=== PATIENT | male | born 1960 | race Caucasian/White ===

== ENCOUNTER → 2018-07-25 10:20 | Outpatient (CLI) | payer OTHER, SELFPAY | PROVIDERS: PCP Family Medicine; Visit Provider Family Medicine | DX: R20.0 Anesthesia of skin (principal) | CPT/HCPCS: 95885; 95886; 95912 ==

== ENCOUNTER → 2019-01-15 13:24 | Outpatient (CLI) | payer OTHER, SELFPAY ==
--- NOTE | 2019-01-15 | DI.MRI.S_ITS ---
PROCEDURE: MR CERVICAL SPINE WO CON INDICATIONS: Anesthesia of skin TECHNIQUE: Noncontrast sagittal T1 spin echo and T2 fast spin echo, sagittal STIR, foraminal oblique sagittal T2 fast spin echo, and axial gradient echo or T2 fast spin echo through the cervical spine. COMPARISON: None. FINDINGS: Image quality: Excellent. Alignment and Curvature: There is trace anterolithesis of C3 on C4, C4 on C5, Grade I anterolithesis of C7 on T1, trace retrolithesis of C5 on C6. Bone Marrow: Marrow demonstrates normal overall signal. Spinal Cord: Visualized spinal cord has normal size and signal. No cerebellar tonsillar herniation. Paraspinous Soft Tissues: No paravertebral masses. Prevertebral soft tissues are normal in thickness. Multilevel moderate to severe disc dessication is present,most severe at C5-6 to C7-T1. C2-C3: Mild disc bulge without spinal stenosis. Moderate left foraminal narrowing with uncovertebral hypertrophy. C3-C4: Mild disc bulge without spinal stenosis. Moderate right and moderate to severe left foraminal narrowing with uncovertebral hypertrophy. C4-C5: Mild disc bulge without spinal stenosis. Severe right and minmal left foraminal narrowing with uncovertebral hypertrophy. C5-C6: Mild disc bulge without spinal stenosis. Severe bilateral foraminal narrowing with uncovertebral hypertrophy. C6-C7: Mild disc bulge with moderate spinal stenosis. Severe bilateral foraminal narrowing with uncovertebral hypertrophy. C7-T1: No disc bulge or spinal stenosis. Mild right foraminal narrowing with uncovertebral hypertrophy. IMPRESSION: 1. Multilevel disc bulge. 2. Multilevel foraminal narrowing, severe at C4-5, C5-6 and C6-7 secondary to uncovertebral arthropathy as well as anterior/retrolisthesis. Dictated by: Shavonne Ames M.D. on 01/16/2019 at 11:52 Approved by: Shavonne Ames M.D. on 01/16/2019 at 13:44
== END ==
PROVIDERS: PCP Family Medicine; Visit Provider Orthopaedic Surgery
DX: M47.812 Spondylosis without myelopathy or radiculopathy, cervical region (principal); M50.21 Other cervical disc displacement, high cervical region; M48.02 Spinal stenosis, cervical region; M43.13 Spondylolisthesis, cervicothoracic region; R20.0 Anesthesia of skin; G11.1 Early-onset cerebellar ataxia
CPT/HCPCS: 72141

== ENCOUNTER 2019-08-11 15:26 | Emergency (ER) | payer MEDICARE, SELFPAY ==
[2019-08-11] VITALS (9 sets, daily range): BP systolic 142–174; BP diastolic 70–83; PULSE 66–82; RESP 16–27; TEMP 37.4; O2SAT 96–98
--- NOTE | 2019-08-11 15:56 | DI.RAD.S_ITS ---
PROCEDURE: XR CHEST 1V INDICATIONS: flu-like symptoms TECHNIQUE: One view of the chest was acquired. COMPARISON: [facility], , CHEST 1 VIEW, 03/14/2011, 9:34. FINDINGS: Surgical changes and devices: None. Lungs and pleura: Left basilar atelectasis. Lungs are otherwise clear. No pleural effusions or pneumothorax. Mediastinum: Mediastinal contours appear normal. Heart size is normal. Bones and chest wall: No suspicious bony lesions. Overlying soft tissues appear unremarkable. IMPRESSION: No acute cardiopulmonary disease. Left basilar atelectasis. Dictated by: Mercedes Palmer M.D. on 08/11/2019 at 16:37 Approved by: Merceeds Palmer M.D. on 08/11/2019 at 16:38
[2019-08-11 16:27] LABS: Add Manual Diff / Slide Review NO; Basophils Absolute Auto 0 /uL (0-100); Basophils Percent Auto 0.4 % (0-2); Eosinophils Absolute Auto 100 /uL (0-450); Eosinophils Percent Auto 1.3 % (2-4); Hematocrit 41.2 % (41-53); Hemoglobin 14.3 g/dL (13.5-17.5); Lymphocytes Absolute Auto 2100 /uL (1100-4500); Lymphocytes Percent Auto 22.7 % (25-40); Mean Corpuscular HGB Conc 34.6 % (30-36); Mean Corpuscular Hemoglobin 32.5 PG (26-34); Monocytes Absolute Auto 900 /uL (0-900); Monocytes Percent Auto 9.8 % (3-14); Neutrophils Absolute Auto 6000 /uL (1500-7000); Neutrophils Percent Auto 65.8 % (50-75); Platelet Count 238 X10^3/uL (150-400); Red Blood Cell Count 4.39 X10^6/uL (4.5-5.9); Red Cell Distribution Width 13.5 % (11.6-14.8); White Blood Cell Count 9.1 X10^3/uL (4.5-11.0)
--- NOTE | 2019-08-11 16:31 | ED.FEVER ---
HPI - Fever General Chief Complaint: Fever Stated Complaint: COVID Symptoms Time Seen by Provider: 08/11/19 15:58 Source: patient and family Mode of arrival: Wheelchair Limitations: no limitations History of Present Illness HPI Narrative: CC: Fever HPI: Her and the patient is a 59-year-old male. He is sitting in a wheelchair. He has a history of Freiderech's Ataxia. The patient is a poor historian with wondering speech. He complains that he has had internal corrosion specialist min today and fever with low-grade temperature. He states that he has had intermittent persistent nausea and vomiting with anorexia since Sunday of last week. He states that he has had decreased coordination intermittent slowed speech. He has been complaining of fever chills and night sweats. He has had a mild headache for the last day prior to admission. He denies any changes in vision or diplopia. He has had no nasal drainage but has trouble swallowing and has a history of aspiration pneumonia in the past. He has had a cough that has been productive of a clear sputum associated with shortness of breath but no chest pain. He denies any indigestion or heartburn. He has had intermittent nausea and vomiting. He states that over the last several weeks he has been anorectic and has lost weight because his pants no longer fit. He denies any urinary symptoms dysuria frequency urgency pain or discomfort. He was concerned that he may have Covid 19 so he came into the emergency department to be evaluated. Related Data Previous Rx's Medication Instructions Recorded cyclobenzaprine 10 mg PO TID PRN #15 tab 08/11/19 doxycycline hyclate 100 mg PO BID #14 tab 08/11/19 naproxen [Naprosyn] 500 mg PO BID PRN #20 tab 08/11/19 ondansetron HCl [Zofran] 4 mg PO Q6H PRN #15 tab 08/11/19 Allergies Allergy/AdvReac Type Severity Reaction Status Date / Time acetaminophen AdvReac Severe Confusion Verified 08/11/19 15:54 Review of Systems Review of Systems Narrative: His review of systems were all negative except for those mentioned in the history of present illness. Patient History Social History Smoking Status: Former smoker Smoking Status: Former smoker alcohol intake frequency: 3 or more drinks per day Substance Use Type: marijuana Exam Narrative Exam Narrative: PHYSICAL EXAM: CONSTITUTIONAL: Awake, Alert, Oriented, Coherent, Cooperative in NAD. Does not appear toxic or ill. Patient is sitting in a wheelchair and refuses to get out of the wheelchair because of having increased pain and discomfort. She HEAD: AT/NC EENT: PERRL, FROM of eyes, no discharge. NOSE:No epistaxis or nasal drainage MOUTH:Oral mucosa is moist and pink, posterior pharynx is without erythema or exudate. NECK: Supple, no obvious JVD, Trachea is midline without stridor, no palpable LN. SPINE: Palpation of the cervical spine sitting in his wheelchair reveals no tenderness or deformity. THORAX: No deformity, retractions, chest wall tenderness. LUNGS: Clear, symmetrical decreased breath sounds without respiratory distress. HEART: Normal heart tones, regular rhythm and rate without murmur. ABDOMEN: Soft, non-tender, no guarding, rebound, rigidity or palpable mass. EXTREMITIES: No edema, deformity, tenderness or cyanosis. SKIN: No rash, bruising, NEURO: Awake, alert, oriented, conversive, cranial nerves II-XII are symmetrical , arms but his legs are splinted in secured to the wheelchair. MENTAL HEALTH: Does not appear anxious or depressed. Initial Vital Signs Initial Vital Signs: Vital Signs Temperature 99.3 F 08/11/19 15:35 Pulse Rate 78 08/11/19 15:35 Respiratory Rate 20 08/11/19 15:35 Blood Pressure 142/83 H 08/11/19 15:35 Pulse Oximetry 98 08/11/19 15:35 Course Course Course Narrative: 1631: The piece shins EKG reveals a normal sinus rhythm with a ventricular rate of 78. DC interval is normal at 132 milliseconds QRS is normal at 78 milliseconds QTC is slightly prolonged at 474 milliseconds and the axis is borderline left axis. The patient has an inverted T-wave in AVF and III with a Q-wave in lead III. There is a QS wave in V1 with flat T-waves. There is an occasional PVC. There are no other acute diagnostic ST or T-wave changes noted. 1826: Chest x-ray reveals no acute cardiopulmonary disease left basilar atelectasis. The patient will be discharged home and treated as though he has acute bronchitis being placed on doxycycline. Orders Ordered: ED Orders 08/11/19 15:55 EKG-12 Lead Stat 07/06/20 15:56 XR chest 1V Stat 08/11/19 16:08 C-Reactive Protein Quant Stat Complete Blood Count AUTO DIFF Stat Comprehensive Metabolic Panel Stat D Dimer Stat Ferritin Stat Lactate (Lactic Acid) Stat Lipase Stat NT-proBNP (BNP-Adult 18+) Stat Procalcitonin Stat Troponin & CK Cardiac Panel Stat 08/11/19 16:12 Blood Culture Stat Discontinued Medications Sodium Chloride (Normal Saline 0.9%) 1,000 mls @ 250 mls/hr IV BOLUS ONE Stop: 08/11/19 19:56 Last Infusion: 08/11/19 19:06 Dose: 0 mls/hr Documented by: Admin: 08/11/19 17:05 Dose: 250 mls/hr Documented by: AMANDA Vital Signs Vital signs: Vital Signs - 8 hr 08/11/19 15:35 08/11/19 16:00 08/11/19 16:30 Temperature 99.3 F Pulse Rate 78 76 76 Respiratory Rate 20 27 H Blood Pressure 142/83 H 148/83 H 144/78 H Pulse Oximetry 98 98 97 08/11/19 17:00 08/11/19 17:30 08/11/19 18:00 Temperature Pulse Rate 73 71 82 Respiratory Rate 20 19 27 H Blood Pressure 142/70 H 142/78 H 147/80 H Pulse Oximetry 97 97 97 08/11/19 18:30 08/11/19 19:00 08/11/19 19:08 Temperature Pulse Rate 66 69 74 Respiratory Rate 16 20 18 Blood Pressure 167/78 H 174/83 H 174/83 H Pulse Oximetry 96 98 98 MDM - Fever Medical Records Attestation: I reviewed the patient's medical records. Lab Data Attestation: I reviewed the patient's lab results. Result diagrams: 08/11/19 16:08 08/11/19 16:08 Labs: Lab Results 08/11/19 08/11/19 08/11/19 Range/Units 16:08 16:08 16:08 WBC 9.1 (4.5-11.0) X10^3/uL RBC 4.39 L (4.5-5.9) X10^6/uL Hgb 14.3 (13.5-17.5) g/dL Hct 41.2 (41-53) % MCV 94.0 (80-100) fL MCH 32.5 (26-34) PG MCHC 34.6 (30-36) % RDW 13.5 (11.6-14.8) % Plt Count 238 (150-400) X10^3/uL Neut % (Auto) 65.8 (50-75) % Lymph % (Auto) 22.7 L (25-40) % [place] % (Auto) 9.8 (3-14) % Eos % (Auto) 1.3 L (2-4) % Baso % (Auto) 0.4 (0-2) % Neut # (Auto) 6000 (2840-7665) /uL Lymph # (Auto) 2100 (7637-2029) /uL [place] # (Auto) 900 (0-900) /uL Eos # (Auto) 100 (0-450) /uL Baso # (Auto) 0 (0-100) /uL D-Dimer < 200 (<230) ng/mL Sodium (137-145) mmol/L Potassium (3.4-5.1) mmol/L Chloride (98-107) mmol/L Carbon Dioxide (22-32) mmol/L BUN (9-20) mg/dL Creatinine (0.66-1.25) mg/dL Estimated GFR (>60) mL/min BUN/Creatinine Ratio (6-22) Glucose (80-110) mg/dL Lactate (0.7-2.1) mmol/L Calcium (8.4-10.2) mg/dL Ferritin (18-464) ng/mL Total Bilirubin (0.2-1.3) mg/dL AST (17-59) IU/L ALT (<50) IU/L Alkaline Phosphatase (38-126) U/L Total Creatine Kinase (55-170) U/L CK-MB (CK-2) CK-MB (CK-2) Rel Index Troponin I (0.01-0.034) ng/mL C-Reactive Protein (<1.0) mg/dL NT-Pro-B Natriuret Pep (<125) pg/mL Total Protein (6.3-8.2) g/dL Albumin (3.5-5.0) g/dL Globulin (1.7-4.1) g/dL Albumin/Globulin Ratio (1.0-2.8) Lipase (23-300) U/L Procalcitonin < 0.05 (<0.5) ng/mL COVID-19 PCR (Negative) 08/11/19 08/11/19 08/11/19 Range/Units 16:08 16:08 16:08 WBC (4.5-11.0) X10^3/uL RBC (4.5-5.9) X10^6/uL Hgb (13.5-17.5) g/dL Hct (41-53) % MCV (80-100) fL MCH (26-34) PG MCHC (30-36) % RDW (11.6-14.8) % Plt Count (150-400) X10^3/uL Neut % (Auto) (50-75) % Lymph % (Auto) (25-40) % [place] % (Auto) (3-14) % Eos % (Auto) (2-4) % Baso % (Auto) (0-2) % Neut # (Auto) (8185-9993) /uL Lymph # (Auto) (0396-5991) /uL [place] # (Auto) (0-900) /uL Eos # (Auto) (0-450) /uL Baso # (Auto) (0-100) /uL D-Dimer (<230) ng/mL Sodium 130 L (137-145) mmol/L Potassium 3.9 (3.4-5.1) mmol/L Chloride 96 L (98-107) mmol/L Carbon Dioxide 24 (22-32) mmol/L BUN 13 (9-20) mg/dL Creatinine 0.53 L (0.66-1.25) mg/dL Estimated GFR > 60.0 (>60) mL/min BUN/Creatinine Ratio 24.5 H (6-22) Glucose 176 H (80-110) mg/dL Lactate 1.8 (0.7-2.1) mmol/L Calcium 9.8 (8.4-10.2) mg/dL Ferritin 18 (18-464) ng/mL Total Bilirubin 0.6 (0.2-1.3) mg/dL AST 35 (17-59) IU/L ALT 38 (<50) IU/L Alkaline Phosphatase 44 (38-126) U/L Total Creatine Kinase 74 (55-170) U/L CK-MB (CK-2) TNP CK-MB (CK-2) Rel Index TNP Troponin I < 0.012 (0.01-0.034) ng/mL C-Reactive Protein < 0.5 (<1.0) mg/dL NT-Pro-B Natriuret Pep 106 (<125) pg/mL Total Protein 7.4 (6.3-8.2) g/dL Albumin 4.2 (3.5-5.0) g/dL Globulin 3.2 (1.7-4.1) g/dL Albumin/Globulin Ratio 1.3 (1.0-2.8) Lipase (23-300) U/L Procalcitonin (<0.5) ng/mL COVID-19 PCR Negative (Negative) 08/11/19 Range/Units 16:08 WBC (4.5-11.0) X10^3/uL RBC (4.5-5.9) X10^6/uL Hgb (13.5-17.5) g/dL Hct (41-53) % MCV (80-100) fL MCH (26-34) PG MCHC (30-36) % RDW (11.6-14.8) % Plt Count (150-400) X10^3/uL Neut % (Auto) (50-75) % Lymph % (Auto) (25-40) % [place] % (Auto) (3-14) % Eos % (Auto) (2-4) % Baso % (Auto) (0-2) % Neut # (Auto) (6834-7090) /uL Lymph # (Auto) (5584-3196) /uL [place] # (Auto) (0-900) /uL Eos # (Auto) (0-450) /uL Baso # (Auto) (0-100) /uL D-Dimer (<230) ng/mL Sodium (137-145) mmol/L Potassium (3.4-5.1) mmol/L Chloride (98-107) mmol/L Carbon Dioxide (22-32) mmol/L BUN (9-20) mg/dL Creatinine (0.66-1.25) mg/dL Estimated GFR (>60) mL/min BUN/Creatinine Ratio (6-22) Glucose (80-110) mg/dL Lactate (0.7-2.1) mmol/L Calcium (8.4-10.2) mg/dL Ferritin (18-464) ng/mL Total Bilirubin (0.2-1.3) mg/dL AST (17-59) IU/L ALT (<50) IU/L Alkaline Phosphatase (38-126) U/L Total Creatine Kinase (55-170) U/L CK-MB (CK-2) CK-MB (CK-2) Rel Index Troponin I (0.01-0.034) ng/mL C-Reactive Protein (<1.0) mg/dL NT-Pro-B Natriuret Pep (<125) pg/mL Total Protein (6.3-8.2) g/dL Albumin (3.5-5.0) g/dL Globulin (1.7-4.1) g/dL Albumin/Globulin Ratio (1.0-2.8) Lipase 288 (23-300) U/L Procalcitonin (<0.5) ng/mL COVID-19 PCR (Negative) ECG Data Attestation: I personally reviewed and interpreted this ECG as follows: Discharge Plan Departure Patient Disposition: Home Clinical Impression: Bronchitis Fever Qualifiers: Fever type: unspecified Qualified Code(s): R50.9 - Fever, unspecified Discharge Date/Time: 08/11/19 19:10 Instructions: DI for Acute Bronchitis, DI for Costochondritis, DI for Fever (Symptom) -- Adult Activity Restrictions/Additional Instructions: 1. You need to follow-up with your primary care physician and be re-evaluated in 48-72 hours. 2. Your chest x-ray is negative for any acute cardiopulmonary pathology or pneumonia. You are being treated as though you have acute bronchitis. Your being prescribed doxycycline 100 mg twice a day for the next 7 days. 3. For any pain and discomfort take Naprosyn 500 mg twice a day as needed for the pain and discomfort for muscle spasms take the cyclobenzaprine 10 mg 3 times a day. 4. Her liver function tests were within normal limits as were the rest of your cardiac enzymes and blood chemistries. 5. Your Covidt test was negative. Prescriptions: New doxycycline hyclate 100 mg tablet 100 mg PO BID Qty: 14 RF: 0 naproxen [Naprosyn] 500 mg tablet 500 mg PO BID PRN (Reason: pain) Qty: 20 RF: 0 cyclobenzaprine 10 mg tablet 10 mg PO TID PRN (Reason: muscle spasm) Qty: 15 RF: 0 ondansetron HCl [Zofran] 4 mg tablet 4 mg PO Q6H PRN (Reason: nausea and vomiting) Qty: 15 RF: 0 Referrals: Rhianna Scanlon MD [Primary Care Provider] -
[2019-08-11 16:45] LABS: Lactate (Lactic Acid) 1.8 mmol/L (0.7-2.1)
[2019-08-11 16:46] LABS: Alanine Aminotransferase 38 IU/L (<50); Albumin 4.2 g/dL (3.5-5.0); Albumin Globulin Ratio 1.3 (1.0-2.8); Alkaline Phosphatase 44 U/L (38-126); Aspartate Aminotransferase 35 IU/L (17-59); BUN Creatinine Ratio 24.5 (6-22); Bilirubin Total 0.6 mg/dL (0.2-1.3); Blood Urea Nitrogen 13 mg/dL (9-20); Calcium 9.8 mg/dL (8.4-10.2); Carbon Dioxide 24 mmol/L (22-32); Chloride 96 mmol/L (98-107); Creatine Kinase 74 U/L (55-170); Estimated Glomerular Filt Rate > 60.0 mL/min (>60); Globulin 3.2 g/dL (1.7-4.1); Glucose 176 mg/dL (80-110); HEMOLYSIS < 15 (0-50); Potassium 3.9 mmol/L (3.4-5.1); Sodium 130 mmol/L (137-145); Total Protein 7.4 g/dL (6.3-8.2)
[2019-08-11 16:55] LABS: Procalcitonin < 0.05 ng/mL (<0.5)
[2019-08-11 16:58] LABS: NT-proBNP (BNP-Adult 18+) 106 pg/mL (<125); Troponin I < 0.012 ng/mL (0.01-0.034)
[2019-08-11] MEDS: SODIUM CHLORIDE 0.9% 1,000 ML 250 ML IV (17:05)
[2019-08-11 17:08] LABS: Lipase 288 U/L (23-300)
[2019-08-11 17:13] LABS: D Dimer < 200 ng/mL (<230)
[2019-08-11 17:20] LABS: Ferritin 18 ng/mL (18-464)
[2019-08-11 17:25] LABS: COVID19 -Nasal RAPID Negative (Negative)
[2019-08-11 17:32] LABS: C-Reactive Protein Quant < 0.5 mg/dL (<1.0)
== END 2019-08-11 19:10 | disposition home or self-care (01) ==
PROVIDERS: Emergency Provider Emergency Medicine; PCP Family Medicine
DX: J40 Bronchitis, not specified as acute or chronic (principal); R50.9 Fever, unspecified; R11.2 Nausea with vomiting, unspecified; R63.0 Anorexia; Z03.818 Encounter for observation for suspected exposure to other biological agents ruled out
CPT/HCPCS: 36415; 71045; 80053; 82550; 82728; 83605; 83690; 83880; 84145; 84484; 85025; 85379; 86140; 87040; 87635; 93005; 93010; 96360; 96361; 99284; 99285

== ENCOUNTER 2020-04-29 11:22 | Inpatient (IN) | payer MEDICARE, SELFPAY ==
[2020-04-29 11:30] VITALS: BP 137/90; PULSE 77; RESP 14; TEMP 37; O2SAT 99
[2020-04-29 12:30] VITALS: BMI 26.0
[2020-04-29 13:02] LABS: Add Manual Diff / Slide Review NO; Basophils Absolute Auto 100 /uL (0-100); Basophils Percent Auto 0.6 % (0-2); Eosinophils Absolute Auto 100 /uL (0-450); Eosinophils Percent Auto 1.3 % (2-4); Hematocrit 38.8 % (41-53); Hemoglobin 13.2 g/dL (13.5-17.5); Lymphocytes Absolute Auto 2500 /uL (1100-4500); Lymphocytes Percent Auto 28.2 % (25-40); Mean Corpuscular Hemoglobin 31.8 PG (26-34); Mean Corpuscular Volume 93.4 fL (80-100); Monocytes Absolute Auto 900 /uL (0-900); Monocytes Percent Auto 9.8 % (3-14); Neutrophils Absolute Auto 5400 /uL (1500-7000); Neutrophils Percent Auto 60.1 % (50-75); Platelet Count 298 X10^3/uL (150-400); Red Blood Cell Count 4.15 X10^6/uL (4.5-5.9); Red Cell Distribution Width 13.7 % (11.6-14.8)
[2020-04-29 13:03] LABS: COVID19 - ADMIT (NP swab/PCR) Negative (Negative)
[2020-04-29 13:08] LABS: Prothrombin Time 11.8 SECONDS (10.1-12.7)
[2020-04-29 13:11] LABS: PTT Partial Thromboplastin Tim 39 SECONDS (26.4-36.2)
[2020-04-29 13:13] LABS: Alanine Aminotransferase 38 IU/L (<50); Albumin Globulin Ratio 1.1 (1.0-2.8); Alkaline Phosphatase 74 U/L (38-126); Aspartate Aminotransferase 39 IU/L (17-59); BUN Creatinine Ratio 26.4 (6-22); Bilirubin Total 0.4 mg/dL (0.2-1.3); Bilirubin Unconjugated 0.3 mg/dL (0.0-1.1); Blood Urea Nitrogen 14 mg/dL (9-20); Calcium 9.3 mg/dL (8.4-10.2); Carbon Dioxide 29 mmol/L (22-32); Chloride 99 mmol/L (98-107); Estimated Glomerular Filt Rate > 60.0 mL/min (>60); Globulin 3.7 g/dL (1.7-4.1); Glucose 139 mg/dL (80-110); HEMOLYSIS < 15 (0-50); Potassium 3.9 mmol/L (3.4-5.1); Sodium 136 mmol/L (137-145); Total Protein 7.7 g/dL (6.3-8.2)
[2020-04-29 13:16] LABS: C-Reactive Protein Quant 1.6 mg/dL (<1.0)
[2020-04-29 13:23] LABS: Erythrocyte Sedimentation Rate 69 MM/HR (0-15)
[2020-04-29 13:30] LABS: Procalcitonin 0.05 ng/mL (<0.5)
--- NOTE | 2020-04-29 14:15 | PM.HP.1 ---
History of Present Illness History of Present Illness Date Patient Seen: 04/29/20 Time Patient Seen: 14:15 Chief complaint: Diabetic foot ulcer Narrative: Marc Reis is a 59 year old male with PMH of Freidrich's ataxia, DM2, chronic pain who initially was referred to the [place] ER over concern for osteomyelitis on 04/28. He was accepted for direct admission yesterday, but did not arrive at until this morning. Patient states he has been dealing with this chronic wound on his left foot for approximately 3-4 weeks. It started off a bit smaller and has been slowly increasing in size. He had a debridement in [place], but his wound has continued to grow. He had been on cephalexin for outpatient treatment without improvement over the prior 4 days. He has no sensation in his feet due to both his diabetes and ataxia. He is in a wheelchair at baseline and has home health whom has been doing dressing changes 3x per week he says. He denies any systemic symptoms including fever, chills, nausea, vomiting, abdominal pain. He denies any lower extremity pain but has no sensation, and has not had sensation for many many years. He also has been seeing a speech therapist recently for choking with swallowing recently, thought to be due to his ataxia. Upon admission, patient's vital signs are unremarkable. Laboratory evaluation reveals no leukocytosis with a WBC of 9.0, and otherwise unremarkable CBC. ESR is mildly elevated at 69, report from his ER visit showed an ESR of 76. CRP is mildly elevated at 1.6. Procalcitonin is negative at 0.05. Chemistries revealed a glucose of 139, the remainder hit his chemistries were unremarkable. Reports of imaging from 04/27 state there is early osteomyelitis of his left 1st MTP joint, no imaging is available for review. No cultures were reported to have been taken. Discussed with Dr. Ramos of orthopedic surgery, agrees to consultation, but requests repeat XR and MRI imaging to see the extent of involvement, which has been ordered. Patient History Medical History (Updated 04/29/20 @ 14:59 by Rich Mejia DO) Chronic pain Depression Friedreich ataxia Osteomyelitis Osteoporosis Type 2 diabetes mellitus Surgical History (Updated 04/29/20 @ 14:57 by Rich Mejia DO) No pertinent past surgical history Family & Social History Social History: household members family Prior Living Arrangements House Safety & Behavioral: Feels Safe in Current No Environment Been Physically Hurt or No Threatened By a Person Suicidal Ideation Description None Suicide Plan Description No Plan Tobacco & Substance use: Smoking Status Former smoker alcohol intake frequency 0-2 drinks per day Substance Use Type marijuana Meds Home Medications and Allergies Home Medications Medication Instructions Recorded Confirmed Type cephalexin 500 mg PO QID 04/29/20 04/29/20 History duloxetine 30 mg PO QAM 04/29/20 04/29/20 History insulin aspart U-100 [Novolog See Rx Instructions .ROUTE .COMPLEX 04/29/20 04/29/20 History Flexpen U-100 Insulin] insulin glargine [Basaglar KwikPen 32 unit SUBCUT AC 04/29/20 04/29/20 History U-100 Insulin] metformin 1,000 mg DIRECTED 04/29/20 04/29/20 History oxycodone 5 mg TID 04/29/20 04/29/20 History pravastatin 20 mg PO BEDTIME 04/29/20 04/29/20 History Allergies Allergy/AdvReac Type Severity Reaction Status Date / Time acetaminophen AdvReac Severe Confusion Verified 08/11/19 15:54 Review of Systems Review of Systems Narrative: All other systems reviewed with the patient and are negative unless otherwise stated. Exam Vital Signs (past 8 hours): - 04/29/20 11:30 Temperature 98.6 F Pulse Rate 77 Respiratory Rate 14 Blood Pressure 137/90 Pulse Oximetry 99 Oxygen Delivery Method Room Air Oxygen Flow Rate 0 Narrative Exam Narrative: GENERAL APPEARANCE: Well developed, well nourished, male in no acute distress. SKIN/nails - bilateral nail fungus, L 1st MTP joint with 2x2cm ulceration with what may be exposed bone. Wound with no surrounding erythema, appears quite clean, and no tenderness. HEENT: Normocephalic atraumatic, extraocular muscles are intact, oropharynx is clear and mucous membranes are moist, neck is supple without adenopathy NECK: Supple and symmetric. There was no thyroid enlargement, and no tenderness, or masses were felt. CHEST: Normal AP diameter and normal contour. LUNGS: Auscultation of the lungs revealed no wheezes, rhonchi, or rales. CARDIOVASCULAR: There was a regular rate and rhythm without any murmurs, gallops, rubs. DP pulses +2 bilaterally. ABDOMEN: Soft and nontender with normal bowel sounds. No ascites was noted. MUSCULOSKELETAL: There was no tenderness or effusions noted. Muscle strength and tone were normal. EXTREMITIES: No clubbing or edema. RLE mildly cold, chronic appearing venous skin changes. NEUROLOGIC: Alert and oriented x 3. Slow speech. Cooperative and stable behavior. Objective Labs Result Diagrams: 04/29/20 12:35 04/29/20 12:35 Labs: Laboratory Results - last 24 hr 04/29/20 04/29/20 04/29/20 11:57 12:35 12:35 WBC 9.0 RBC 4.15 L Hgb 13.2 L Hct 38.8 L MCV 93.4 MCH 31.8 MCHC 34.0 RDW 13.7 Plt Count 298 Neut % (Auto) 60.1 Lymph % (Auto) 28.2 [place] % (Auto) 9.8 Eos % (Auto) 1.3 L Baso % (Auto) 0.6 Neut # (Auto) 5400 Lymph # (Auto) 2500 [place] # (Auto) 900 Eos # (Auto) 100 Baso # (Auto) 100 ESR PT INR APTT Sodium 136 L Potassium 3.9 Chloride 99 Carbon Dioxide 29 BUN 14 Creatinine 0.53 L Estimated GFR > 60.0 BUN/Creatinine Ratio 26.4 H Glucose 139 H Calcium 9.3 Magnesium 2.0 Total Bilirubin 0.4 Conjugated Bilirubin 0.0 Unconjugated Bilirubin 0.3 AST 39 ALT 38 Alkaline Phosphatase 74 C-Reactive Protein Total Protein 7.7 Albumin 4.0 Globulin 3.7 Albumin/Globulin Ratio 1.1 Procalcitonin 0.05 SARS-CoV-2 (PCR) Negative 04/29/20 04/29/20 04/29/20 12:35 12:35 12:35 WBC RBC Hgb Hct MCV MCH MCHC RDW Plt Count Neut % (Auto) Lymph % (Auto) [place] % (Auto) Eos % (Auto) Baso % (Auto) Neut # (Auto) Lymph # (Auto) [place] # (Auto) Eos # (Auto) Baso # (Auto) ESR 69 H PT 11.8 INR 1.0 APTT 39 H Sodium Potassium Chloride Carbon Dioxide BUN Creatinine Estimated GFR BUN/Creatinine Ratio Glucose Calcium Magnesium Total Bilirubin Conjugated Bilirubin Unconjugated Bilirubin AST ALT Alkaline Phosphatase C-Reactive Protein 1.6 H Total Protein Albumin Globulin Albumin/Globulin Ratio Procalcitonin SARS-CoV-2 (PCR) Assessment & Plan Assessment & Plan narrative: Marc Reis is a 59 year old male with PMH of Freidrich's ataxia, DM2, chronic pain who initially was referred to the [place] ER over concern for osteomyelitis on 04/28. He was accepted for direct admission yesterday, but did not arrive at until this morning. Direct admission for probable osteomyelitis today, IV antibiotics, and surgical consultation. 1. Acute osteomyelitis and diabetic foot ulcer of L 1st MTP joint, present on admission. - will order XR imaging and MRI per orthopedic surgery to assist with decision making regarding future management. - Dr. Ramos was consulted on admission, may speak with podiatry for further management. Appreciate recommendations. - start antibiotics, cefepime 2g q8 hour for anti-pseudomonal activity pending cultures, and Vancomycin. - ESR and CRP mildly elevated on admission. 2. DM2, chronic - will check a1c, - continue home 32 U lantus, medium sliding scale 7U TID AC and titrate as needed. 3. Jesus's ataxia, chronic - Patient reports difficulty with swallowing. Will check Speech evaluation. Consider PT/OT, although patient gets around with wheel chair. Has home health at baseline. 4. chronic pain - continue home oxycodone 5 mg as needed. 5. HLD, chronic - continue home pravastatin 20mg 6. Depression, chronic, - continue home duloxetine. Code: Full Dispo: admitted under inpatient status. DVT: hold pending surgical consultation. COVID-19 COVID-19 status: Negative
--- NOTE | 2020-04-29 14:37 | DI.RAD.S_ITS ---
PROCEDURE: XR FOOT LT MIN 3V INDICATIONS: osteomyelitis TECHNIQUE: 3 views of the foot were acquired. COMPARISON: [facility], CR, FOOT 3V LEFT, 12/02/2008, 11:11. FINDINGS: Bones: There is generalized osteopenia. No acute fracture or dislocation is seen. A small osseous erosion at the medial aspect of the 1st proximal phalangeal base and possibly within the 1st metatarsal head are suspicious for osteomyelitis. Focal ossifications adjacent to the medial malleolar tip are most likely the sequela of prior trauma. Soft tissues: Soft tissue ulcer is seen at the medial aspect of the foot adjacent to the 1st metatarsophalangeal joint. IMPRESSION: Soft tissue ulcer is seen at the medial aspect the forefoot with small osseous erosion at the adjacent portion of the 1st proximal phalangeal base and possibly the 1st metatarsal head. Findings are suspicious for osteomyelitis. Correlation with upcoming MRI of the foot is recommended, which is scheduled for later the same day. Dictated by: Marshal Milan M.D. on 04/29/2020 at 14:31 Approved by: Marshal Milan M.D. on 04/29/2020 at 14:37
--- NOTE | 2020-04-29 14:37 | DI.MRI.S_ITS ---
PROCEDURE: MR FOOT LT WO/W CON INDICATIONS: evaluation of osteomyelitis TECHNIQUE: Noncontrast sagittal T1 spin echo and T2 fast spin echo with fat saturation, long-axis T1 spin echo and T2 fast spin echo with fat saturation; short-axis T1 spin echo, proton density fast spin echo, and T2 fast spin echo with fat saturation through the forefoot. Post-contrast short axis, long axis, and sagittal T1 spin echo with fat saturation through the forefoot. COMPARISON: [facility], CR, XR FOOT LT MIN 3V, 04/29/2020, 14:53. FINDINGS: Image quality: Excellent. Bones and joints: There is osseous edema and enhancement within the 1st metatarsal head and 1st proximal phalanx adjacent to the soft tissue ulcer, which is suspicious for osteomyelitis. There is also moderate edema within the medial hallux sesamoid and trace edema in the lateral hallux sesamoid. The remaining osseous structures are intact without internal edema or enhancement. Soft tissues: A soft tissue ulcer is seen at the medial aspect of the foot at the level of the 1st metatarsophalangeal joint extending to the level of the bone. There is a focal small nonenhancing fluid collection adjacent to the medial 1st metatarsal head measuring 20 x 23 x 4 mm that may represent a superficial abscess. Diffuse subcutaneous edema and enhancement is seen in the surrounding soft tissues extending into the dorsum of the foot. Edema and enhancement is seen within the abductor hallucis muscle compatible with myositis. Mild flexor hallucis longus tenosynovitis is seen distally. There is mild fatty infiltration and increased T2 signal intensity within the intrinsic foot musculature that most likely represents chronic denervation changes. No additional flexor or extensor tendon injury is seen. IMPRESSION: 1. Soft tissue ulcer at the medial aspect of the forefoot extending to the level of the cortical bone with a small subcutaneous nonenhancing fluid collection that could represent a small superficial abscess. Surrounding soft tissue edema/cellulitis is seen extending into the dorsal forefoot. 2. Osseous edema and enhancement in the adjacent portions of the 1st metatarsal head and 1st proximal phalanx are consistent with osteomyelitis. There is also mild edema and enhancement in the hallux sesamoids. 3. Edema and enhancement within the abductor hallucis muscle is compatible with mild myositis. There is mild tenosynovitis of the distal flexor hallucis longus tendon. 4. Mild edema and fatty infiltration in the intrinsic foot musculature diffusely is most likely related to chronic denervation changes. Dictated by: Marshal Milan M.D. on 04/30/2020 at 10:12 Approved by: Marshal Milan M.D. on 04/30/2020 at 10:23
[2020-04-29 15:40] VITALS: BP 134/80; PULSE 74; RESP 18; TEMP 36.9; O2SAT 92
[2020-04-29] MEDS: CEFEPIME 2 GM in SODIUM CHLORIDE 0.9% 100 ML 200 ML IV ×2 (17:10→23:21)
--- NOTE | 2020-04-29 17:12 | ST.IPCSEOM ---
Visit Care Team Role Provider Type Rhianna Scanlon MD Primary Care Provider Non-Staff Specialty: Medical Address: [address] [facility], [place], [address] Email: Wendi Ramos MD Other Providers Physician Specialty: Orthopedic Surgery Address: [address] [place] [address], [id number] Email: [email or web address] Rich Mejia DO Admit Provider Physician Attending Provider Referring Provider Specialty: Internal Medicine Address: [address] [place] [address], [id number] Email: [email or web address] Past Medical History (Last Updated 04/29/20 @ 14:59 by Rich Mejia DO) Chronic pain (Medical) Depression (Medical) Friedreich ataxia (Medical) Osteomyelitis (Medical) Osteoporosis (Medical) Type 2 diabetes mellitus (Medical) Speech-Language Pathology Swallow Evaluation PHYSICIAN RELATIONS MANAGER Clinical Swallow Evaluation Start: 04/29/20 16:42 Freq: Status: Active Protocol: Document 04/29/20 16:43 LNK (Rec: 04/29/20 17:10 LNK [id number]) Clinical Swallow Evaluation Session Time Visit Start Time 16:00 Visit Stop Time 16:30 Total Visit Minutes [address] Mejia Reason for Referral dysphagia Setting Assessment Location Acute Care Visit Type Note Type Initial evaluation Next Note Type Next Note Type Treatment Note Patient Information Identification Type Name,ID Card History Marc Reis is a 59 year old male with PMH of Freidrich's ataxia, DM2, chronic pain who initially was referred to the [place] ER over concern for osteomyelitis on 04/28. He also has been seeing a speech therapist recently for choking with swallowing recently, thought to be due to his ataxia. Pt was observed to be coughing this p.m. swallow evaluation ordered. Subjective Observations Pt was sitting in. Introduced myself and purpose for seeing him. He agreed to a swallow evaluation, remarking that he is seeing a PHYSICIAN RELATIONS MANAGER at home for swallowing and is very aware of his risks and what he can and cannot eat. Reported by Patient Current Diet Regular,Thin liquids Baseline Feeding Method Independent in self-feeding Objective Assessment Mental Status Alert,Responsive,Cooperative Oral Integrity WFL Dentition Within normal limits Lip Function Mild impairment Observation of Lips at Rest Symmetrical Pucker Within normal limits,Reduced strength Lip Retraction Within normal limits Alternating Pucker/Lip Retraction Reduced range of motion Tongue Function Mild impairment Observations of Tongue at Rest Within normal limits Tongue Protrusion Within normal limits Tongue Retraction Within normal limits Tongue Lateralization Reduced range of motion, Reduced strength Hard/Soft Palate Function Within normal limits Comment Pt presented with OME that was WFL for structure. Pt was able to perform all required movements with slowed rate of movement. His speech is mildly dysarthric, which does not impact his speech intelligibility. Diadochokinesis is slow with mild reduction in accuracy and speed. Pt is very aware of limitations. Food and Liquid Trials Position During Assessment Upright (90 degrees) Liquids Trialed Ice chips,Thin Solids Trialed Mechanical Soft,Regular Administration Type Tea spoon,Cup single sip,Straw ,Self-feeding Oral Impairment Mildly impaired Oral Phase Comments Pt is currently on a regular texture diet with thin liquids . No oral residue was observed following all trials. Pharyngeal Impairment Mildly impaired Pharyngeal Phase Comments Hyolaryngeal elevation was noted to be adequate per palpation. He tucks his chin for all swallows. He had a slight audible gulp which indicated reduced coordination of the swallow structures. This is to be expected given pt's diagnosis. No cough/choke observed. He safely tolerated all trials with a throat clear x1 (WFL). No wet voicing noted. Pt is very aware of the strategies he uses to reduce his aspiration risk. Fatigue/Endurance Endurance WNL Strategies Attempted Head rotation Response/Comments Pt was observed to use the strategies he listed when discussing his dysphagia. Findings Swallowing Function Within functional limits Severity of Swallow Impairment Within functional limits Comments Pt's dx; Pt's esophagus will spasm at times that may trigger coughing Prognosis Good Based on Cognitive status Comment Pt is at risk for aspiration. However, he has been receiving ST services at home for swallowing. He is very aware of the strategies he needs to use in order to safely tolerate PO intake. He reports that he takes his medication with water. He prefers using a straw because it enables a chin tuck naturally. Impact on Safety and Functioning Risk for aspiration Recommendations Instrumental Assessment No Swallowing Treatment Yes Frequency X1 Duration f/u to monitor diet tolerance Recommended Solids Regular Recommended Liquids Thin Other Recommendations HOB upright at 90 degrees - see diagram at head of bed along with aspiration precautions Safety Precautions/Swallowing 1 to 1 distant supervision, Recommendations Reduce distractions,Remain upright (90 degrees) during all oral intake,Upright position at least 30 minutes after meals,Slow rate; swallow between bites,Multiple swallows Medication Recommendations As Tolerated Education Patient/Caregiver Education Described results of evaluation,Patient expressed understanding of evaluation, Patient expressed agreement with goals & treatment plans, Patient expressed understanding of safety precautions,Patient expressed understanding of feeding recommendations Goals Long-term Goals Pt will safely tolerate the least restrictive diet to meet nutrition and hydration needs without s/sx aspiration.
[2020-04-29] MEDS: INSULIN ASPART 100 UNIT/ML INSULN PEN SUBCUT (17:18)
[2020-04-29] MEDS: INSULIN ASPART 100 UNIT/ML INSULN PEN 6 UNIT SUBCUT (17:18)
[2020-04-29] MEDS: OXYCODONE IR 5 MG TABLET 10 MG PO (18:01)
[2020-04-29] MEDS: VANCOMYCIN 1,500 MG/300 ML PIGGYBACK 200 MG IV (18:12)
[2020-04-29 19:11] LABS: Hemoglobin A1C% w Est Avg Glu 7.6 % (4.0-6.0)
--- NOTE | 2020-04-29 19:25 | P.EN_ITS ---
Event Note Event Note: Further medical records were obtained from [facility], with a slightly different story than the patient presented himself. Notes dated from March 01 noted that the patient had had multiple diabetic foot ulcers, which had been unhealing for 3 months, so since November of 2019. They recommended arterial studies which had not been completed. He ultimately followed up with physician on March 16 who was unable to tell if the wound appeared infected or not but start him on a 7 day trial of antibiotics. He then followed up again on March 26 with debridement performed in the primary care clinic, described as debrided to Life tissue. On 04/27 he was again seen in the primary care clinic after being cared for with home health. He reportedly spilled something according to the documentation which cause worsening. He was started on oral antibiotics and x-ray was performed, after the x-ray returned this is when he was referred to the ER for IV antibiotics for presumed osteomyelitis.
--- NOTE | 2020-04-29 19:30 | DI.US.S_ITS ---
PROCEDURE: US ARTERIAL DUPLEX LE LT INDICATIONS: NON-HEALING FOOT ULCER TECHNIQUE: Color and pulse Doppler interrogation was performed of the left lower extremity arterial system, with image documentation. COMPARISON: None. FINDINGS: Common femoral artery: 142 cm/sec, with triphasic flow. Deep femoral artery: 112 cm/sec, with triphasic flow. Proximal superficial femoral artery: 116 cm/sec, with triphasic flow. Mid superficial femoral artery: 153 cm/sec, with biphasic flow. Distal superficial femoral artery: 106 cm/sec, with triphasic flow. Popliteal artery: 86 cm/sec, with triphasic flow. Posterior tibial artery: 91 cm/sec, with biphasic flow. Anterior tibial artery/dorsalis pedis: 103/98 cm/sec, with biphasic flow. Lewis-scale imaging description: Mild atherosclerotic disease with no focal stenosis identified. IMPRESSION: No significant stenosis. Dictated by: Syed Shabazz M.D. on 04/30/2020 at 9:40 Approved by: Syed Shabazz M.D. on 04/30/2020 at 9:42
[2020-04-29 20:05] VITALS: BP 115/74; PULSE 77; RESP 18; TEMP 36.6
[2020-04-29] MEDS: PRAVASTATIN 20 MG TABLET PO (21:45)
[2020-04-29 23:53] VITALS: BP 144/85; PULSE 67; RESP 16; TEMP 36.2; O2SAT 94
[2020-04-30] VITALS (17 sets, daily range): BP systolic 104–133; BP diastolic 48–99; PULSE 69–91; RESP 12–95; TEMP 36.4–37.1; O2SAT 18–99
--- NOTE | 2020-04-30 | PATH_ITS ---
[facility] Accession Number: [id number] . 01 Material submitted: . foot - BONE 1ST METATARSAL HEAD LEFT FOOT . 01 Clinical history: . DIABETIC FOOT ULCER . 01 Diagnosis: Bone, First Metatarsal Head, Left Foot, Excision: Trabecular bone with dense marrow neutrophilic inflammation, suggestive of acute osteomyeltis. Inflammatory changes extend to the inked tissue edge. . Note: Clinical and radiographic correlation is recommended. MRV 05/05/2020 1131 Local . 01 Electronically signed: . Alan Monteiro MD, Dermatopathologist NPI- [id number] . 01 Gross description: . The specimen is received in formalin, labeled bone first metatarsal head and consists of a 3.0 x 2.0 x 1.5 cm cavazos portion of bone with an irregular margin and an opposing smooth convex articular surface. The margin is inked blue. The specimen is sectioned to reveal cavazos trabeculated cut surfaces. Hiv Cts Specialist sections are submitted to include the margin (blue) in cassette A1 (following decalcification). ([id number]) /MRV 05/04/2020 1405 Local . 01 Pathologist provided ICD-10: M86.10 . 01 CPT . 871807, [id number] Performed at: [address], [place], [place] [id number] MD Orlando Childress MD Phone: [phone]
[2020-04-30] MEDS: VANCOMYCIN 1,000 MG/200 ML PIGGYBACK 200 MG IV ×4 (00:17→18:37)
[2020-04-30] MEDS: OXYCODONE IR 5 MG TABLET PO ×3 (02:54→21:17)
--- NOTE | 2020-04-30 03:48 | PC.NURSE ---
0143: patient is alert and oriented but with very slow speech. Due to Freidrick's ataxia has loss of coordination. Breath sounds CTA with RA sat of 94%. HRR w/telemetry reading of SR. BP elevated at 144/85. Denies nausea. BT presesnt and is passing flatus. Reports he is continent of stool. Is using urinal to void; denies dysuria or frequency but states he has some chronic urgency. Is able to move himself in bed. Nonambulatory but transfers to wheelchair stand/pivot with 1-2 assists. Diabetic foot ulcer on medial aspect of left foot noted. Also has multiple scabbed abrasions on toes of bilateral feet. Both feet appear erythemic, are warm to touch and has some non pitting edema present. Also has scabbed abrasions on bilateral knees and upper extremities. Had bilateral calf SCD's on at shift change but requested they be removed around midnight as stated they were causing increased discomfort to feet. At time of assessment he denied pain but at 0254 was complaining of 4/10 chronic low back pain and 6/10 left foot pain and was medicated with Oxycodone and is now asleep. Fall risk score is high and bed alarm is activated. Has been NPO since 0000 as may need possible surgery later today.
[2020-04-30] MEDS: SODIUM CHLORIDE 0.9% FLUSH 10 ML IV ×4 (06:07→23:32)
[2020-04-30 06:17] LABS: Cholesterol 126 mg/dL (140-199); HDL Cholesterol 38 mg/dL (40-60); LDL Cholesterol Calculated 65 mg/dL (<100); Triglycerides 117 mg/dL (35-150)
[2020-04-30] MEDS: CEFEPIME 2 GM in SODIUM CHLORIDE 0.9% 100 ML 200 ML IV ×3 (07:37→23:31)
--- NOTE | 2020-04-30 08:39 | SLP.IPNOTE ---
Pt is currently NPO due to possible surgery later today. Will delay ST at this time and check with nursing later today for an update on pt's status.
--- NOTE | 2020-04-30 09:48 | P.PN_ITS ---
Subjective Subjective Date Patient Seen: 04/30/20 Time Patient Seen: 09:00 Interval history: Patient reports pain in the arch of his left foot that developed last night and has progressively worsened. At the moment he states that his pain is a 4/10 in intensity in the left foot. Exam Vital Signs (past 8 hours): - 04/30/20 03:30 04/30/20 07:35 Temperature 97.8 F 97.9 F Pulse Rate 75 73 Respiratory Rate 16 30 H Blood Pressure 133/99 H 131/79 Pulse Oximetry 99 94 Oxygen Delivery Method Room Air Oxygen Flow Rate 0 Narrative Exam Narrative: Patient is lying in bed in room while having a LLE doppler US performed. An ulcer is noted on the medial aspect of the left foot at the base of the great toe. Ulcer has mild surrounding erythema and skin breakdown. Involuntary muscle contractions of the bilateral lower extremities noted on exam. Const General: cooperative HENMT Head: normal to inspection Resp Effort & Inspection: normal respiratory effort and able to speak in complete sentences Objective Labs Result Diagrams: 04/29/20 12:35 04/29/20 12:35 Labs: Laboratory Results - last 24 hr 04/29/20 04/29/20 04/29/20 11:57 12:35 12:35 WBC 9.0 RBC 4.15 L Hgb 13.2 L Hct 38.8 L MCV 93.4 MCH 31.8 MCHC 34.0 RDW 13.7 Plt Count 298 Neut % (Auto) 60.1 Lymph % (Auto) 28.2 Hitchcock % (Auto) 9.8 Eos % (Auto) 1.3 L Baso % (Auto) 0.6 Neut # (Auto) 5400 Lymph # (Auto) 2500 Hitchcock # (Auto) 900 Eos # (Auto) 100 Baso # (Auto) 100 ESR PT INR APTT Sodium Potassium Chloride Carbon Dioxide BUN Creatinine Estimated GFR BUN/Creatinine Ratio Glucose Hemoglobin A1c 7.6 H Calcium Magnesium Total Bilirubin Conjugated Bilirubin Unconjugated Bilirubin AST ALT Alkaline Phosphatase C-Reactive Protein Total Protein Albumin Globulin Albumin/Globulin Ratio Triglycerides Cholesterol LDL Cholesterol, Calc HDL Cholesterol Procalcitonin SARS-CoV-2 (PCR) Negative 04/29/20 04/29/20 04/29/20 12:35 12:35 12:35 WBC RBC Hgb Hct MCV MCH MCHC RDW Plt Count Neut % (Auto) Lymph % (Auto) Hitchcock % (Auto) Eos % (Auto) Baso % (Auto) Neut # (Auto) Lymph # (Auto) Hitchcock # (Auto) Eos # (Auto) Baso # (Auto) ESR 69 H PT 11.8 INR 1.0 APTT 39 H Sodium 136 L Potassium 3.9 Chloride 99 Carbon Dioxide 29 BUN 14 Creatinine 0.53 L Estimated GFR > 60.0 BUN/Creatinine Ratio 26.4 H Glucose 139 H Hemoglobin A1c Calcium 9.3 Magnesium 2.0 Total Bilirubin 0.4 Conjugated Bilirubin 0.0 Unconjugated Bilirubin 0.3 AST 39 ALT 38 Alkaline Phosphatase 74 C-Reactive Protein Total Protein 7.7 Albumin 4.0 Globulin 3.7 Albumin/Globulin Ratio 1.1 Triglycerides Cholesterol LDL Cholesterol, Calc HDL Cholesterol Procalcitonin 0.05 SARS-CoV-2 (PCR) 04/29/20 04/30/20 12:35 05:30 WBC RBC Hgb Hct MCV MCH MCHC RDW Plt Count Neut % (Auto) Lymph % (Auto) Hitchcock % (Auto) Eos % (Auto) Baso % (Auto) Neut # (Auto) Lymph # (Auto) Hitchcock # (Auto) Eos # (Auto) Baso # (Auto) ESR PT INR APTT Sodium Potassium Chloride Carbon Dioxide BUN Creatinine Estimated GFR BUN/Creatinine Ratio Glucose Hemoglobin A1c Calcium Magnesium Total Bilirubin Conjugated Bilirubin Unconjugated Bilirubin AST ALT Alkaline Phosphatase C-Reactive Protein 1.6 H Total Protein Albumin Globulin Albumin/Globulin Ratio Triglycerides 117 Cholesterol 126 L LDL Cholesterol, Calc 65 HDL Cholesterol 38 L Procalcitonin SARS-CoV-2 (PCR) [facility] Medical History Chronic pain Depression Friedreich ataxia Osteomyelitis Osteoporosis Type 2 diabetes mellitus Surgical History No pertinent past surgical history Social History household members: family Smoking Status: Former smoker Assessment & Plan Assessment & Plan narrative: Patient awaiting MRI. Results of the MRI will determine next step in medical decision making.
[2020-04-30] MEDS: DULOXETINE 30 MG CAPSULE PO (09:53)
[2020-04-30] MEDS: INSULIN GLARGINE 100 UNIT/ML 3ML PEN 32 UNIT SUBCUT (09:55)
[2020-04-30] MEDS: diazePAM 2 MG TABLET PO (10:05)
--- NOTE | 2020-04-30 10:55 | PC.NURSE ---
Addendum entered by Minda Bass R.N. 04/30/20 15:14: Patient resting with eyes closed, has been hovering 89%-90% on room air. Patient placed on 1L, up to 97% will continue to monitor and titrate. LR infusing at 42cc/hr. ABX hung. Addendum entered by Minda Bass R.N. 04/30/20 14:39: Patient returned from the OR. A/O x 4. Patient c/o pain in his back 06/14. Continuous pulse ox on, patient resting with eyes closed, RR at 14. Left foot is wrapped, patient denies sensation. Pulses equal. Call light in reach. Addendum entered by Minda Bass R.N. 04/30/20 12:20: Patient off tele. [employer] running. Patient transferred to OR via bed. Consent in chart. Addendum entered by Minda Bass R.N. 04/30/20 11:56: Patients CBG 157, 1130 Novolog held per MD. Addendum entered by Minda Bass R.N. 04/30/20 11:53: Late note: Patient's CBG was 158 per CGM at 0930. Morning Novolog held after consulting with MD. Original Note: Patient resting in bed, breathing unlabored on room air. Tele on. Pulses equal bilaterally. Patient saline locked at this time. Patient denied pain until 0915, Oxy 5mg administered. Bilateral LE are warm, LLE is taunt, edematous, 2+ pitting edema. Patient denies sensation, reports numbness bilaterally. Left 1st met head medial wound is ELIJAH. Valium 2mg given in preparation for MRI, patient has intermittent spasms of bilateral LE. Patient prepared to go to MRI, tele off, CGM removed from LUE for MRI. Patient tolerated transfer.
--- NOTE | 2020-04-30 11:52 | PM.CN ---
History of Present Illness Consult details Date Patient Seen: 04/30/20 Time Patient Seen: 11:52 Chief complaint: Diabetic foot ulcer Reason for consult: Diabetic foot ulcer, left, osteomyelitis Requesting provider: Wendi Ramos Narrative: The patient is a 59-year-old male with a history of Friedreich's ataxia and diabetes type 2 that was admitted to [facility] from the ER for left foot ulceration suspected osteomyelitis. Hemoglobin A1c is 7.6. He has had Peter's a task axial for a long time he is nonambulatory he uses a motorized chair. 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 He endorses worsening wound since the mid winter over his left foot around the 1st MTP joint. He has home health care nurses that have been doing some dressing changes on it. He has not been able to do the changes or cleaning himself in a couple weeks. Mother are some notes back as far as November 2019 this adjust the wound may have started then. He has been on some courses of oral antibiotics. He has not had any IV antibiotics were seen infectious disease or formal wound care. The ulceration was noted to look worse and he was advised to present [facility] ER. He has been admitted to the medicine service. He does not have a leukocytosis. His hemoglobin levels are normal. His creatinine is normal. X-ray demonstrated possible bone involvement and he has a full-thickness ulceration. MRI demonstrated increased uptake in the 1st metatarsal head and medial sesamoid suspicious for osteomyelitis. No abscesses were found. Meds Home Medications and Allergies Home Medications Medication Instructions Recorded Confirmed Type cephalexin 500 mg PO QID 04/29/20 04/29/20 History duloxetine 30 mg PO QAM 04/29/20 04/29/20 History insulin aspart U-100 [Novolog See Rx Instructions .ROUTE .COMPLEX 04/29/20 04/29/20 History Flexpen U-100 Insulin] insulin glargine [Basaglar KwikPen 32 unit SUBCUT AC 04/29/20 04/29/20 History U-100 Insulin] metformin 1,000 mg DIRECTED 04/29/20 04/29/20 History oxycodone 5 mg TID 04/29/20 04/29/20 History pravastatin 20 mg PO BEDTIME 04/29/20 04/29/20 History Allergies Allergy/AdvReac Type Severity Reaction Status Date / Time acetaminophen AdvReac Severe Confusion Verified 08/11/19 15:54 Review of Systems Review of Systems Narrative: Significant for Peter's ataxia, nonambulatory, stocking-glove neuropathy Exam Vital Signs (past 8 hours): - 04/30/20 07:35 04/30/20 08:00 Temperature 97.9 F Pulse Rate 73 Respiratory Rate 30 H Blood Pressure 131/79 Pulse Oximetry 94 98 Oxygen Delivery Method Room Air Oxygen Flow Rate 0 Narrative Exam Narrative: General exam alert oriented male no acute acute distress. He is lying in bed. He has a lift in uses his upper body to reposition. Lungs clear to auscultation bilaterally Heart regular rate and rhythm HEENT exam normocephalic atraumatic Low bilateral lower extremities have atrophy. On the left side there is a open wound approximately 2 x 2 cm right over the medial aspect of the 1st MTP joint metatarsal head. This is full thickness. There was fibrinous exudate and mild erythema. There is no fluctuance. No streaking or ascending cellulitis up the leg. Dorsalis pedis pulses easily palpable 2+. The toes are all warm and well perfused with brisk capillary refill. He is able to dorsiflex and plantar flex his ankle but is not able to wiggle his toes. He does state sometimes when he concentrates and looks at them he can not. He denies any sensation in his feet bilaterally up to the mid calf level due to neuropathy. Objective Imaging MRI foot left: My impression: MRI left foot with and without contrast demonstrates increased uptake 1st metatarsal and medial sesamoid. Possible small superficial abscess and no deep abscesses noted. Labs Result Diagrams: 04/29/20 12:35 04/29/20 12:35 Labs: Laboratory Results - last 24 hr 04/29/20 04/29/20 04/29/20 11:57 12:35 12:35 WBC 9.0 RBC 4.15 L Hgb 13.2 L Hct 38.8 L MCV 93.4 MCH 31.8 MCHC 34.0 RDW 13.7 Plt Count 298 Neut % (Auto) 60.1 Lymph % (Auto) 28.2 [place] % (Auto) 9.8 Eos % (Auto) 1.3 L Baso % (Auto) 0.6 Neut # (Auto) 5400 Lymph # (Auto) 2500 [place] # (Auto) 900 Eos # (Auto) 100 Baso # (Auto) 100 ESR PT INR APTT Sodium Potassium Chloride Carbon Dioxide BUN Creatinine Estimated GFR BUN/Creatinine Ratio Glucose Hemoglobin A1c 7.6 H Calcium Magnesium Total Bilirubin Conjugated Bilirubin Unconjugated Bilirubin AST ALT Alkaline Phosphatase C-Reactive Protein Total Protein Albumin Globulin Albumin/Globulin Ratio Triglycerides Cholesterol LDL Cholesterol, Calc HDL Cholesterol Procalcitonin SARS-CoV-2 (PCR) Negative 04/29/20 04/29/20 04/29/20 12:35 12:35 12:35 WBC RBC Hgb Hct MCV MCH MCHC RDW Plt Count Neut % (Auto) Lymph % (Auto) [place] % (Auto) Eos % (Auto) Baso % (Auto) Neut # (Auto) Lymph # (Auto) [place] # (Auto) Eos # (Auto) Baso # (Auto) ESR 69 H PT 11.8 INR 1.0 APTT 39 H Sodium 136 L Potassium 3.9 Chloride 99 Carbon Dioxide 29 BUN 14 Creatinine 0.53 L Estimated GFR > 60.0 BUN/Creatinine Ratio 26.4 H Glucose 139 H Hemoglobin A1c Calcium 9.3 Magnesium 2.0 Total Bilirubin 0.4 Conjugated Bilirubin 0.0 Unconjugated Bilirubin 0.3 AST 39 ALT 38 Alkaline Phosphatase 74 C-Reactive Protein Total Protein 7.7 Albumin 4.0 Globulin 3.7 Albumin/Globulin Ratio 1.1 Triglycerides Cholesterol LDL Cholesterol, Calc HDL Cholesterol Procalcitonin 0.05 SARS-CoV-2 (PCR) 04/29/20 04/30/20 12:35 05:30 WBC RBC Hgb Hct MCV MCH MCHC RDW Plt Count Neut % (Auto) Lymph % (Auto) [place] % (Auto) Eos % (Auto) Baso % (Auto) Neut # (Auto) Lymph # (Auto) [place] # (Auto) Eos # (Auto) Baso # (Auto) ESR PT INR APTT Sodium Potassium Chloride Carbon Dioxide BUN Creatinine Estimated GFR BUN/Creatinine Ratio Glucose Hemoglobin A1c Calcium Magnesium Total Bilirubin Conjugated Bilirubin Unconjugated Bilirubin AST ALT Alkaline Phosphatase C-Reactive Protein 1.6 H Total Protein Albumin Globulin Albumin/Globulin Ratio Triglycerides 117 Cholesterol 126 L LDL Cholesterol, Calc 65 HDL Cholesterol 38 L Procalcitonin SARS-CoV-2 (PCR) Assessment & Plan Assessment and plan (1) Osteomyelitis: Status: Acute (2) Friedreich ataxia: Status: Acute (3) Diabetic foot ulcer: Status: Acute Assessment & Plan narrative: Patient has a left full-thickness diabetic foot ulcer at the level of the 1st metatarsal with bone involvement osteomyelitis. He does not have any ascending abscess. He is not septic this is a chronic ulceration that is worsening however any does have superficial cellulitis. He has been indicated for operative debridement. His pulses are 2+ and a arterial Doppler demonstrates good flow. His CRP is 1.6. MRI demonstrates osteomyelitis and wound is full-thickness down to bone. The indicated for debridement and IV antibiotics with culture specific antibiotics. He is not ambulatory and on discussion he expresses desire for a 1 and done procedure if possible and to be aggressive. I discussed debridement and bone biopsy with secondary wound healing forces a larger excision including metatarsal head excision possible closure as well as antibiotics. He is not ambulatory would be a good candidate for a metatarsal head resection and medial sesamoid resection, Serafin morbidity associated with long-term wound care. We discussed risks for wound healing problems or need for additional procedures up to and including amputation. He expressed a desire to proceed. The risks and benefits of the procedure have been discussed with the patient even opportunity to ask questions. The risks of surgery include but are not limited to infection, malunion, nonunion, persistence of pain, damage to nerves and blood vessels, posttraumatic arthritis, DVT, PE, cardiopulmonary complications and . The patient expressed a thorough understanding of the risks and benefits of surgery and has elected to proceed. Consent was signed. COVID-19 COVID-19 status: Negative Time Spent With Patient Time with patient: less than 15 minutes
--- NOTE | 2020-04-30 13:02 | P.PN_ITS ---
Subjective Subjective Date Patient Seen: 04/30/20 Time Patient Seen: 13:03 Interval history: Marc Reis is a 59 year old male with PMH of Freidrich's ataxia, DM2, chronic pain who initially was referred to the [place] ER over concern for osteomyelitis on 04/28. He was a direct admission for probable osteomyelitis. MRI returned with evidence of osteomyelitis and possible small abscess. Orthopedic surgery plans to take patient to the OR today for further m anagement. He denies fevers or chills, abdominal pain, nausea, vomiting. He denies worsening of his wound overnight, no reported pain other than his chronic back pain which improves with oxycodone therapy. Exam Vital Signs (past 8 hours): - 04/30/20 07:35 04/30/20 08:00 04/30/20 12:00 Temperature 97.9 F 97.9 F Pulse Rate 73 71 Respiratory Rate 30 H 24 Blood Pressure 131/79 125/73 Pulse Oximetry 94 98 97 04/30/20 12:33 Temperature 98.2 F Pulse Rate 69 Respiratory Rate 16 Blood Pressure 116/72 Pulse Oximetry 97 Oxygen Delivery Method Room Air Oxygen Flow Rate 0 Narrative Exam Narrative: GENERAL APPEARANCE: Well developed, well nourished, male in no acute distress. SKIN/nails - bilateral nail fungus, L 1st MTP joint with 2x2cm ulceration to bone. Wound with minimal surrounding erythema, appears quite clean, and no tenderness. HEENT: Normocephalic atraumatic, extraocular muscles are intact, oropharynx is clear and mucous membranes are moist, neck is supple without adenopathy NECK: Supple and symmetric. There was no thyroid enlargement, and no tenderness, or masses were felt. CHEST: Normal AP diameter and normal contour. LUNGS: Auscultation of the lungs revealed no wheezes, rhonchi, or rales. CARDIOVASCULAR: There was a regular rate and rhythm without any murmurs, gall ops, rubs. DP pulses +2 bilaterally. ABDOMEN: Soft and nontender with normal bowel sounds. No ascites was noted. MUSCULOSKELETAL: There was no tenderness or effusions noted. Muscle strength and tone were normal. EXTREMITIES: No clubbing or edema. RLE mildly cold, chronic appearing venous skin changes. NEUROLOGIC: Alert and oriented x 3. Slow speech. Cooperative and stable behavior. Objective Imaging XR foot: Radiologist's impression: IMPRESSION: Soft tissue ulcer is seen at the medial aspect the forefoot with small osseous erosion at the adjacent portion of the 1st proximal phalangeal base and possibly the 1st metatarsal head. Findings are suspicious for osteomyelitis. Correlation with upcoming MRI of the foot is recommended, which is scheduled for later the same day. MRI: Radiologist's impression: IMPRESSION: 1. Soft tissue ulcer at the medial aspect of the forefoot extending to the level of the cortical bone with a small subcutaneous nonenhancing fluid collection that could represent a small superficial abscess. Surrounding soft tissue edema/cellulitis is seen extending into the dorsal forefoot. 2. Osseous edema and enhancement in the adjacent portions of the 1st metatarsal head and 1st proximal phalanx are consistent with osteomyelitis. There is also mild edema and enhancement in the hallux sesamoids. 3. Edema and enhancement within the abductor hallucis muscle is compatible with mild myositis. There is mild tenosynovitis of the distal flexor hallucis longus tendon. 4. Mild edema and fatty infiltration in the intrinsic foot musculature diffusely is most likely related to chronic denervation changes. Labs Result Diagrams: 04/29/20 12:35 04/29/20 12:35 Labs: Laboratory Results - last 24 hr 04/29/20 04/29/20 04/29/20 11:57 12:35 12:35 WBC 9.0 RBC 4.15 L Hgb 13.2 L Hct 38.8 L MCV 93.4 MCH 31.8 MCHC 34.0 RDW 13.7 Plt Count 298 Neut % (Auto) 60.1 Lymph % (Auto) 28.2 [place] % (Auto) 9.8 Eos % (Auto) 1.3 L Baso % (Auto) 0.6 Neut # (Auto) 5400 Lymph # (Auto) 2500 [place] # (Auto) 900 Eos # (Auto) 100 Baso # (Auto) 100 ESR PT INR APTT Sodium Potassium Chloride Carbon Dioxide BUN Creatinine Estimated GFR BUN/Creatinine Ratio Glucose Hemoglobin A1c 7.6 H Calcium Magnesium Total Bilirubin Conjugated Bilirubin Unconjugated Bilirubin AST ALT Alkaline Phosphatase C-Reactive Protein Total Protein Albumin Globulin Albumin/Globulin Ratio Triglycerides Cholesterol LDL Cholesterol, Calc HDL Cholesterol Procalcitonin SARS-CoV-2 (PCR) Negative 04/29/20 04/29/20 04/29/20 12:35 12:35 12:35 WBC RBC Hgb Hct MCV MCH MCHC RDW Plt Count Neut % (Auto) Lymph % (Auto) [place] % (Auto) Eos % (Auto) Baso % (Auto) Neut # (Auto) Lymph # (Auto) [place] # (Auto) Eos # (Auto) Baso # (Auto) ESR 69 H PT 11.8 INR 1.0 APTT 39 H Sodium 136 L Potassium 3.9 Chloride 99 Carbon Dioxide 29 BUN 14 Creatinine 0.53 L Estimated GFR > 60.0 BUN/Creatinine Ratio 26.4 H Glucose 139 H Hemoglobin A1c Calcium 9.3 Magnesium 2.0 Total Bilirubin 0.4 Conjugated Bilirubin 0.0 Unconjugated Bilirubin 0.3 AST 39 ALT 38 Alkaline Phosphatase 74 C-Reactive Protein Total Protein 7.7 Albumin 4.0 Globulin 3.7 Albumin/Globulin Ratio 1.1 Triglycerides Cholesterol LDL Cholesterol, Calc HDL Cholesterol Procalcitonin 0.05 SARS-CoV-2 (PCR) 04/29/20 04/30/20 12:35 05:30 WBC RBC Hgb Hct MCV MCH MCHC RDW Plt Count Neut % (Auto) Lymph % (Auto) [place] % (Auto) Eos % (Auto) Baso % (Auto) Neut # (Auto) Lymph # (Auto) [place] # (Auto) Eos # (Auto) Baso # (Auto) ESR PT INR APTT Sodium Potassium Chloride Carbon Dioxide BUN Creatinine Estimated GFR BUN/Creatinine Ratio Glucose Hemoglobin A1c Calcium Magnesium Total Bilirubin Conjugated Bilirubin Unconjugated Bilirubin AST ALT Alkaline Phosphatase C-Reactive Protein 1.6 H Total Protein Albumin Globulin Albumin/Globulin Ratio Triglycerides 117 Cholesterol 126 L LDL Cholesterol, Calc 65 HDL Cholesterol 38 L Procalcitonin SARS-CoV-2 (PCR) [facility] Medical History Chronic pain Depression Friedreich ataxia Osteomyelitis Osteoporosis Type 2 diabetes mellitus Surgical History No pertinent past surgical history Social History household members: family Smoking Status: Former smoker Assessment & Plan Assessment & Plan narrative: Marc Reis is a 59 year old male with PMH of Freidrich's ataxia, DM2, chronic pain who initially was referred to the [place] ER over concern for osteomyelitis on 04/28. He was a direct admission for probable osteomyelitis. MRI returned with evidence of osteomyelitis and possible small abscess. Orthopedic surgery plans to take patient to the OR today for further management. 1. Acute osteomyelitis and diabetic foot ulcer with corresponding abscess and cellulitis of L foot, present on admission. - XR repeated here showing osseous erosion of the 1st proximal phalangeal base, and possibly 1st metatarsal head. MRI today showing a small soft tissue ulcer with surrounding soft tissue edema and cellulitis, as well as osteomyelitis of the 1st metatarsal head and 1st proximal phalanx, also with possible enhancement in the sesamoids. There is also some mild myositis and tenosynovitis the area. - Appreciate surgical management with orthopedics and Dr. Worley's consultat ion today. Plan is for surgical intervention today. - started antibiotics, cefepime 2g q8 hour for anti-pseudomonal activity, and Vancomycin. Will narrow after surgical biopsies have resulted. - ESR and CRP mildly elevated on admission. - LLE MICHAEL performed today showing no significant stenosis. 2. DM2, chronic - A1c indicated decent control at 7.6%. - continue home 32 U lantus, medium sliding scale 7U TID AC and titrate as needed. 3. Jesus's ataxia, chronic - Patient reports difficulty with swallowing. Cleared for regular diet without restrictions with speech therapy after a mild choking event on the floor. Patient knows his behavioral modifications, which should continue. Has home health at baseline. 4. chronic pain - continue home oxycodone 5 mg as needed. 5. HLD, chronic - continue home pravastatin 20mg 6. Depression, chronic, - continue home duloxetine. Code: Full Dispo: admitted under inpatient status. DVT: hold pending surgical consultation.
--- NOTE | 2020-04-30 13:08 | SUR.OPER ---
Lateral on padded OR bed, head on pillow, gel axillary roll in place, bottom leg bent with gel pad under knee to foot, upper leg straight and supported with pillows. Upper arm supported by pillows and secured over bottom arm to padded arm board. Safety belt at hip, tape over blanket lower legs.
[2020-04-30] MEDS: BUPIVACAINE 0.25% W/ EPI (PF) 10 ML VIAL 20 ML INJ (13:29)
--- NOTE | 2020-04-30 13:46 | P.OP_ITS ---
Operative Date/Time/Diagnoses Date of procedure: 04/30/20 Time of procedure: 13:10 Pre-op diagnosis: 1. Diabetic ulceration left foot with bone involvement 2. Osteomyelitis left 1st metatarsal and medial sesamoid 3. George ataxia 4. Neuropathy Post-op diagnosis: same Procedure & Clinicians Procedure: 1. Debridement skin subcutaneous tissue and bone left foot [id number] 2. Excision metatarsal head left great toe CPT code 33389 TA 3. Excision left medial sesamoid CPT code 26341 Same procedure as scheduled: Yes Indications: The patient is a 59-year-old male name is Albert but states that on his many of his records state Marc. with a history of Peter's ataxia and type 2 diabetes last hemoglobin A1c 7.6. With a left medial foot ulceration of at least several months this is a full-thickness ulceration with bone involvement. X-ray and MRI demonstrated likely osteomyelitis of 1st metatarsal head and medial sesamoid. Patient is nonambulatory and uses a motorized chair. Options for treatment were discussed with the patient including debridement bone biopsies wound care and IV antibiotics versus a more extensive excision and atte mpted closure and antibiotics. The patient does not ambulate with his legs he is hoping for a more definitive procedure to facilitated care on the [place] and avoid all along wound healing course. We discussed metatarsal head resection medial sesamoid excision. He understands and agrees with this plan. We discussed risks and benefits of surgery and risks for need for additional procedures further resection and/or amputation wound healing problems wound care IV antibiotics ex cetera. Specific risks were discussed as follows. The risks and benefits of the procedure have been discussed with the patient even opportunity to ask questions. The risks of surgery include but are not limited to infection, malunion, nonunion, persistence of pain, damage to nerves and blood vessels, posttraumatic arthritis, DVT, PE, cardiopulmonary complications and . The patient expressed a thorough understanding of the risks and benefits of surgery and has elected to proceed. Consent was signed. Surgeon: Katelyn Worley Click Yes if Unassisted: Yes Anesthesia Type: General and Local Operative Notes Findings: Full-thickness ulceration measuring approximately 2 x 2 and a 0.5 cm over the medial eminence of the left great toe fibrinous exudate small amount of purulence dorsally. This tracked directly down to the medial eminence of the great toe slight malodor plantarly with exposure of the medial sesamoid which is soft consistent with osteomyelitis. First metatarsal head is resected and sent for pathology and culture. This allowed for decompression of the wound site enough for primary closure. Small shaving was done on the medial eminence of the proximal phalanx to facilitate closure in this area as well. Closure Type: primary Specimen(s): other (Bone for pathology and culture) Estimated Blood Loss (mL): 20 Blood products transfused: none Tourniquet time (min): 14 Procedure in detail: Patient was seen in the preoperative area the site of surgery marked informed consent confirmed. He was brought back to the operating room by the anesthesia team positioned on the operative table. General anesthesia was administered. The left lower extremities prepped and draped in the standard sterile fashion. All bony prominences well padded. A nonsterile ankle tourniquet was placed. Formal time-out procedure was performed confirming the patient's side and site of surgery and administration of antibiotics. This patient was on scheduled IV antibiotics vanc and cefepime and received these. Attention was turned to the left lower extremity there was a 2 x 2.5 cm round full-thickness wound at the level of the 1st metatarsal head. [place] exsanguination was utilized and tourniquet elevated to 250 mm of mercury the stayed in place for 14 minutes. The wound was ellipsed sized and fibrinous eschar removed. This was directly down on the 1st metatarsal head. The 1st metatarsal head was marked out and the TTS saw was used to resect the 1st metatarsal head which was then divided and sent for pathology and culture. Next the medial sesamoid was resected there was a slight malodor around this area but no gross purulence. The medial sesamoid was noted to be soft. This was resected and sent for culture as well. Once this was completed in the wound edges and soft tissues fully debrided sharply the wound was irrigated with copious saline. The tourniquet was then released. Gloves were changed at this point soft tissue releases and mobilization was completed to facilitate wound closure. I did take a little shaving off of the Medial edge of the proximal phalanx to facilitate closure. And this allowed primary closure without undue tension on the skin. Deep closure was completed with 2-0 PDS in the skin a couple 2-0 nylons were used for tension sutures and then 3-0 nylon and 2-0 nylon sutures were placed in standard fashion in the tension sutures removed. The toes were noted to pink up well after tourniquet release. The dressing was placed with Xeroform gauze and a ABD pad and a Amadeo wrap. Patient was awoken from anesthesia and taken to recovery room in good condition. There no immediate complications from this procedure. All counts were correct. Complications: none Post-operative Condition: stable Disposition: PACU Plan for aftercare: Nonweightbearing left foot a routine a care may change dressing as needed sutures will stay in place 3-6 weeks depending on healing. Recommend culture specific antibiotics. Keep incision dry.
[2020-04-30] MEDS: LACTATED RINGERS 1,000 ML 42 ML IV (14:47)
--- NOTE | 2020-04-30 15:17 | CM.IDA ---
Initial DCP Assessment Note Pt is a 59 yo male, resident of [place], directly admitted from [facility] [place] for left foot ulceration suspected osteomyelitis, PMH includes Friedreich's ataxia and diabetes type 2. PCP: Rhianna Scanlon Payer: Maureen TORRES Reviewed chart. Attempted assessment this morning, patient was just coming back from MRI and was calling out in pain. Attempted again this afternoon and patient was off the floor , Dr Worley took patient to the OR Pre-op diagnosis: 1. Diabetic ulceration left foot with bone involvement 2. Osteomyelitis left 1st metatarsal and medial sesamoid 3. George ataxia 4. Neuropathy Will plan to follow closely as medical POC unfolds and will attempt assessment tomorrow to gather more thorough background information. JUVENTINO Basurto
[2020-04-30] MEDS: OXYCODONE IR 5 MG TABLET 10 MG PO (16:23)
[2020-04-30 18:18] LABS: Vancomycin Trough 15.6 ug/mL (10-20)
[2020-04-30] MEDS: GABAPENTIN 300 MG CAPSULE PO (21:17)
[2020-04-30] MEDS: PRAVASTATIN 20 MG TABLET PO (21:17)
[2020-04-30] MEDS: ACETAMINOPHEN 325 MG TABLET 650 MG PO (21:17)
[2020-05-01] VITALS (9 sets, daily range): BP systolic 123–150; BP diastolic 75–89; PULSE 79–100; RESP 16–18; TEMP 36.6–37.5; O2SAT 94–97
[2020-05-01] MEDS: VANCOMYCIN 1,000 MG/200 ML PIGGYBACK 200 MG IV ×4 (00:32→17:26)
[2020-05-01] MEDS: OXYCODONE IR 10 MG TABLET PO ×4 (04:16→22:50)
--- NOTE | 2020-05-01 07:00 | PC.NURSE ---
Patient had bloody drainage on bottom of left foot. Reinforced. took oxycodone once my shift.
[2020-05-01] MEDS: CEFEPIME 2 GM in SODIUM CHLORIDE 0.9% 100 ML 200 ML IV ×3 (07:43→22:50)
[2020-05-01 07:50] LABS: Add Manual Diff / Slide Review NO; Basophils Absolute Auto 0 /uL (0-100); Basophils Percent Auto 0.4 % (0-2); Eosinophils Absolute Auto 100 /uL (0-450); Eosinophils Percent Auto 1.2 % (2-4); Hematocrit 36.9 % (41-53); Hemoglobin 12.5 g/dL (13.5-17.5); Lymphocytes Absolute Auto 2000 /uL (1100-4500); Lymphocytes Percent Auto 20.4 % (25-40); Mean Corpuscular HGB Conc 33.8 % (30-36); Mean Corpuscular Hemoglobin 31.7 PG (26-34); Mean Corpuscular Volume 93.7 fL (80-100); Monocytes Absolute Auto 1200 /uL (0-900); Monocytes Percent Auto 12.3 % (3-14); Neutrophils Absolute Auto 6500 /uL (1500-7000); Neutrophils Percent Auto 65.7 % (50-75); Platelet Count 263 X10^3/uL (150-400); Red Blood Cell Count 3.94 X10^6/uL (4.5-5.9); Red Cell Distribution Width 13.5 % (11.6-14.8); White Blood Cell Count 9.8 X10^3/uL (4.5-11.0)
[2020-05-01 08:00] LABS: BUN Creatinine Ratio 16.9 (6-22); Blood Urea Nitrogen 11 mg/dL (9-20); Calcium 9.1 mg/dL (8.4-10.2); Carbon Dioxide 27 mmol/L (22-32); Chloride 100 mmol/L (98-107); Estimated Glomerular Filt Rate > 60.0 mL/min (>60); Glucose 166 mg/dL (80-110); HEMOLYSIS < 15 (0-50); Potassium 4.2 mmol/L (3.4-5.1); Sodium 135 mmol/L (137-145)
[2020-05-01] MEDS: INSULIN ASPART 100 UNIT/ML INSULN PEN 6 UNIT SUBCUT ×3 (08:05→17:27)
[2020-05-01] MEDS: INSULIN ASPART 100 UNIT/ML INSULN PEN SUBCUT ×3 (08:06→17:27)
[2020-05-01] MEDS: INSULIN GLARGINE 100 UNIT/ML 3ML PEN 32 UNIT SUBCUT (08:07)
[2020-05-01] MEDS: GABAPENTIN 300 MG CAPSULE PO ×3 (08:07→20:52)
[2020-05-01] MEDS: DULOXETINE 30 MG CAPSULE PO (08:07)
[2020-05-01] MEDS: SODIUM CHLORIDE 0.9% FLUSH 10 ML IV ×2 (08:08→20:53)
--- NOTE | 2020-05-01 11:17 | P.PN_ITS ---
Subjective Subjective Date Patient Seen: 05/01/20 Time Patient Seen: 11:17 Interval history: Patient notes the pain is been moderate to severe. Denies fever or chills. No nausea or vomiting. Exam Vital Signs (past 8 hours): - 05/01/20 04:00 05/01/20 04:20 05/01/20 08:00 Temperature 98.9 F 98 F Pulse Rate 79 82 Respiratory Rate 18 16 Blood Pressure 127/89 129/75 Pulse Oximetry 97 97 94 Oxygen Delivery Method Room Air Oxygen Flow Rate 0 Narrative Exam Narrative: 5-year-old male resting comfortably in bed in no apparent distress. Dressings in place. There is some serosanguineous drainage on the dressing. The dressing on the left foot with reinforce this morning because the some breakthrough drainage. Objective Labs Result Diagrams: 05/01/20 06:42 05/01/20 06:42 Labs: Laboratory Results - last 24 hr 04/30/20 05/01/20 05/01/20 17:45 06:42 06:42 WBC 9.8 RBC 3.94 L Hgb 12.5 L Hct 36.9 L MCV 93.7 MCH 31.7 MCHC 33.8 RDW 13.5 Plt Count 263 Neut % (Auto) 65.7 Lymph % (Auto) 20.4 L [place] % (Auto) 12.3 Eos % (Auto) 1.2 L Baso % (Auto) 0.4 Neut # (Auto) 6500 Lymph # (Auto) 2000 [place] # (Auto) 1200 H Eos # (Auto) 100 Baso # (Auto) 0 Sodium 135 L Potassium 4.2 Chloride 100 Carbon Dioxide 27 BUN 11 Creatinine 0.65 L Estimated GFR > 60.0 BUN/Creatinine Ratio 16.9 Glucose 166 H Calcium 9.1 Magnesium 2.0 Vancomycin Trough 15.6 SOURCE: Foot Lt ENTR: 04/30/20-[address]: Rhianna Scanlon MD, Richard D.O. FAX TO: ORDERED: WOUND Cx and GS COMMENTS: Comment bone 1st metatarsal head left foot Procedure Result Verified Site Gram Stain Final 04/30/20- 1356 No Organism Seen No organisms seen White blood cells Moderate mixed mono and poly WBCs Aerobic Culture for wounds Pending Anaerobic Culture Pending [facility] Medical History Chronic pain Depression Friedreich ataxia Osteomyelitis Osteoporosis Type 2 diabetes mellitus Surgical History No pertinent past surgical history Social History household members: family Smoking Status: Former smoker Assessment & Plan Post-op Postoperative Procedures: Procedures Operation Date: 04/30/20 12:30 Actual Procedures Side Surgeon p I&D 1st metatarsal head resection Left Katelyn Worley MD Postop day 1 status post debridement skin subcutaneous tissue and bone left foot, excision metatarsal head, left great toe, excision left medial sesamoid. Nonweightbearing left foot a routine a care may change dressing as needed sutures will stay in place 3-6 weeks depending on healing. Recommend culture s pecific antibiotics. Keep incision dry.
--- NOTE | 2020-05-01 11:51 | P.PN_ITS ---
Subjective Subjective Date Patient Seen: 05/01/20 Time Patient Seen: 08:51 Interval history: Today he is POD #1, from surgery. He has mild to moderate pain that is only mildly controlled with pain medications. He has no other complaints, no fevers/chills. Had bleeding last night and needed dressing change. Exam Vital Signs (past 8 hours): - 05/01/20 04:00 05/01/20 04:20 05/01/20 08:00 Temperature 98.9 F 98 F Pulse Rate 79 82 Respiratory Rate 18 16 Blood Pressure 127/89 129/75 Pulse Oximetry 97 97 94 Oxygen Delivery Method Room Air Oxygen Flow Rate 0 Narrative Exam Narrative: GENERAL APPEARANCE: male in no acute distress. HEENT: Normocephalic atraumatic, extraocular muscles are intact, oropharynx is clear and mucous membranes are moist NECK: Supple and symmetric. No JVD, and no tenderness, or masses were felt. LUNGS: Auscultation of the lungs revealed no wheezes, rhonchi, or rales. CARDIOVASCULAR: There was a regular rate and rhythm without any murmurs, gallops, rubs. DP pulses +2 bilaterally. ABDOMEN: Soft and nontender with normal bowel sounds. No ascites was noted. MUSCULOSKELETAL: There was no tenderness or effusions noted. Muscle strength and tone were normal. EXTREMITIES: No clubbing or edema. RLE mildly cold, chronic appearing venous skin changes, L foot bandaged with slight blood, not soaked through NEUROLOGIC: Alert and oriented x 3. Slow speech. Cooperative and stable behavior. Objective Labs Result Diagrams: 05/01/20 06:42 05/01/20 06:42 Labs: Laboratory Results - last 24 hr 04/30/20 05/01/20 05/01/20 17:45 06:42 06:42 WBC 9.8 RBC 3.94 L Hgb 12.5 L Hct 36.9 L MCV 93.7 MCH 31.7 MCHC 33.8 RDW 13.5 Plt Count 263 Neut % (Auto) 65.7 Lymph % (Auto) 20.4 L [place] % (Auto) 12.3 Eos % (Auto) 1.2 L Baso % (Auto) 0.4 Neut # (Auto) 6500 Lymph # (Auto) 2000 [place] # (Auto) 1200 H Eos # (Auto) 100 Baso # (Auto) 0 Sodium 135 L Potassium 4.2 Chloride 100 Carbon Dioxide 27 BUN 11 Creatinine 0.65 L Estimated GFR > 60.0 BUN/Creatinine Ratio 16.9 Glucose 166 H Calcium 9.1 Magnesium 2.0 Vancomycin Trough 15.6 [facility] Medical History Chronic pain Depression Friedreich ataxia Osteomyelitis Osteoporosis Type 2 diabetes mellitus Surgical History No pertinent past surgical history Social History household members: family Smoking Status: Former smoker Assessment & Plan Assessment & Plan narrative: Mr. Reis is a 59M with PMH DM who comes in with diabetic foot ulcer complicated by cellulitis and osteomyelitis s/p excision of l great metatarsal and left medial sesamoid 1. Acute osteomyelitis and diabetic foot ulcer with corresponding abscess and cellulitis of L foot, present on admission. - s/p excision of L great metatarsal and left medial sesamoid on 04/30. Continue broad abx with vanc/cefepime. Culture data pending from blood and wound in OR, will narrow abx as indicated based on sensitivities - follow up culture data - Appreciate ortho recs - LLE MICHAEL performed today showing no significant stenosis. - pain management with oxycodone 2. DM2, chronic - A1c indicated decent control at 7.6%. - continue home 32 U lantus, medium sliding scale 7U TID AC and titrate as needed. 3. Jesus's ataxia, chronic - Patient reports difficulty with swallowing. Cleared for regular diet without restrictions with speech therapy after a mild choking event on the floor. Patient knows his behavioral modifications, which should continue. Has home health at baseline. 4. chronic pain - continue home oxycodone 5 mg as needed. 5. HLD, chronic - continue home pravastatin 20mg 6. Depression, chronic, - continue home duloxetine. Diet: Diabetic No fluids DVT ppx: held for surgery and still oozing blood from wound, restart possibly tomorrow CODE status: Full
--- NOTE | 2020-05-01 12:48 | SLP.IPNOTE ---
RESILIENT TILE INSTALLER checked in with nurse at 12:25 today. Pt had already eaten lunch. Per nurse, pt tolerated his lunch and had no concerns, reported pt was at his baseline. Pt had one moment of coughing, which pt was able to clear with no issues. No other concerns are noted at this time.
--- NOTE | 2020-05-01 13:30 | PC.NURSE ---
Patient resting in bed, A/O x 4. Patient c/o pain in back, Oxy 10mg given. Patient denies pain in LLE, dressing has moderate serosang drainage. Dressing changed, redressed with xeroform, nonadherent gauze and kerlix. Sutures intact, edges approximated, periwound warm, with erythema. CMS intact. LLE elevated with pillow. Patient tolerating diet and fluids. Intermittent coughing to clear, WNL for patient. Tele removed per MD verbal orders. Patient on room air 95%, lungs CTA. IV patent in L AC, NS @TKO, patient receiving intermittent IV ABX. Voiding in urinal, clear, yellow. Reports last BM 04/29, BT active x 4, patient denies feeling bloated. Call light in reach. Denies needs at this time.
--- NOTE | 2020-05-01 14:44 | CM.DPNOTE ---
DCP Cont Patient POD#1 from I+D and left toe amputation. Culture results pending. Met w/patient, introduced role. Patient lives alone in a MIL house on an elderly couple's property [place], states it is working out very well. Patient describes a very self sufficient life, discusses the anger he has worked through as his once very active and independent lifestyle changed d/t the disease progression of George ataxia, patient currently w/c bound Patient has his small house outfitted w/DME to meet his needs, he uses an electric w/c to get around in/out of his home. Patient pays a friend to help him 4 hrs weekly and has [facility] providing RN (x3 weekly for wound care), PT/OT/MATERIALS DIRECTOR. Patient states he is very close to qualifying for [facility] but I make too much patient has the $ to increase private cg if needed. Patient has access to a shop on this property and can still build items, he often can build items that help him remain self sufficient ie foldable bath chair, grab bars, valdemar systems to aid in self transfers. Patient [place] return home at [place]. He would appreciate [facility] being resumed. Patient expects to take a bus from to [facility], and from [facility] he would call [facility] to take him home. Suggested that a friend pick him up? Patient suggested that this would not be necessary. Discussed possible need for ongoing IV abx, suggested that patient's [facility] might cover home infusion and patient was agreeable to this. Patient eager to return home when medically cleared and has his electric w/c in his hospital room. Plan: DC home per patient's request... when medically stable, w/resumption of [facility] services RN (wound care) PT/OT/MATERIALS DIRECTOR, home infusion (?) dosing and drug unknown at this time. Transport? Following closely for coordination of safe DCP JUVENTINO Basurto
[2020-05-01] MEDS: PRAVASTATIN 20 MG TABLET PO (20:52)
[2020-05-02] VITALS (12 sets, daily range): BP systolic 105–131; BP diastolic 59–91; PULSE 72–84; RESP 18–19; TEMP 36.7–37; O2SAT 93–97
[2020-05-02] MEDS: VANCOMYCIN 1,000 MG/200 ML PIGGYBACK 200 MG IV ×2 (00:29→05:37)
[2020-05-02] MEDS: OXYCODONE IR 10 MG TABLET PO ×4 (05:46→22:11)
[2020-05-02 06:31] LABS: Add Manual Diff / Slide Review NO; Basophils Absolute Auto 100 /uL (0-100); Basophils Percent Auto 0.9 % (0-2); Eosinophils Absolute Auto 200 /uL (0-450); Eosinophils Percent Auto 2.4 % (2-4); Hematocrit 36.7 % (41-53); Hemoglobin 12.1 g/dL (13.5-17.5); Lymphocytes Absolute Auto 2400 /uL (1100-4500); Mean Corpuscular HGB Conc 33.1 % (30-36); Mean Corpuscular Hemoglobin 31.3 PG (26-34); Mean Corpuscular Volume 94.6 fL (80-100); Monocytes Absolute Auto 1200 /uL (0-900); Monocytes Percent Auto 12.1 % (3-14); Neutrophils Absolute Auto 5800 /uL (1500-7000); Neutrophils Percent Auto 59.6 % (50-75); Platelet Count 255 X10^3/uL (150-400); Red Blood Cell Count 3.88 X10^6/uL (4.5-5.9); Red Cell Distribution Width 13.3 % (11.6-14.8); White Blood Cell Count 9.6 X10^3/uL (4.5-11.0)
[2020-05-02 06:40] LABS: BUN Creatinine Ratio 20.8 (6-22); Blood Urea Nitrogen 15 mg/dL (9-20); Calcium 8.7 mg/dL (8.4-10.2); Carbon Dioxide 27 mmol/L (22-32); Chloride 103 mmol/L (98-107); Estimated Glomerular Filt Rate > 60.0 mL/min (>60); Glucose 181 mg/dL (80-110); HEMOLYSIS < 15 (0-50); Potassium 4.5 mmol/L (3.4-5.1); Sodium 135 mmol/L (137-145)
[2020-05-02] MEDS: polyethylene glycoL 3350 17 GM POWD.PACK PO (07:01)
[2020-05-02] MEDS: BISACODYL 5 MG TABLET 10 MG PO (07:54)
[2020-05-02] MEDS: CEFEPIME 2 GM in SODIUM CHLORIDE 0.9% 100 ML 200 ML IV ×3 (07:54→22:12)
[2020-05-02] MEDS: INSULIN ASPART 100 UNIT/ML INSULN PEN 6 UNIT SUBCUT ×3 (07:56→17:21)
[2020-05-02] MEDS: INSULIN ASPART 100 UNIT/ML INSULN PEN SUBCUT ×3 (07:57→20:50)
[2020-05-02] MEDS: DULOXETINE 30 MG CAPSULE PO (08:02)
[2020-05-02] MEDS: DOCUSATE 100 MG CAPSULE 200 MG PO ×2 (08:02→20:47)
[2020-05-02] MEDS: GABAPENTIN 300 MG CAPSULE PO ×3 (08:02→20:48)
[2020-05-02] MEDS: INSULIN GLARGINE 100 UNIT/ML 3ML PEN 32 UNIT SUBCUT (08:03)
[2020-05-02] MEDS: SODIUM CHLORIDE 0.9% FLUSH 10 ML IV ×2 (08:04→20:49)
--- NOTE | 2020-05-02 09:21 | PM.PN.1 ---
Subjective Subjective Date Patient Seen: 05/02/20 Time Patient Seen: 09:21 Interval history: Patient was experiencing some sharp pain in the left foot yesterday, no longer present today. Overall comfortable, some low back pain from being in bed. Exam Vital Signs (past 8 hours): - 05/02/20 04:00 05/02/20 05:43 05/02/20 09:00 Temperature 98.6 F 98.5 F Pulse Rate 78 73 Respiratory Rate 18 18 Blood Pressure 121/59 L 127/91 H Pulse Oximetry 93 93 97 Oxygen Delivery Method Room Air Oxygen Flow Rate 0 Narrative Exam Narrative: 59-year-old male resting comfortably in bed in no apparent distress. Dressings in place. There is some small serosanguineous drainage on the dressing. Objective Labs Result Diagrams: 05/02/20 06:20 05/02/20 06:20 Labs: Laboratory Results - last 24 hr 05/02/20 05/02/20 06:20 06:20 WBC 9.6 RBC 3.88 L Hgb 12.1 L Hct 36.7 L MCV 94.6 MCH 31.3 MCHC 33.1 RDW 13.3 Plt Count 255 Neut % (Auto) 59.6 Lymph % (Auto) 25.0 [place] % (Auto) 12.1 Eos % (Auto) 2.4 Baso % (Auto) 0.9 Neut # (Auto) 5800 Lymph # (Auto) 2400 [place] # (Auto) 1200 H Eos # (Auto) 200 Baso # (Auto) 100 Sodium 135 L Potassium 4.5 Chloride 103 Carbon Dioxide 27 BUN 15 Creatinine 0.72 Estimated GFR > 60.0 BUN/Creatinine Ratio 20.8 Glucose 181 H Calcium 8.7 Magnesium 2.0 PFSH Medical History Chronic pain Depression Friedreich ataxia Osteomyelitis Osteoporosis Type 2 diabetes mellitus Surgical History No pertinent past surgical history Social History household members: family Smoking Status: Former smoker Assessment & Plan Assessment & Plan narrative: Patient is post-op day 2 status post debridement of skin, subcutaneous tissue, and bone left foot, excision metatarsal head, left great toe, excision left medial sesamoid. Nonweightbearing left foot a routine a care may change dressing as needed sutures will stay in place 3-6 weeks depending on healing. Keep incision dry. - Intra-op culture Pseudomonas - Cefepime abx - NWB LLE - Dressing changes as needed Time Spent With Patient Time with patient: less than 15 minutes
--- NOTE | 2020-05-02 14:07 | P.PN_ITS ---
Subjective Subjective Date Patient Seen: 05/02/20 Time Patient Seen: 09:07 Interval history: Today he has no new complaints. The pain in his foot is better controlled. He prefers to DC home when ready if able Exam Vital Signs (past 8 hours): - 05/02/20 08:00 05/02/20 09:00 05/02/20 13:00 Temperature 98.5 F 98.6 F Pulse Rate 73 80 Respiratory Rate 18 18 Blood Pressure 127/91 H 130/66 Pulse Oximetry 97 97 96 Oxygen Delivery Method Room Air Oxygen Flow Rate 0 Narrative Exam Narrative: GENERAL APPEARANCE: male in no acute distress. HEENT: Normocephalic atraumatic, extraocular muscles are intact, oropharynx is clear and mucous membranes are moist NECK: Supple and symmetric. No JVD, and no tenderness, or masses were felt. LUNGS: Auscultation of the lungs revealed no wheezes, rhonchi, or rales. CARDIOVASCULAR: There was a regular rate and rhythm without any murmurs, gallop s, rubs. DP pulses +2 bilaterally. ABDOMEN: Soft and nontender with normal bowel sounds. No ascites was noted. MUSCULOSKELETAL: There was no tenderness or effusions noted. Muscle strength and tone were normal. EXTREMITIES: No clubbing or edema. RLE mildly cold, chronic appearing venous skin changes, L foot bandaged with slight blood, not soaked through NEUROLOGIC: Alert and oriented x 3. Slow speech. Cooperative and stable behavior. Objective Labs Result Diagrams: 05/02/20 06:20 05/02/20 06:20 Labs: Laboratory Results - last 24 hr 05/02/20 05/02/20 06:20 06:20 WBC 9.6 RBC 3.88 L Hgb 12.1 L Hct 36.7 L MCV 94.6 MCH 31.3 MCHC 33.1 RDW 13.3 Plt Count 255 Neut % (Auto) 59.6 Lymph % (Auto) 25.0 [place] % (Auto) 12.1 Eos % (Auto) 2.4 Baso % (Auto) 0.9 Neut # (Auto) 5800 Lymph # (Auto) 2400 [place] # (Auto) 1200 H Eos # (Auto) 200 Baso # (Auto) 100 Sodium 135 L Potassium 4.5 Chloride 103 Carbon Dioxide 27 BUN 15 Creatinine 0.72 Estimated GFR > 60.0 BUN/Creatinine Ratio 20.8 Glucose 181 H Calcium 8.7 Magnesium 2.0 PFSH Medical History Chronic pain Depression Friedreich ataxia Osteomyelitis Osteoporosis Type 2 diabetes mellitus Surgical History No pertinent past surgical history Social History household members: family Smoking Status: Former smoker Assessment & Plan Assessment & Plan narrative: 1. Acute osteomyelitis and diabetic foot ulcer with corresponding abscess and cellulitis of L foot, present on admission. - s/p excision of L great metatarsal and left medial sesamoid on 04/30. Continue broad abx with vanc/cefepime. Culture data pending from blood and wound in OR, will narrow abx as indicated based on sensitivities - follow up culture data - Appreciate ortho recs - LLE MICHAEL performed today showing no significant stenosis. - pain management with oxycodone - plan for 1-2 weeks of antibiotics after discussion with ortho, will order PICC. No evidence operatively of remaining necrotic or infected bone 2. DM2, chronic - A1c indicated decent control at 7.6%. - continue home 32 U lantus, medium sliding scale 7U TID AC and titrate as needed. 3. Jesus's ataxia, chronic - Patient reports difficulty with swallowing. Cleared for regular diet without restrictions with speech therapy after a mild choking event on the floor. Patient knows his behavioral modifications, which should continue. Has home health at baseline. 4. chronic pain - continue home oxycodone 5 mg as needed. 5. HLD, chronic - continue home pravastatin 20mg 6. Depression, chronic, - continue home duloxetine. Diet: Diabetic No fluids DVT ppx: held for surgery and still oozing blood from wound, restart possibly tomorrow Dispo: DC SNF vs home with home health CODE status: Full
--- NOTE | 2020-05-02 16:04 | CM.DANOTE ---
DCP/Assessment: Reviewed chart. Patient is a 59yr male with diabetic foot ulcer. PCP listed is Dr. Scanlon. Primary payor is [employer] [facility]. Per provider in AM rounds it is anticipated that patient will need IV abx at time of d/c. RIVET TAPPING MACHINE OPERATOR met with patient explained role. Patient reports that he prefers to d/c home with IV abx and HH. However, patient in agreement to local SNF ([facility]) if cost of IV antibiotics (copay) too high? Home health has been initiated with [facility]. Patient w/c bound at baseline and uses public transportation. Patient currently reports that he resides alone on [facility] [address] [facility]. Patient indicates that he does have friends that can assist him if needed. At this time unclear on IV abx that patient will need? Cultures pending. P: SNF vs. home with home health for IV abx. [facility] already initiated. JUVENTINO Montenegro Discharge Planning/Care Management CM Discharge Assessment Start: 05/02/20 15:59 Freq: Status: Active Protocol: Document 05/02/20 15:59 KJS (Rec: 05/02/20 16:04 KJS [id number]) Discharge Planning Assessment Assigned Elementary Substitute Teacher JUVENTINO Montenegro Contact Information Paola Watts (family) ph# [phone] Advance Directives? No History Provided By Patient,Medical Record Prior Living Arrangements House Household Members family Type of transporation used prior to Public Transportation admit Independent with ADL's Uses w/c at baseline (in room) Is patient alert and oriented? Yes Caregiver for Another No SNF/HH Preference [facility] is first choice. Patient prefers to d/c home with IV abx. Has Agency SNF been contacted Yes Whiteboard Updated in Patient Room with Yes name and ext. # of Elementary Substitute Teacher Review Status In Process Next Review Type Continued Stay Review
[2020-05-02] MEDS: PRAVASTATIN 20 MG TABLET PO (20:47)
[2020-05-03] VITALS (10 sets, daily range): BP systolic 118–140; BP diastolic 72–85; PULSE 73–82; RESP 17–19; TEMP 36.5–36.9; O2SAT 93–98
[2020-05-03 05:29] LABS: Add Manual Diff / Slide Review NO; Basophils Absolute Auto 100 /uL (0-100); Basophils Percent Auto 0.8 % (0-2); Eosinophils Absolute Auto 300 /uL (0-450); Eosinophils Percent Auto 3.5 % (2-4); Hematocrit 37.9 % (41-53); Hemoglobin 12.6 g/dL (13.5-17.5); Lymphocytes Absolute Auto 3100 /uL (1100-4500); Lymphocytes Percent Auto 32.8 % (25-40); Mean Corpuscular HGB Conc 33.2 % (30-36); Mean Corpuscular Hemoglobin 31.4 PG (26-34); Mean Corpuscular Volume 94.8 fL (80-100); Monocytes Absolute Auto 1200 /uL (0-900); Monocytes Percent Auto 12.2 % (3-14); Neutrophils Absolute Auto 4800 /uL (1500-7000); Neutrophils Percent Auto 50.7 % (50-75); Platelet Count 286 X10^3/uL (150-400); Red Cell Distribution Width 13.4 % (11.6-14.8); White Blood Cell Count 9.5 X10^3/uL (4.5-11.0)
[2020-05-03 05:40] LABS: BUN Creatinine Ratio 21.6 (6-22); Blood Urea Nitrogen 16 mg/dL (9-20); Calcium 9.2 mg/dL (8.4-10.2); Carbon Dioxide 30 mmol/L (22-32); Chloride 103 mmol/L (98-107); Estimated Glomerular Filt Rate > 60.0 mL/min (>60); Glucose 172 mg/dL (80-110); HEMOLYSIS < 15 (0-50); Magnesium 1.9 mg/dL (1.6-2.3); Potassium 4.4 mmol/L (3.4-5.1); Sodium 136 mmol/L (137-145)
[2020-05-03] MEDS: OXYCODONE IR 10 MG TABLET PO ×4 (07:41→22:37)
[2020-05-03] MEDS: CEFEPIME 2 GM in SODIUM CHLORIDE 0.9% 100 ML 200 ML IV ×3 (07:42→22:33)
[2020-05-03] MEDS: SODIUM CHLORIDE 0.9% 250 ML 21 ML IV (07:53)
[2020-05-03] MEDS: INSULIN ASPART 100 UNIT/ML INSULN PEN 6 UNIT SUBCUT ×3 (08:32→18:04)
[2020-05-03] MEDS: INSULIN ASPART 100 UNIT/ML INSULN PEN SUBCUT ×3 (08:32→18:04)
[2020-05-03] MEDS: INSULIN GLARGINE 100 UNIT/ML 3ML PEN 32 UNIT SUBCUT (08:33)
[2020-05-03] MEDS: DOCUSATE 100 MG CAPSULE 200 MG PO ×2 (08:38→21:38)
[2020-05-03] MEDS: GABAPENTIN 300 MG CAPSULE PO ×3 (08:38→21:38)
[2020-05-03] MEDS: DULOXETINE 30 MG CAPSULE PO (08:38)
--- NOTE | 2020-05-03 12:44 | DI.RAD.S_ITS ---
PROCEDURE: XR CHEST FOR PICC 1V INDICATIONS: verify PICC placement COMPARISON: [facility], CR, XR CHEST 1V, 08/11/2019, 16:24. FINDINGS: PICC was placed by the intravenous therapy team from the right side. Fluoroscopic spot film demonstrates the tip of PICC projecting to the area of mid/distal SVC. Cardiomegaly is noted. Mild blunting of the of the left costophrenic angle. IMPRESSION: Tip of PICC projects to the area of mid/distal SVC. There is blunting of left costophrenic angle suggestive of minimal effusion. Dictated by: Shavonne Ames M.D. on 05/03/2020 at 13:44 Approved by: Shavonne Ames M.D. on 05/03/2020 at 13:45
--- NOTE | 2020-05-03 13:47 | PM.PN.1 ---
Subjective Subjective Date Patient Seen: 05/03/20 Time Patient Seen: 13:47 Interval history: Patient states he is feeling no pain in his left LE. He notes that he feels groggy from his medication, but states that he is currently only experiencing mild back pain which he says his chronic. He reports that he has sensation along the medial aspect of the left foot. Exam Vital Signs (past 8 hours): - 05/03/20 08:00 05/03/20 12:00 Temperature 97.8 F 97.7 F Pulse Rate 76 82 Respiratory Rate 18 18 Blood Pressure 140/77 127/72 Pulse Oximetry 96 98 Oxygen Delivery Method Room Air Oxygen Flow Rate 0 Narrative Exam Narrative: Patient is resting comfortably in bed eating lunch. The left foot is dressed in a gauze bandage and xeroform with mild strike through on the bandage. Granulation tissue appreciated after the bandage was removed. No warmth, erythema, or induration appreciated at the base of the great toe of the left foot. No discharge appreciated. VSS. Const General: cooperative and comfortable Resp Effort & Inspection: normal respiratory effort and able to speak in complete sentences Extrem General: normal exam except as noted Objective Labs Result Diagrams: 05/03/20 05:10 05/03/20 05:10 Labs: Laboratory Results - last 24 hr 05/03/20 05/03/20 05:10 05:10 WBC 9.5 RBC 4.00 L Hgb 12.6 L Hct 37.9 L MCV 94.8 MCH 31.4 MCHC 33.2 RDW 13.4 Plt Count 286 Neut % (Auto) 50.7 Lymph % (Auto) 32.8 [place] % (Auto) 12.2 Eos % (Auto) 3.5 Baso % (Auto) 0.8 Neut # (Auto) 4800 Lymph # (Auto) 3100 [place] # (Auto) 1200 H Eos # (Auto) 300 Baso # (Auto) 100 Sodium 136 L Potassium 4.4 Chloride 103 Carbon Dioxide 30 BUN 16 Creatinine 0.74 Estimated GFR > 60.0 BUN/Creatinine Ratio 21.6 Glucose 172 H Calcium 9.2 Magnesium 1.9 PFSH Medical History Chronic pain Depression Friedreich ataxia Osteomyelitis Osteoporosis Type 2 diabetes mellitus Surgical History No pertinent past surgical history Social History household members: family Smoking Status: Former smoker Assessment & Plan Assessment & Plan narrative: Patient to continue being observed. Wound at the base of the great to of the left foot to have bandages changed as needed if soiled. Patient is hopeful for discharge and feels that he is ready to leave the hospital. Wound is to continue being observed for any signs of infection.
--- NOTE | 2020-05-03 14:18 | CM.DPC ---
DCP/continued: Received notification from Suzan at [facility]. She reports that they can accept patient when medically stable. July reports she will obtain authorization today. PASRR completed. PICC line expected to be placed today. Per Dr. Valdez d/c anticipated for tomorrow 05-05-20. Patient aware and agreeable and provided with [facility] brochure and given copy of Important Message from Medicare. P: Anticipate d/c to [facility], Suzan working on authorization. D/C anticipated tomorrow, please call in AM. JUVENTINO Montenegro
--- NOTE | 2020-05-03 16:41 | CM.DPC ---
DCP CONTINUED: TOWER CONTROL OPERATOR Student met with patient at bedside to inform clarify the plan for D/C to [facility] tomorrow 05/04/20. Patient became agitated and was emphatic he would go home and administer his own IV medications. Education on difference between the two options home infusions with infusion [facility] vs [facility] and the benefits of going to a SNF. Explained there potentially is a moe difference if he is going home with IV antibiotics. He reported he will base his determination on D/C plan around the financial differences. Called and spoke with and faxed [employer] demographics sheet this date requesting information on potential cost of medications if done at home. Pending review and call. Provided patient a copy of an IMM. PLAN: Anticipate D/C from hospital on 04/24/20. Will revisit D/C plans with patient after more information is gathered. [facility] is most prudent given the needs of the patient. JUVENTINO Montenegro MSW Student
--- NOTE | 2020-05-03 18:45 | PM.PN.1 ---
Subjective Subjective Date Patient Seen: 05/03/20 Interval history: Pleasant 59-year-old male lying in bed without complaints. He denies any pain. Exam Vital Signs (past 8 hours): - 05/03/20 12:00 05/03/20 15:40 Temperature 97.7 F 98.4 F Pulse Rate 82 78 Respiratory Rate 18 19 Blood Pressure 127/72 127/76 Pulse Oximetry 98 96 Oxygen Delivery Method Room Air Oxygen Flow Rate 0 Narrative Exam Narrative: Pleasant gentleman resting comfortably without any complaints Lungs: Clear to auscultation Cardiac exam: Regular rate rhythm normal S1-S2 Abdomen: Soft nontender nondistended Extremities: Dressing over left lower extremity Objective Labs Result Diagrams: 05/03/20 05:10 05/03/20 05:10 Labs: Laboratory Results - last 24 hr 05/03/20 05/03/20 05:10 05:10 WBC 9.5 RBC 4.00 L Hgb 12.6 L Hct 37.9 L MCV 94.8 MCH 31.4 MCHC 33.2 RDW 13.4 Plt Count 286 Neut % (Auto) 50.7 Lymph % (Auto) 32.8 [place] % (Auto) 12.2 Eos % (Auto) 3.5 Baso % (Auto) 0.8 Neut # (Auto) 4800 Lymph # (Auto) 3100 [place] # (Auto) 1200 H Eos # (Auto) 300 Baso # (Auto) 100 Sodium 136 L Potassium 4.4 Chloride 103 Carbon Dioxide 30 BUN 16 Creatinine 0.74 Estimated GFR > 60.0 BUN/Creatinine Ratio 21.6 Glucose 172 H Calcium 9.2 Magnesium 1.9 PFSH Medical History Chronic pain Depression Friedreich ataxia Osteomyelitis Osteoporosis Type 2 diabetes mellitus Surgical History No pertinent past surgical history Social History household members: family Smoking Status: Former smoker Assessment & Plan Assessment & Plan narrative: Acute osteomyelitis and diabetic foot ulcer with corresponding abscess and cellulitis of L foot, present on admission. - s/p excision of L great metatarsal and left medial sesamoid on 04/30. Continue broad abx with vanc/cefepime. Culture data pending from blood and wound in OR, will narrow abx as indicated based on sensitivities - follow up culture data - Appreciate ortho recs - LLE MICHAEL performed today showing no significant stenosis. - pain management with oxycodone -patient may require 6 weeks of IV antibiotics, will discuss with Orthopedics. The if margins are not clear would recommend long-term treatment. -patient will need to go to senior care for ongoing antibiotics. Would recommend 2 weeks of cefepime switched to IV quinolone following this. -recommend ID consultation as an outpatient as well. 2. DM2, chronic - A1c indicated decent control at 7.6%. - continue home 32 U lantus, medium sliding scale 7U TID AC and titrate as needed. 3. Jesus's ataxia, chronic - Patient reports difficulty with swallowing. Cleared for regular diet without restrictions with speech therapy after a mild choking event on the floor. Patient knows his behavioral modifications, which should continue. Has home health at baseline. 4. chronic pain - continue home oxycodone 5 mg as needed. 5. HLD, chronic - continue home pravastatin 20mg 6. Depression, chronic, - continue home duloxetine. 7. Patient to transfer to senior care tomorrow
[2020-05-03] MEDS: PRAVASTATIN 20 MG TABLET PO (21:42)
[2020-05-03] MEDS: SODIUM CHLORIDE 0.9% FLUSH 10 ML IV (21:44)
[2020-05-04 03:00] VITALS: O2SAT 97
[2020-05-04 06:27] VITALS: BP 125/79; PULSE 92; RESP 18; TEMP 37.2; O2SAT 97
[2020-05-04] MEDS: CEFEPIME 2 GM in SODIUM CHLORIDE 0.9% 100 ML 200 ML IV (06:27)
[2020-05-04 08:00] VITALS: BP 139/71; RESP 20; TEMP 36.6; O2SAT 95
[2020-05-04] MEDS: GABAPENTIN 300 MG CAPSULE PO (08:12)
[2020-05-04] MEDS: DOCUSATE 100 MG CAPSULE 200 MG PO (08:12)
[2020-05-04] MEDS: OXYCODONE IR 10 MG TABLET PO (08:12)
[2020-05-04] MEDS: DULOXETINE 30 MG CAPSULE PO (08:13)
[2020-05-04] MEDS: INSULIN ASPART 100 UNIT/ML INSULN PEN 6 UNIT SUBCUT ×2 (08:13→11:40)
[2020-05-04] MEDS: INSULIN ASPART 100 UNIT/ML INSULN PEN SUBCUT ×2 (08:14→11:40)
[2020-05-04] MEDS: INSULIN GLARGINE 100 UNIT/ML 3ML PEN 32 UNIT SUBCUT (08:14)
[2020-05-04 09:52] VITALS: O2SAT 95
--- NOTE | 2020-05-04 10:49 | PM.DS.1 ---
History of Present Illness History of Present Illness Date Patient Seen: 05/04/20 Chief complaint: Diabetic foot ulcer Narrative: Marc Reis is a 59 year old male with PMH of Freidrich's ataxia, DM2, chronic pain who initially was referred to the [place] ER over concern for osteomyelitis on 04/28. He was accepted for direct admission yesterday, but did not arrive at until this morning. Patient states he has been dealing with this chronic wound on his left foot for approximately 3-4 weeks. It started off a bit smaller and has been slowly increasing in size. He had a debridement in [place], but his wound has continued to grow. He had been on cephalexin for outpatient treatment without improvement over the prior 4 days. He has no sensation in his feet due to both his diabetes and ataxia. He is in a wheelchair at baseline and has home health whom has been doing dressing changes 3x per week he says. He denies any systemic symptoms including fever, chills, nausea, vomiting, abdominal pain. He denies any lower extremity pain but has no sensation, and has not had sensation for many many years. He also has been seeing a speech therapist recently for choking with swallowing recently, thought to be due to his ataxia. Upon admission, patient's vital signs are unremarkable. Laboratory evaluation reveals no leukocytosis with a WBC of 9.0, and otherwise unremarkable CBC. ESR is mildly elevated at 69, report from his ER visit showed an ESR of 76. CRP is mildly elevated at 1.6. Procalcitonin is negative at 0.05. Chemistries revealed a glucose of 139, the remainder hit his chemistries were unremarkable. Reports of imaging from 04/27 state there is early osteomyelitis of his left 1st MTP joint, no imaging is available for review. No cultures were reported to have been taken. Discussed with Dr. Ramos of orthopedic surgery, agrees to consultation, but requests repeat XR and MRI imaging to see the extent of involvement, which has been ordered. Discharge Providers Provider Date of admission: 04/29/20 11:22 Discharge Date: 05/04/20 Primary care physician: Rhianna Scanlon MD Consults: 04/29/20 14:14 Consult to Orthopedic Surgery Routine Comment: Consulting Provider: Wendi Ramos Reason for consultation: osteomyelitis 04/29/20 14:40 Consult to Speech Therapy Evaluate & Treat Comment: Physician Instructions: Evaluate and treat Discharge provider: Sherly Valdez MD Summary Hospital Course Discharge Diagnosis: 1. Osteomyelitis of the left 1st metatarsal and medial sesamoid 2. Debridement of skin subcutaneous tissue and bone on the left foot 3. Excision of the metatarsal head of the left great toe 4. excision of the left medial sesamoid 5. Type 2 diabetes 6. Friedreich's ataxia 7. Chronic pain 8. Hyperlipidemia 9. Depression Hospital Course: Patient was admitted to the hospital for osteomyelitis of the left 1st metatarsal and medial sesamoid. The patient underwent MRI study this demonstrated uptake in the 1st metatarsal head and medial sesamoid bone suspicious for osteomyelitis. There was no evidence of abscess found. The patient was placed on broad-spectrum antibiotics. He was taken to the operating room and had an excision of the metatarsal head of the left great toe as well as the left medial sesamoid bone removed. The patient underwent debridement of the subcutaneous tissue and bone of the left foot. Cultures were obtained. Patient was growing Pseudomonas which was fairly pansensitive. He was switched to cefepime for treatment of his osteomyelitis. The patient had significant pain issues following his surgical procedure. However his pain control appeared to improve. As he will need ongoing antibiotics for a minimum of 2 weeks the patient was transferred to [facility] for IV antibiotics. PICC line was placed. Patient had no significant complications. He was deemed appropriate for transfer to [facility] where he will continue for long-term antibiotics. The patient should follow-up with Dr. Delgado at [facility] infectious disease clinic within 2 weeks to determine duration of antibiotic therapy. Patient has no acute symptoms. He denies any diarrhea. He is deemed appropriate for discharge and arrangements are made for him to be discharged. Status at Discharge Cognitive/behavioral status at discharge: oriented Functional status at discharge: wheelchair bound Overall status at discharge: patient is not back to baseline Time Spent with Patient Time spent: Less than 30 minutes Exam Vital Signs (past 8 hours): - 05/04/20 03:00 05/04/20 06:27 05/04/20 08:00 Temperature 98.9 F 97.9 F Pulse Rate 92 H Respiratory Rate 18 20 Blood Pressure 125/79 139/71 Pulse Oximetry 97 97 95 05/04/20 09:52 Temperature Pulse Rate Respiratory Rate Blood Pressure Pulse Oximetry 95 Oxygen Delivery Method Room Air Oxygen Flow Rate 0 Narrative Exam Narrative: Pleasant gentleman lying in bed in no obvious distress Lungs: Clear to auscultation Cardiac exam: Regular rate and rhythm normal S1-S2 Abdomen: Soft nontender nondistended Lower extremities: Left foot with dressing in place Excoriations of the skin, no edema noted Psychiatric exam: Patient is awake and cooperative, no hallucinations, no delusions. Objective Labs Result Diagrams: 05/03/20 05:10 05/03/20 05:10 [facility] Medical History Chronic pain Depression Friedreich ataxia Osteomyelitis Osteoporosis Type 2 diabetes mellitus Surgical History No pertinent past surgical history Social History household members: family Smoking Status: Former smoker Discharge Assessment & Plan Assessment and Plan Assessment: 1. Osteomyelitis of the left foot 2. And subcutaneous tissue and bone of the left foot 3. Excision of the metatarsal head of the left great toe 4. Excision of the left medial sesamoid 5. Type 2 diabetes complicated by peripheral neuropathy 6. Friedreich's ataxia 7. Hyperlipidemia 8. Depression Plan of Treatment: Transfer to [facility] for ongoing antibiotic therapy Discharge Plan Discharge Plan Patient Disposition: SNF Transfer to: [facility] Consult as needed: Dental, Hearing, Mental health, Podiatry and Vision Discharge orders & Medications Prescriptions: New polyethylene glycol 3350 17 gram Powder In Packet 17 gm PO DAILY PRN (Reason: Constipation) Qty: 30 RF: 0 cefepime 2 gram Recon Soln 2 gm IV Q8H Qty: 37 RF: 0 gabapentin [Neurontin] 300 mg Capsule 300 mg PO TID Qty: 30 RF: 0 oxycodone 5 mg Tablet 5 mg PO Q4HR PRN (Reason: Pain, Moderate (4-6)) Qty: 20 RF: 0 Continued oxycodone 5 mg tablet 5 mg TID RF: 0 insulin aspart U-100 [Novolog Flexpen U-100 Insulin] 100 unit/mL (3 mL) insulin pen See Rx Instructions .ROUTE .COMPLEX RF: 0 duloxetine 30 mg capsule,delayed release(DR/EC) 30 mg PO QAM RF: 0 Basaglar KwikPen U-100 Insulin 100 unit/mL (3 mL) insulin pen 32 unit SUBCUT AC RF: 0 pravastatin 20 mg tablet 20 mg PO BEDTIME RF: 0 metformin 1,000 mg tablet 1,000 mg DIRECTED RF: 0 Discontinued cephalexin 500 mg capsule 500 mg PO QID RF: 0 Follow up/Referrals: Rhianna Scanlon MD [Primary Care Provider] - Discharge Health Status Care Plan Goals: Patient needs follow up appointment with Dr. Worley in 3 weeks. Patient needs an appointment with Dr. Macias or ( Infectious Diseases MD) at [facility] in 2 weeks Patient should get weekly labs to include, cbc, cmp, CRP Needs follow up of Pathology results to determine duration of antibiotic therapy. Multidrug resistant organism: No MDRO Diet/Activity/Treatments Diet: Carb-consistent/Diabetic and Low-sodium Liquid consistency: Normal/Thin Food texture: Regular Skin/Wound/Dressing Care Report to your healthcare provider any signs of infection, such as:: chills, fever Other wound treatment: sutures to remain in place for 3 weeks. dressing changes as needed,keep incision dry. follow up with Dr. Crooks regarding wound issues [facility] Reason for rehabilitation: Post-operative therapy Rehab type: Physical therapy and Occupational therapy Restrictions to mobility: non weight bearing of the Left lower extremity Discharge Data Primary Care Provider: Rhianna Scanlon
[2020-05-04 11:02] LABS: COVID19 -Nasal RAPID Negative (Negative)
--- NOTE | 2020-05-04 11:23 | CM.DPC ---
DCP Discharge SNF Per MD, pt is medically stable to d/c today with initially 2 weeks IV-Abx cephapine while awaiting return pathology report to determine if longer IV-Abx needed past 2 weeks. SW spoke to [facility] and they were able to run pt's insurance coverage and he would have a 20% copay which would be a little more than $1000 a week and then would need to have RN or [facility] RN work with him as well. SW spoke to Suzan at [facility] and she was able to obtain insurance auth for SNF for pt and can accept him today around 1200 but would need his 1500 next dose to come with as they may not be able to fill the med in time for his next dose. SW spoke to Pharmacy and they can prepare the dose to follow pt to SNF for administering. SW met bedside with pt and explained role and answered pt's many questions regarding SNF and home infusion. Pt confirms that his preference due to financial cost would be SNF for IV-Abx. Pt inquired about ability to leave the facility for errands and get himself over to [facility] after discharge and SW explained the parameters around needing to go directly from hospital to SNF due to COVID restrictions and liability and insurance auth and pt acknowledges understanding and agreeable with d/c to [facility] today. MARQUIS updated MAIL OPENER, RN, and procurement accountant and MD. RN placed COVID order and completed COVID swab and will get pt's home meds and IV-Abx dose to go with pt to SNF. MD contacting [facility] provider MADDY Cortes to update on POC for pt and pathology report for [facility] to follow up on with ID and Ortho. MARQUIS updated Graham at [facility] and they will follow in case pt needs longer than 2 weeks IV-Abx and decides he wants to do home infusion for remainder of the course of tx. PASRR completed. CC Shyae kindly faxing PASRR, med rec, scripts if needed to [facility] to review when available. Plan: Patient to d/c to [facility] at 1230 via facility van prior to return home with [facility] alone. Sofía Lacey, JUVENTINO
[2020-05-04 12:00] VITALS: BP 121/75; PULSE 79; RESP 18; TEMP 36.6; O2SAT 96
[2020-05-04 13:00] VITALS: O2SAT 96
--- NOTE | 2020-05-04 13:31 | PC.NURSE ---
Day shift note: Patient discharge to [facility] as ordered and arranged by discharge planning. All belongings with patient, including motorized wheelchair, own medications, and belongings. Dressing changed to Left foot prior. Report given to Barbara, receiving nurse at [facility]. Script for narcotics obtained. Single Lumen to JAVI, left in place for IV abx therapy. Cefepime IVPB antibiotic personally delivered to Isabella at [facility] of scheduled administration at 1515. Discharged to [facility] in stable condition via facility transportation.
== END 2020-05-04 13:30 | DRG 629 ==
PROVIDERS: Internal Medicine; Orthopaedic Surgery Foot and Ankle Surgery; Admitting Provider Internal Medicine; PCP Family Medicine; Referring Provider Internal Medicine; Visit Provider Internal Medicine
PROC: 0QBP0ZX Excision of Left Metatarsal, Open Approach, Diagnostic (ICD-10-PCS; principal; 2020-04-30 12:30)
DX: E11.69 Type 2 diabetes mellitus with other specified complication (principal); M86.172 Other acute osteomyelitis, left ankle and foot; G11.11 Friedreich ataxia; L97.526 Non-pressure chronic ulcer of other part of left foot with bone involvement without evidence of necrosis; E11.621 Type 2 diabetes mellitus with foot ulcer; E11.40 Type 2 diabetes mellitus with diabetic neuropathy, unspecified; Z79.891 Long term (current) use of opiate analgesic; Z79.4 Long term (current) use of insulin; Z99.3 Dependence on wheelchair; G89.29 Other chronic pain; E78.5 Hyperlipidemia, unspecified; F32.9 Major depressive disorder, single episode, unspecified; B96.5 Pseudomonas (aeruginosa) (mallei) (pseudomallei) as the cause of diseases classified elsewhere; Z20.822 Contact with and (suspected) exposure to COVID-19
CPT/HCPCS: 36415; 36569; 73630; 73720; 80048; 80061; 80076; 80202; 82962; 83036; 83735; 84145; 85025; 85610; 85651; 85730; 86140; 87040; 87070; 87075; 87077; 87186; 87205; 87635; 92610; 93926; C9803; J0692; J2405; J2704; J3010

== ENCOUNTER → 2020-05-28 08:56 | Outpatient (CLI) | payer MEDICARE, SELFPAY ==
[2020-04-29 12:30] VITALS: BMI 26.0
== END ==
PROVIDERS: PCP Family Medicine; Referring Provider Hospitalist; Visit Provider Hospitalist
DX: I10 Essential (primary) hypertension (principal); R03.0 Elevated blood-pressure reading, without diagnosis of hypertension
CPT/HCPCS: 93005; 93010

== ENCOUNTER 2020-07-09 10:52 | Inpatient (IN) | payer MEDICARE, SELFPAY ==
[2020-07-08 08:13] VITALS: BMI 28.8
[2020-07-09] VITALS (15 sets, daily range): BP systolic 115–167; BP diastolic 59–87; PULSE 79–91; RESP 10–20; TEMP 35.6–37.3; O2SAT 88–99; BMI 26.6
--- NOTE | 2020-07-09 | PATH_ITS ---
[facility] Accession Number: [id number] . 01 Material submitted: . foot - LEFT FOREFOOT . 01 Diagnosis: Left Forefoot, Amputation: Necrosis and actively inflamed chronic ulcer of skin. Viable bone with focal new bone formation and marrow fibrosis; negative for active inflammation or osteonecrosis. Skin, soft tissue and bony margins of resection appear viable. [facility] 07/15/2020 1731 Local . 01 Electronically signed: . Sheila To MD, Pathologist NPI- [id number] . 01 Gross description: . The specimen is received in formalin, labeled left forefoot and consists of a 10.0 x 10.0 x 4.0 cm transmetatarsal amputation with all five digits present. The unguis is cavazos and thickened. The bone margins are smoothly resected. The skin is cavazos and wrinkled. There is a 3.0 x 1.5 cm irregular cavazos-sharma ulcerated lesion located 1.0 cm from the nearest skin and soft tissue margin and 1.5 cm from the nearest bone margin. The lesion is located on the medial aspect of the left hallux. Sectioning reveals cavazos trabeculated bone with no underlying involvement with the lesion. Veterinary Laboratory Technician sections are submitted. . A1: lesion in relation to skin and soft tissue (blue). A2: bone margins, following decalcification. A3: bone margins, following decalcification. A4: lesion in relation to bone, following decalcification. ([id number]) /MRV 07/13/2020 1053 Local . 01 Pathologist provided ICD-10: L97.524, M86.272 . 01 CPT . 355345, 019167, 612007, [id number] Performed at: 01 [facility] [address] [address] [facility], [place], [place] [id number] MD Orlando Childress MD Phone: [phone]
[2020-07-09 11:38] LABS: COVID19 -Nasal RAPID Negative (Negative)
[2020-07-09] MEDS: GABAPENTIN 300 MG CAPSULE PO ×2 (12:16→22:00)
[2020-07-09] MEDS: LACTATED RINGERS 1,000 ML 42 ML IV ×2 (12:25→17:13)
--- NOTE | 2020-07-09 16:04 | PM.PREOP ---
Pre-operative Note COVID-19 COVID-19 status: Negative Interval Note History & Physical reviewed/Exam performed by Physician: Yes Changes to H&P: No
[2020-07-09] MEDS: VANCOMYCIN 1,000 MG/200 ML PIGGYBACK 200 MG IV (16:34)
--- NOTE | 2020-07-09 16:47 | SUR.OPER ---
Supine on padded OR bed, head on pillow, arms secured on padded arm boards at <90 degrees abduction, legs uncrossed, safety belt at thigh, tape over blanket over lower legs. BUMP UNDER LEFT HIP
--- NOTE | 2020-07-09 19:27 | P.OP_ITS ---
Operative Date/Time/Diagnoses Date of procedure: 07/09/20 Time of procedure: 16:00 Pre-op diagnosis: Neuropathic ulcer left foot necrosis of bone, osteomyelitis, Friedreich's ataxia, diabetes, gait instability, equinus contracture left Post-op diagnosis: same Procedure & Clinicians Procedure: 1. Transmetatarsal amputation left foot CPT code 05425 2. Tendo-Achilles lengthening left ankle. CPT code 43915-13 This procedure was performed with a modifier 58 for more extensive procedure for persistent osteomyelitis requiring more proximal amputation During the operation, the services of a physician neurosurgical nurse practitioner were medically indicated and necessary to provide the exposure of the operative site for the surgical procedure and to maintain the limb in a proper position to carry out the operation safely and efficiently. Without a qualified assistant unit forester being present this would extended the operative procedure and made the procedure technically more difficult to perform. Same procedure as scheduled: Yes Indications: Marc Price is a 60-year-old male with multiple medical problems including history of Peter's ataxia who had a medial wound the 1st MTP and metatarsal head resection with several months of wound care. He has persistent infection and nonhealing wound. Half of venous stasis contracted thin skin rigid hammertoes with poor distal perfusion. Been indicated for transmetatarsal amputation to address additional resection and create a balanced amputation site for weight-bearing infection right occasion. The risks and benefits of the procedure have been discussed with the patient even opportunity to ask questions. The risks of surgery include but are not limited to infection, malunion, nonunion, persistence of pain, damage to nerves and blood vessels, posttraumatic arthritis, DVT, PE, cardiopulmonary complications and . The patient expressed a thorough understanding of the risks and benefits of surgery and has elected to proceed. Consent was signed in the office. Surgeon: Katelyn Worley Thread Winder: Yayo Coffey Anesthesia Type: General Operative Notes Findings: 3 x 1 cm ulceration with fibrinous exudate left medial foot and area of metatarsal head resection. Moderate swelling. No gross purulence. Minimal erythema. Closure Type: primary Specimen(s): other (Forefoot amputation sent for pathology. Additional 1st metatarsal bone sent for culture and sensitivity) Applied: other (Splint) Estimated Blood Loss (mL): 20 Tourniquet time (min): 35 Procedure in detail: The patient was seen in the preoperative area the site of surgery was marked informed consent confirmed. He did have an Achilles contracture on the left side as well as a chronic knee flexion contracture of about 20? on the same side. Additionally was noted to have some superficial abrasions along his licona but no proximal signs of infection. He was brought back to the operating room by the anesthesia team. He was positioned supine on the operative table. Bony prominences well padded. An SCD was placed on the contralateral lower extremity. General anesthetic was administered. The left lower extremities prepped and draped in the standard sterile fashion. A formal time-out procedure was performed confirming patient's side and site of surgery antibiotic administered was vancomycin. Transmetatarsal amputation: Attention was turned to the left lower extremity. The dorsal and plantar flaps were marked out with a longer plantar flap. Was marked out medial to go around the existing medial wound with a margin. [place] exsanguination was then completed and the tourniquet was elevated to 250 mmHg. Dorsal and plantar flap incisions were made with the scalpel down to bone once this was completed the metatarsal bone was exposed with the dorsal flap elevated to provide appropriate axis to the 1st through 5th metatarsals next the TTS saw was used to 1st cut the 2nd metatarsal and then cut the 1st 3rd 4th and 5th metatarsals in a balanced parabola. Once these were cut the metatarsals were elevated off the plantar flap preserving as much interosseous the tissue as possible and then the forefoot was removed and sent for pathology. Then the remaining lateral sesamoid was removed. At this point wound was irrigated with 3 L of saline cysto tubing and gloves were changed and instruments were changed. Once the irrigation was completed in clean drapes and gloves and instruments w ere available the bone cuts were then reinspected the TTS saw was used to tailor the parabola for balanced weight-bearing and removing any prominences or excessive plantar bone. The resection from the 1st metatarsal was sent for microbiology as a margin. Plantar flap was then tailored and the flexor tendons were cut and allowed to with retract under tension and the same was done with the extensors. The ends of the bone were then rounded with a rasp C-arm was brought in to confirm appropriate resection and parabola the tourniquet was released and hemostasis was achieved additional irrigation was completed. The Hemovac drain was placed along the metatarsal resection and out the lateral dorsal side of the foot. Then flap closure was completed with 2 O Vicryl 4-0 Monocryl and 3-0 nylon suture in a divide and conquer method. Achilles tendon lengthening: Once this was completed range of motion was checked and the Achilles contracture was then still noted therefore 3 small rafael tendon sections were completed for the lengthening with the distal and proximal cuts in the medial half of the Achilles and the middle cut in the lateral half allowing 10? of dorsiflexion from the preoperative 0 these were then closed with Steri-Strips. Dressings were placed with Xeroform gauze, fluff gauze, Kerlix, Webril, plaster splint, and Brian wrap. Patient was woken from anesthesia and taken to recovery room in good condition. There no immediate complications with this procedure. All counts were correct. Complications: none Post-operative Condition: stable Disposition: PACU Plan for aftercare: The patient will be admitted postoperatively and stool cultures come back then we will range with scattered Infectious Disease Dr. Kailey BEASLEY who has been managing him for discharge antibiotic plan. We are going to try hard for either home with weekly infusions on the [facility]. She will be heel or flatfoot weight-bearing on the splint for transfers. His sutures will stay in place at least 3 or 4 weeks. He has a drain in place this will be removed when it drains less than 30 per shift or at 48 hours whichever comes 1st. While awaiting his cultures to finalize he will be on empiric vancomycin per pharmacy and cefepime 2 g Q [address] Israel.
--- NOTE | 2020-07-09 19:32 | PM.CN ---
History of Present Illness Consult details Date Patient Seen: 07/09/20 Time Patient Seen: 19:38 Chief complaint: TRANSMETATARSAL AMPUTATION LEFT FOOT *OPB* Narrative: Patient is Marc Reis is a 59 year old male with PMH of Freidrich's ataxia, DM2, chronic pain, hyperlipidemia, and depression who underwent a transmetatarsal amputation of the left great toe by Dr. Crooks due to chronic neuropathic ulceration with osteomyelitis. We have been asked to consult on his care regarding his hypertension, hyperlipidemia, diabetes type 2, and depression. The patient is mildly groggy but alert and orientated postoperatively, he denies any foot pain, chest pain, shortness of breath, abdominal pain, fever, body aches, chills, or nausea. Patient is concerned about his spinal pain and that he has difficulty lying in a bed longer than 6 hours and often needs to get up to the chair. Dr. Crooks had advised me that the patient is able to transfer to a chair as needed. Discussed with patient appropriate expectations for pain management and that his hospital stay would likely be for [address] Crooks is waiting for culture results to return. Meds Home Medications and Allergies Home Medications Medication Instructions Recorded Confirmed Type Basaglar KwikPen U-100 Insulin 32 unit SUBCUT DAILY 04/29/20 07/09/20 History duloxetine 30 mg PO QAM 04/29/20 07/09/20 History insulin aspart U-100 [Novolog See Rx Instructions .ROUTE .COMPLEX 04/29/20 07/09/20 History Flexpen U-100 Insulin] metformin 1,000 mg DIRECTED 04/29/20 07/09/20 History oxycodone 5 mg TID 04/29/20 07/08/20 History pravastatin 20 mg PO BEDTIME 04/29/20 07/09/20 History gabapentin [Neurontin] 300 mg PO TID #30 cap 05/04/20 07/09/20 Rx oxycodone 5 mg PO Q4HR PRN #20 tab 05/04/20 07/09/20 Rx Allergies Allergy/AdvReac Type Severity Reaction Status Date / Time acetaminophen AdvReac Severe crawl out Verified 07/09/20 11:43 of my skin lisinopril AdvReac Unknown Cough Verified 07/09/20 11:43 amitriptyline AdvReac Nausea Verified 07/09/20 11:49 Review of Systems Review of Systems ROS: Yes All systems reviewed with the patient and are negative except as otherwise documented Exam Vital Signs (past 8 hours): - 07/09/20 11:55 07/09/20 18:20 07/09/20 18:25 Temperature 98.1 F 99.2 F 98.7 F Pulse Rate 79 87 87 Respiratory Rate 20 11 L 12 Blood Pressure 134/87 116/73 118/82 Pulse Oximetry 99 93 88 L 07/09/20 18:29 07/09/20 18:35 07/09/20 18:40 Temperature 98.7 F 98.0 F 98 F Pulse Rate 82 83 88 Respiratory Rate 11 L 10 L 15 Blood Pressure 124/71 128/68 115/67 Pulse Oximetry 97 96 98 07/09/20 18:56 07/09/20 19:05 Temperature 98 F 98.5 F Pulse Rate 85 91 H Respiratory Rate 14 12 Blood Pressure 127/67 135/75 Pulse Oximetry 96 97 Oxygen Delivery Method Room Air Oxygen Flow Rate 0 Narrative Exam Narrative: General: Patient is a well-developed, well-nourished male in no distress at this time. HEENT: Normocephalic, atraumatic, extraocular muscles intact, oral pharynx is clear and mucous membranes are dry. Neck is supple and symmetric, trachea is midline, no adenopathy, no thyroid enlargement, nontender, no masses palpated. Negative for JVD Chest: Normal AP diameter and contour without kyphoscoliosis, no nasal flaring, retractions, or tachypneic labored Lungs: Auscultation of all lung ly are clear without adventitious sounds, wheezes, rhonchi, or rales. Cardio: S1 & S2 with regular rate and rhythm without murmur, rubs, or gallops, no carotid bruit, no cardiac pulsations present. Abdomen: Soft nontender, negative for organomegaly, or masses. Bowel sounds are present in all 4 quadrants without guarding or rebound, no CVA tenderness. Musculoskeletal: Right leg Muscle strength and tone are equal within normal limits, no deformity, crepitus, effusions, cyanosis, clubbing or edema present. Full range of motion intact radial and pedal pulse (Right) are normal. Left to bandaged in a splint, patient drain is patent and has bloody discharge. Skin: Warm dry and intact without rashes, ulcerations or petechiae. Neuro: Alert and orientated x3, strength is +5/5 in all extremities, sensation to touch intact, no gross deficits noted of cranial nerves. Psych: Patient has a well-kept appearance, appropriate affect, mental status attitude thought context and judgment are appropriate for age. Objective Labs Labs: Laboratory Results - last 24 hr 07/09/20 11:20 SARS-CoV-2 (PCR) Negative Assessment & Plan Assessment & Plan narrative: Marc Reis is a 59 year old male with PMH of Freidrich's ataxia, DM2, chronic pain, hypertension, hyperlipidemia, and depression. Dr. Crooks kindly requested that we consult on the patient in the management of his medical issues while hospitalized S the patient will remain in the hospital until Sunday pending culture results from the surgery. Patient is resting comfortably has no complaints at this time. Will continue patient's home medications and monitor blood sugars, kidney function and electrolytes. 1. Post-OP Transmetatarsal amputation of the left foot 2nd toe due to chronic subacute osteomyelitis from neuropathic ulcer and necrosis of the bone in the setting of insulin-dependent type 2 diabetes, acute, patient admit from the OR per Dr. Crooks. -patient to be followed by Dr. Crooks and Dr. Macias -patient to continue on Maxipime 2 g q.8 hours and vancomycin per pharmacy 2. Insulin-dependent type 2 diabetes with neuropathy, acute on chronic, unknown of present on admission, control unknown - A1C 8.1%, Aviation Project Manager 0.62 elevated from patients normal baseline. Will provide gentle hydration LR at 60 cc/hour patient is most likely dry from surgery.GFR >60, K: 4.0 -patient under diabetes protocol, blood sugar checks ACHS - continue home 32 U lantus, medium sliding scale 7U TID AC and titrate as needed. -Based on patients A1C 8.1% and his reports of low BS, I have increased Lantus dose to 40units total-taking 20 at bedtime and 20 in the a.m. with a.m. fasting blood sugar goal of 120-will titrate pm Lantus dosage by 2 units per night to achieve this goal. This likely will decrease his episodes of hypogylcemia at night, and may reduce or resolve the need for meal insulin. Recommend patient Education regarding insulin changes upon discharge based on results over the next 4 days. 3. Jesus's ataxia, acute on chronic, stable, unknown of present on admission -patient denies difficulty with swallowing 4. chronic pain, acute on chronic, unknown of present on admission - continue home oxycodone 5 mg as needed. -Dr. Crooks has provided 10 oxycodone q.3 hours as needed for postoperative pain. -patient to be monitored for respiratory suppression, respiratory consult completed 5. Hyperlipidemia as a result of insulin-dependent type 2 diabetes, chronic, not present on admission-control unknown - continue home pravastatin 20mg 6. Depression, chronic, unknown if present on admission-controlled -patient denies depression symptoms at this time or suicidal ideation - continue home duloxetine. Code Status: Full Code Surrogate decision maker: Partner Pippa Espinozaon COVID PCR: Negative VTE/DVT prophylaxis: Contraindicated due to surgical procedure
[2020-07-09] MEDS: OXYCODONE IR 5 MG TABLET PO ×2 (19:41→22:00)
--- NOTE | 2020-07-09 19:54 | PC.NURSE ---
Addendum entered by Peri Gary R.N. 07/09/20 23:34: Calling out loudly with spasms and gripping LLE. Administered dilaudid iv as per emar. Able to relax and reposition LLE on pillow in bed. Less spasms and no longer calling out. Addendum entered by Peri Gary R.N. 07/09/20 22:36: 2030: R.T. in to see patient and reports immediately to this technical publications writer pt is holding an end of the hemovac drain in pt's hand. This technical publications writer entered room and pt is holding end of hemovac drain attached to disc in hand. States this was laying on bed about 10 minutes. Located end of drain in pt's wound posterior aspect of LLE inside lizabeth wrap and cotton wrap. Held 4 x 4's over open drain area to control bleeding from insertion site. Dr. Worley in house and was paged to room by park worker supervisor, Pau. Dr. Worley reattaches drain tubing and secures with steristrips and additional lizabeth wrap. Pt was educated on rationale for drain and importance of keeping connections intact. R.T. in to attempt room air trial with pt. Pt c/o spasms and involuntary movement LLE. Dr. Worley aware as pt verbalized this concern to surgeon as well. Administered oxycodone 5 mg x 2 to equal 10 mg as ordered. BG per pt's own check 130. Addendum entered by Peri Gary R.N. 07/09/20 20:13: Pt has implanted device back of left arm and uses own electronic device to check own blood sugar. BG 123 upon arrival to floor. Original Note: Pt to room 216 from PACU awake, alert, conversant. Speech is delayed and thick sounding and STAFF PHARMACIST informs this technical publications writer this is pt's baseline d/t pre-exisiting/underlying illness. Room air 88% so 1L oxygen per nc placed. Pt admits to neuropathy to feet BL and denies pain to left foot surgical site. Hemovac to left foot is compressed with lizabeth wrap dry and intact to site. LLE supported on single pillow. Calf scd in place to RLE. Pt denies nausea and c/o chronic back pain 05/15 for which pt states would take oxycodone @ home. This was given. Pt's swallow is intact. Pt's S.O. arrives @ bedside. Hospitalist Elie in to see patient and consult on pt's diabetes/insulin per Dr. Worley who has seen pt in room. Pt and pt's S.O. were instructed not to give pt any home meds brought from home but these should be taken home by S.O. Pt declines to secure valuables. Pt's own wheelchair in room with backpack. [place] distance pharmacist, Don, calls this technical publications writer and requests stat creatinine be ordered for vancomycin dosing. Pharmacist reports has authority to order this, but is unable to do so from current screen. This was ordered and drawn.
[2020-07-09 20:09] LABS: HEMOLYSIS < 15 (0-50)
[2020-07-09 20:12] LABS: Estimated Glomerular Filt Rate > 60.0 mL/min (>60)
[2020-07-09 20:14] LABS: Hemoglobin A1C% w Est Avg Glu 8.1 % (4.0-6.0)
[2020-07-09] MEDS: DOCUSATE 100 MG CAPSULE PO (22:00)
[2020-07-09] MEDS: PRAVASTATIN 20 MG TABLET PO (22:00)
[2020-07-09] MEDS: INSULIN GLARGINE 100 UNIT/ML 3ML PEN 20 UNIT SUBCUT (22:01)
[2020-07-09] MEDS: LACTATED RINGERS 1,000 ML 60 ML IV (22:01)
[2020-07-09] MEDS: CEFEPIME 2 GM in SODIUM CHLORIDE 0.9% 100 ML 200 ML IV (22:22)
[2020-07-09] MEDS: HYDROMORPHONE 0.5 MG INJ 0.2 MG IV (23:02)
[2020-07-09] MEDS: VANCOMYCIN 1,250 MG/250 ML PIGGYBACK 166.667 MG IV (23:02)
[2020-07-10] VITALS (7 sets, daily range): BP systolic 129–176; BP diastolic 70–95; PULSE 75–98; RESP 16–20; TEMP 36.6–37.6; O2SAT 96–99
[2020-07-10] MEDS: HYDROMORPHONE 0.5 MG INJ 0.2 MG IV ×3 (01:10→08:18)
[2020-07-10] MEDS: OXYCODONE IR 10 MG TABLET PO ×3 (02:56→11:40)
--- NOTE | 2020-07-10 05:12 | PC.NURSE ---
Patient is having difficulty keeping his affected leg from jacknifing upwrds. Patient asked me to use his leather belt and put under his knee and attach to bed to keep knee at angle less painful for him. We discussed safety factors, I am checking frequently. Belt is easy to remove. Will remove when patient is more comfortable and willing to allow removal.
[2020-07-10] MEDS: CEFEPIME 2 GM in SODIUM CHLORIDE 0.9% 100 ML 200 ML IV ×3 (05:36→21:48)
--- NOTE | 2020-07-10 05:49 | PC.NURSE ---
Repositioned patient and made more comfortable. He took the belt off from around his knee.
[2020-07-10] MEDS: VANCOMYCIN 1,250 MG/250 ML PIGGYBACK 166.667 MG IV ×3 (06:25→22:26)
[2020-07-10 06:50] LABS: Albumin 3.5 g/dL (3.5-5.0); BUN Creatinine Ratio 17.4 (6-22); Blood Urea Nitrogen 12 mg/dL (9-20); Calcium 8.5 mg/dL (8.4-10.2); Carbon Dioxide 33 mmol/L (22-32); Chloride 101 mmol/L (98-107); Estimated Glomerular Filt Rate > 60.0 mL/min (>60); Glucose 151 mg/dL (80-110); HEMOLYSIS < 15 (0-50); Phosphorous 3.9 mg/dL (2.3-3.7); Sodium 136 mmol/L (137-145)
[2020-07-10 06:55] LABS: HEMOLYSIS < 15 (0-50); Potassium 4.1 mmol/L (3.4-5.1)
[2020-07-10 06:56] LABS: Alanine Aminotransferase 41 IU/L (<50); Albumin 3.4 g/dL (3.5-5.0); Albumin Globulin Ratio 1.1 (1.0-2.8); Alkaline Phosphatase 58 U/L (38-126); Aspartate Aminotransferase 36 IU/L (17-59); BUN Creatinine Ratio 17.4 (6-22); Bilirubin Total 0.7 mg/dL (0.2-1.3); Blood Urea Nitrogen 12 mg/dL (9-20); Calcium 8.7 mg/dL (8.4-10.2); Carbon Dioxide 30 mmol/L (22-32); Chloride 101 mmol/L (98-107); Estimated Glomerular Filt Rate > 60.0 mL/min (>60); Glucose 149 mg/dL (80-110); Sodium 136 mmol/L (137-145); Total Protein 6.4 g/dL (6.3-8.2)
[2020-07-10] MEDS: HEPARIN 5,000 UNIT/ML VIAL 5000 UNIT SUBCUT ×2 (08:18→20:38)
[2020-07-10] MEDS: DOCUSATE 100 MG CAPSULE PO ×2 (08:19→20:39)
[2020-07-10] MEDS: DULOXETINE 30 MG CAPSULE PO (08:19)
[2020-07-10] MEDS: GABAPENTIN 300 MG CAPSULE PO ×3 (08:19→20:39)
[2020-07-10] MEDS: INSULIN LISPRO 100 UNIT/ML 3ML VIAL SUBCUT ×3 (09:22→20:36)
[2020-07-10] MEDS: INSULIN GLARGINE 100 UNIT/ML 3ML PEN 20 UNIT SUBCUT (09:23)
--- NOTE | 2020-07-10 09:45 | P.PN_ITS ---
Subjective Subjective Date Patient Seen: 07/10/20 Time Patient Seen: 09:45 Interval history: Postop day 1 left foot transmetatarsal amputation. Endorses pain. Which is relieved by medications-oral oxycodone and good relief with a small dose of IV Dilaudid. He also has a chronic spasms from his Friedreich's ataxia. He uses gabapentin for this but said bed spasms for years with off and on any additional anti spasmodic type medication. The spasms jerk rapidly and increase the pain that he has in the operative extremity He is getting empiric cefepime and vancomycin for is previous cultures. We are awaiting final cultures from the margins on his amputation site. Exam Vital Signs (past 8 hours): - 07/10/20 03:23 07/10/20 03:59 07/10/20 07:27 Temperature 97.8 F 98.3 F Pulse Rate 75 76 Respiratory Rate 16 18 Blood Pressure 176/95 H 129/76 137/70 Pulse Oximetry 96 99 07/10/20 09:21 Temperature Pulse Rate 91 H Respiratory Rate 20 Blood Pressure Pulse Oximetry 97 Oxygen Delivery Method Room Air Oxygen Flow Rate 0 Narrative Exam Narrative: Alert oriented male no acute distress sitting in bed. HEENT normocephalic atraumatic Respiratory unlabored on room air Regular rate and rhythm Musculoskeletal examination. Left lower extremity chronic flexion contracture 20?. Lower extremity splint at the amputation stump and intact. Hemovac with some scant drainage. Reportedly was out 30 cc over the last shift. Compartments are soft Objective Labs Result Diagrams: 07/10/20 06:20 07/10/20 06:20 Labs: Laboratory Results - last 24 hr 07/09/20 07/09/20 07/09/20 11:20 19:53 19:53 Sodium Potassium 4.0 Chloride Carbon Dioxide BUN Creatinine Estimated GFR BUN/Creatinine Ratio Glucose Hemoglobin A1c 8.1 H Calcium Phosphorus Total Bilirubin AST ALT Alkaline Phosphatase Total Protein Albumin Globulin Albumin/Globulin Ratio SARS-CoV-2 (PCR) Negative 07/09/20 07/10/20 07/10/20 19:53 06:20 06:20 Sodium 136 L 136 L Potassium 4.0 4.1 Chloride 101 101 Carbon Dioxide 33 H 30 BUN 12 12 Creatinine 0.62 L 0.69 0.69 Estimated GFR > 60.0 > 60.0 > 60.0 BUN/Creatinine Ratio 17.4 17.4 Glucose 151 H 149 H Hemoglobin A1c Calcium 8.5 8.7 Phosphorus 3.9 H Total Bilirubin 0.7 AST 36 ALT 41 Alkaline Phosphatase 58 Total Protein 6.4 Albumin 3.5 3.4 L Globulin 3.0 Albumin/Globulin Ratio 1.1 SARS-CoV-2 (PCR) [facility] Medical History Arthritis Chronic pain Depression Friedreich ataxia HLD (hyperlipidemia) Osteomyelitis Osteoporosis Scoliosis Type 2 diabetes mellitus Venous stasis Surgical History (Updated 07/09/20 @ 19:44 by GIOVANNY Dickson) History of surgery (04/30/20) No pertinent past surgical history Status post transmetatarsal amputation of left foot Social History household members: none Smoking Status: Current every day smoker alcohol intake: current Assessment & Plan Post-op Postoperative Procedures: Procedures Operation Date: 07/09/20 13:30 Actual Procedures Side Surgeon p transmetatarsal amputation foot Left Katelyn Worley MD postop day 1. Will continue to work on pain control with him. Will have him try a oral 2 mg Dilaudid tablets at the time of his next narcotic dose to see if this works better than oxycodone for him additionally I will as baclofen for his spasms. I have talked with the pharmacist we will start with 5 mg 3 times a day for him he responds well with this can increase to 10 mg 3 times a day in about 3 days Awaiting cultures from the margin of his amputation for final antibiotic plan. Anticipate inpatient admission until these are finalized then will go through discharge antibiotic plan with Dr. Kailey Das at [facility] Infectious Disease May do transfers on the left lower extremity Elevate the amputation. As much as possible to decrease swelling and aid with healing Heparin DVT prophylaxis while in the hospital Quality VTE Deep Vein Thrombosis/Pulmonary Embolism Present on Admission: No
--- NOTE | 2020-07-10 09:56 | PT.IPTN ---
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 (07/09/20) Subacute osteomyelitis, left ankle and foot (07/09/20) Unsteadiness on feet (07/09/20) Surgery Performed Operation Date: 07/09/20 13:30 Actual Procedures p transmetatarsal amputation foot(Left) - Katelyn Worley MD Physical Therapy Treatment Note M3 PT-IP Subjective Start: 07/10/20 10:30 Freq: NEEDED Status: Active Protocol: Document 07/10/20 09:56 AB (Rec: 07/10/20 10:36 AB [id number]) Subjective Physical Therapy Visit Type Type Patient Refusal Notes pt refusing PT today. stated that he has a lot of pain on LE and also has chronic back pain and that he prefer to do PT tomorrow. informed pt that PT will check on him again later in the afternoon but refused. stated tomorrow at the same time will be better for him. agreed to give PT PLOF and home set up.
--- NOTE | 2020-07-10 10:40 | PC.NURSE ---
Pt alert and oriented. Expresses concern regarding spasms and pain issues. Dr. Worley and Dr. Herrera are aware of concerns and have been in to see Pt. See new orders. Pt taking b'fast and discussing insulin use. Spoke with Hospitalist regarding coverage. Discussed the plan for the day.
[2020-07-10] MEDS: VANCOMYCIN TROUGH 1 REQUEST MISC (13:57)
[2020-07-10 14:05] LABS: Vancomycin Trough 13.2 ug/mL (10-20)
[2020-07-10] MEDS: OXYCODONE IR 5 MG TABLET PO (14:46)
[2020-07-10] MEDS: BACLOFEN 10 MG TABLET 5 MG PO ×2 (14:50→20:39)
[2020-07-10] MEDS: HYDROMORPHONE 2 MG TABLET PO ×2 (17:10→22:26)
--- NOTE | 2020-07-10 17:36 | PC.NURSE ---
Addendum entered by Peri Gary R.N. 07/10/20 22:09: Pt reports dilaudid is managing pain well. Continues with spasms, but minimal calling out. Ice to left foot and elevation with pillows x 2. Pt is witnessed dozing by staff. Urinal use with brisk urinary output. Pt's own bandaid removed from right licona. Small scabbed abraded area with surrounding erythema noted. Cleansed with normal saline and dried with 4 x 4's. Small allevyn gentle border dressing to cover. Scd replaced. Original Note: Pt awake, alert in bed. States prefers no gown, but keeps blanket tucked around hips. Admits to occasional spasms of LLE 8/10 when these occur and pain 4-5/10 when not spasming. LLE elevated on pillows x 2 as per patient directive stating orthopedic surgeon suggested this during rounds. Brian wrap intact to LLE with hemovac intact and compressed. Pt using urinal in bed. Reports not out of bed today having refused P.T. Scd in place to right leg. Requests stronger pain med to manage pain and po dilaudid was given.
[2020-07-10 18:48] LABS: Vancomycin Peak 27.6 ug/mL (20-40)
[2020-07-10] MEDS: LACTATED RINGERS 1,000 ML 60 ML IV (19:56)
--- NOTE | 2020-07-10 20:00 | PM.PN.1 ---
Subjective Subjective Date Patient Seen: 07/10/20 Time Patient Seen: 08:00 Interval history: Today he feels well. His pain is moderately controlled. He is concerned about his hyperglycemia. Exam Vital Signs (past 8 hours): - 07/10/20 16:37 Temperature 98.5 F Pulse Rate 81 Respiratory Rate 17 Blood Pressure 130/76 Pulse Oximetry 97 Oxygen Delivery Method Room Air Oxygen Flow Rate 0 Narrative Exam Narrative: General: no acute distress Lungs: clear bilaterally Cardio: regular rate and rhythm without murmurs Abdomen: Soft nontender, negative for organomegaly EXT: left leg bandaged Neuro: Alert and orientated x3, strength is +5/5 in all extremities Objective Labs Result Diagrams: 07/10/20 06:20 07/10/20 06:20 Labs: Laboratory Results - last 24 hr 07/09/20 07/09/20 07/09/20 19:53 19:53 19:53 Sodium Potassium 4.0 Chloride Carbon Dioxide BUN Creatinine 0.62 L Estimated GFR > 60.0 BUN/Creatinine Ratio Glucose Hemoglobin A1c 8.1 H Calcium Phosphorus Total Bilirubin AST ALT Alkaline Phosphatase Total Protein Albumin Globulin Albumin/Globulin Ratio Vancomycin Peak Vancomycin Trough 07/10/20 07/10/20 07/10/20 06:20 06:20 13:30 Sodium 136 L 136 L Potassium 4.0 4.1 Chloride 101 101 Carbon Dioxide 33 H 30 BUN 12 12 Creatinine 0.69 0.69 Estimated GFR > 60.0 > 60.0 BUN/Creatinine Ratio 17.4 17.4 Glucose 151 H 149 H Hemoglobin A1c Calcium 8.5 8.7 Phosphorus 3.9 H Total Bilirubin 0.7 AST 36 ALT 41 Alkaline Phosphatase 58 Total Protein 6.4 Albumin 3.5 3.4 L Globulin 3.0 Albumin/Globulin Ratio 1.1 Vancomycin Peak Vancomycin Trough 13.2 07/10/20 16:20 Sodium Potassium Chloride Carbon Dioxide BUN Creatinine Estimated GFR BUN/Creatinine Ratio Glucose Hemoglobin A1c Calcium Phosphorus Total Bilirubin AST ALT Alkaline Phosphatase Total Protein Albumin Globulin Albumin/Globulin Ratio Vancomycin Peak 27.6 Vancomycin Trough [facility] Medical History Arthritis Chronic pain Depression Friedreich ataxia HLD (hyperlipidemia) Osteomyelitis Osteoporosis Scoliosis Type 2 diabetes mellitus Venous stasis Surgical History (Updated 07/09/20 @ 19:44 by GIOVANNY Dickson) History of surgery (04/30/20) No pertinent past surgical history Status post transmetatarsal amputation of left foot Social History household members: none Smoking Status: Current every day smoker alcohol intake: current Assessment & Plan Assessment & Plan narrative: Mr. Reis is a 59M with PMH of Freidrich's ataxia, DM2, chronic pain, hypertension, hyperlipidemia, and depression. Dr. Crooks requested consult on the patient in the management of his medical issues while hospitalized. Patient will remain in the hospital until Sunday pending culture results from the surgery. 1. Post-OP Transmetatarsal amputation of the left foot 2nd toe due to chronic subacute osteomyelitis from neuropathic ulcer and necrosis of the bone in the setting of insulin-dependent type 2 diabetes, acute, patient admit from the OR per Dr. Crooks. -patient to be followed by Dr. Crooks and Dr. Macias -patient to continue on Maxipime 2 g q.8 hours and vancomycin per pharmacy -follow up cultures 2. Insulin-dependent type 2 diabetes with neuropathy, acute on chronic, unknown of present on admission, control unknown - A1C 8.1%, Preschool Principal 0.62 elevated from patients normal baseline. Will provide gentle hydration LR at 60 cc/hour patient is most likely dry from surgery.GFR >60, K: 4.0 -patient under diabetes protocol, blood sugar checks ACHS -Based on patients A1C 8.1% and his reports of low BS, increased Lantus dose to 40units total-taking 20 at bedtime and 20 in the a.m. with a.m. fasting blood sugar goal of 120 -ordered sliding scale insulin 3. Jesus's ataxia, acute on chronic, stable, unknown of present on admission -patient denies difficulty with swallowing 4. chronic pain, acute on chronic, unknown of present on admission - continue home oxycodone 5 mg as needed. -PRN 10 oxycodone q.3 hours as needed for postoperative pain. -patient to be monitored for respiratory suppression, respiratory consult completed 5. Hyperlipidemia as a result of insulin-dependent type 2 diabetes, chronic, not present on admission-control unknown - continue home pravastatin 20mg 6. Depression, chronic, unknown if present on admission-controlled -patient denies depression symptoms at this time or suicidal ideation - continue home duloxetine. Code Status: Full Code Surrogate decision maker: Partner Pippa Destiny BARNARD PCR: Negative VTE/DVT prophylaxis: per surgery Quality VTE Deep Vein Thrombosis/Pulmonary Embolism Present on Admission: No
[2020-07-10] MEDS: PRAVASTATIN 20 MG TABLET PO (20:39)
[2020-07-11] MEDS: OXYCODONE IR 10 MG TABLET PO ×4 (01:19→16:33)
--- NOTE | 2020-07-11 01:42 | PC.NURSE ---
No cap refill available to check on left foot. Amputated toes, and lizabeth wrapped.
[2020-07-11] MEDS: HYDROMORPHONE 2 MG TABLET PO (04:20)
[2020-07-11 04:27] VITALS: BP 154/75; PULSE 83; RESP 16; TEMP 37.2; O2SAT 97
[2020-07-11] MEDS: CEFEPIME 2 GM in SODIUM CHLORIDE 0.9% 100 ML 200 ML IV ×3 (05:29→21:43)
[2020-07-11 05:47] LABS: Hematocrit 36.2 % (41-53); Hemoglobin 12.1 g/dL (13.5-17.5); Mean Corpuscular HGB Conc 33.5 % (30-36); Mean Corpuscular Hemoglobin 29.8 PG (26-34); Mean Corpuscular Volume 88.7 fL (80-100); Platelet Count 216 X10^3/uL (150-400); Red Blood Cell Count 4.08 X10^6/uL (4.5-5.9); Red Cell Distribution Width 15.3 % (11.6-14.8); White Blood Cell Count 7.6 X10^3/uL (4.5-11.0)
[2020-07-11 06:03] LABS: Alanine Aminotransferase 37 IU/L (<50); Albumin 3.6 g/dL (3.5-5.0); Albumin Globulin Ratio 1.1 (1.0-2.8); Alkaline Phosphatase 59 U/L (38-126); Aspartate Aminotransferase 33 IU/L (17-59); BUN Creatinine Ratio 16.4 (6-22); Bilirubin Total 0.7 mg/dL (0.2-1.3); Blood Urea Nitrogen 11 mg/dL (9-20); Calcium 8.8 mg/dL (8.4-10.2); Carbon Dioxide 26 mmol/L (22-32); Chloride 102 mmol/L (98-107); Estimated Glomerular Filt Rate > 60.0 mL/min (>60); Globulin 3.3 g/dL (1.7-4.1); Glucose 159 mg/dL (80-110); HEMOLYSIS < 15 (0-50); Potassium 4.1 mmol/L (3.4-5.1); Sodium 135 mmol/L (137-145); Total Protein 6.9 g/dL (6.3-8.2)
[2020-07-11] MEDS: VANCOMYCIN 1,250 MG/250 ML PIGGYBACK 166.6 MG IV ×3 (06:05→22:51)
[2020-07-11 07:49] VITALS: BP 130/82; PULSE 83; RESP 14; O2SAT 96
[2020-07-11 07:58] VITALS: PULSE 83; RESP 18; O2SAT 97
[2020-07-11] MEDS: HEPARIN 5,000 UNIT/ML VIAL 5000 UNIT SUBCUT ×2 (08:39→21:27)
[2020-07-11] MEDS: GABAPENTIN 300 MG CAPSULE PO ×3 (08:40→21:27)
[2020-07-11] MEDS: DOCUSATE 100 MG CAPSULE PO ×2 (08:40→21:26)
[2020-07-11] MEDS: BACLOFEN 10 MG TABLET 5 MG PO ×3 (08:41→21:27)
[2020-07-11] MEDS: DULOXETINE 30 MG CAPSULE PO (08:42)
[2020-07-11] MEDS: INSULIN GLARGINE 100 UNIT/ML 3ML PEN 20 UNIT SUBCUT ×2 (08:45→21:32)
[2020-07-11] MEDS: INSULIN LISPRO 100 UNIT/ML 3ML VIAL SUBCUT ×3 (08:45→17:31)
--- NOTE | 2020-07-11 10:20 | PT-IP ANOTE ---
Attempted to meet with pt for PT evaluation. Pt curtly refused and insisted he be left alone.
--- NOTE | 2020-07-11 10:42 | PM.PNPO.1 ---
Subjective Subjective Date Patient Seen: 07/11/20 Time Patient Seen: 10:42 Interval history: 60-year-old gentleman who is postop day 2 s/p transmet amputation. Patient is still having issues with pain control mainly due to muscle spasms. Is doing well this morning and has been relatively pain-free for the last few hours but had pain issues overnight. Exam Vital Signs (past 8 hours): - 07/11/20 04:27 07/11/20 07:49 07/11/20 07:58 Temperature 99.0 F Pulse Rate 83 83 83 Respiratory Rate 16 14 18 Blood Pressure 154/75 H 130/82 Pulse Oximetry 97 96 97 Oxygen Delivery Method Room Air Oxygen Flow Rate 0 Narrative Exam Narrative: Patient's dressing is clean and dry. Patient's drain is still intact. Objective Labs Result Diagrams: 07/11/20 05:15 07/11/20 05:15 Labs: Laboratory Results - last 24 hr 07/10/20 07/10/20 07/11/20 13:30 16:20 05:15 WBC RBC Hgb Hct MCV MCH MCHC RDW Plt Count Sodium 135 L Potassium 4.1 Chloride 102 Carbon Dioxide 26 BUN 11 Creatinine 0.67 Estimated GFR > 60.0 BUN/Creatinine Ratio 16.4 Glucose 159 H Calcium 8.8 Total Bilirubin 0.7 AST 33 ALT 37 Alkaline Phosphatase 59 Total Protein 6.9 Albumin 3.6 Globulin 3.3 Albumin/Globulin Ratio 1.1 Vancomycin Peak 27.6 Vancomycin Trough 13.2 07/11/20 05:15 WBC 7.6 RBC 4.08 L Hgb 12.1 L Hct 36.2 L MCV 88.7 MCH 29.8 MCHC 33.5 RDW 15.3 H Plt Count 216 Sodium Potassium Chloride Carbon Dioxide BUN Creatinine Estimated GFR BUN/Creatinine Ratio Glucose Calcium Total Bilirubin AST ALT Alkaline Phosphatase Total Protein Albumin Globulin Albumin/Globulin Ratio Vancomycin Peak Vancomycin Trough PFSH Medical History Arthritis Chronic pain Depression Friedreich ataxia HLD (hyperlipidemia) Osteomyelitis Osteoporosis Scoliosis Type 2 diabetes mellitus Venous stasis Surgical History (Updated 07/09/20 @ 19:44 by GIOVANNY Dickson) History of surgery (04/30/20) No pertinent past surgical history Status post transmetatarsal amputation of left foot Social History household members: none Smoking Status: Current every day smoker alcohol intake: current Assessment & Plan Post-op Postoperative Procedures: Procedures Operation Date: 07/09/20 13:30 Actual Procedures Side Surgeon p transmetatarsal amputation foot Left Katelyn Worley MD Postoperative day: 2 Postoperative status: doing well Postoperative plan narrative: We are awaiting final culture results. Once those are done then patient can be set up with IV antibiotics. Time Spent With Patient Time with patient: less than 15 minutes Quality VTE Deep Vein Thrombosis/Pulmonary Embolism Present on Admission: No
--- NOTE | 2020-07-11 13:57 | PC.NURSE ---
Pt arousable, conflicted throughout the day. Refused PT, was angry with Care Management when they were attempting to future plan. Pt very upset with last SNF placement. Taking a bit less pain meds. controlling his diabetic care well. directing care. Spasms appear to be a bit less as well.
--- NOTE | 2020-07-11 15:40 | PM.PN.1 ---
Subjective Subjective Date Patient Seen: 07/11/20 Time Patient Seen: 08:40 Interval history: Today he states his leg pain is well controlled. He otherwise has no concerns. Exam Vital Signs (past 8 hours): - 07/11/20 07:49 07/11/20 07:58 Pulse Rate 83 83 Respiratory Rate 14 18 Blood Pressure 130/82 Pulse Oximetry 96 97 Oxygen Delivery Method Room Air Oxygen Flow Rate 0 Narrative Exam Narrative: General: no acute distress Lungs: clear bilaterally Cardio: regular rate and rhythm without murmurs Abdomen: Soft nontender, negative for organomegaly EXT: left leg bandaged Neuro: Alert and orientated x3, strength is +5/5 in all extremities Objective Labs Result Diagrams: 07/11/20 05:15 07/11/20 05:15 Labs: Laboratory Results - last 24 hr 07/10/20 07/11/20 07/11/20 16:20 05:15 05:15 WBC 7.6 RBC 4.08 L Hgb 12.1 L Hct 36.2 L MCV 88.7 MCH 29.8 MCHC 33.5 RDW 15.3 H Plt Count 216 Sodium 135 L Potassium 4.1 Chloride 102 Carbon Dioxide 26 BUN 11 Creatinine 0.67 Estimated GFR > 60.0 BUN/Creatinine Ratio 16.4 Glucose 159 H Calcium 8.8 Total Bilirubin 0.7 AST 33 ALT 37 Alkaline Phosphatase 59 Total Protein 6.9 Albumin 3.6 Globulin 3.3 Albumin/Globulin Ratio 1.1 Vancomycin Peak 27.6 PFSH Medical History Arthritis Chronic pain Depression Friedreich ataxia HLD (hyperlipidemia) Osteomyelitis Osteoporosis Scoliosis Type 2 diabetes mellitus Venous stasis Surgical History (Updated 07/09/20 @ 19:44 by GIOVANNY Dickson) History of surgery (04/30/20) No pertinent past surgical history Status post transmetatarsal amputation of left foot Social History household members: none Smoking Status: Current every day smoker alcohol intake: current Assessment & Plan Assessment & Plan narrative: Mr. Reis is a 59M with PMH of Freidrich's ataxia, DM2, chronic pain, hypertension, hyperlipidemia, and depression. Dr. Crooks requested consult on the patient in the management of his medical issues while hospitalized. Patient will remain in the hospital until Sunday pending culture results from the surgery. 1. 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 Crooks. -patient to be followed by Dr. Crooks and Dr. Macias -patient to continue on Maxipime 2 g q.8 hours and vancomycin per pharmacy -follow up cultures 2. Insulin-dependent type 2 diabetes with neuropathy, acute on chronic, unknown of present on admission, control unknown - A1C 8.1%, Hot Knife Cutter 0.62 elevated from patients normal baseline. Will provide gentle hydration LR at 60 cc/hour patient is most likely dry from surgery.GFR >60, K: 4.0 -patient under diabetes protocol, blood sugar checks ACHS -Based on patients A1C 8.1% and his reports of low BS, increased Lantus dose to 40units total-taking 20 at bedtime and 20 in the a.m. with a.m. fasting blood sugar goal of 120 -ordered sliding scale insulin 3. Jesus's ataxia, acute on chronic, stable, unknown of present on admission -patient denies difficulty with swallowing 4. chronic pain, acute on chronic, unknown of present on admission - continue home oxycodone 5 mg as needed. -PRN 10 oxycodone q.3 hours as needed for postoperative pain. -patient to be monitored for respiratory suppression, respiratory consult completed 5. Hyperlipidemia as a result of insulin-dependent type 2 diabetes, chronic, not present on admission-control unknown - continue home pravastatin 20mg 6. Depression, chronic, unknown if present on admission-controlled -patient denies depression symptoms at this time or suicidal ideation - continue home duloxetine. Code Status: Full Code Surrogate decision maker: Partner Pippa Powellsarita BARNARD PCR: Negative VTE/DVT prophylaxis: per surgery Quality VTE Deep Vein Thrombosis/Pulmonary Embolism Present on Admission: No
[2020-07-11 16:25] VITALS: BP 144/59; PULSE 82; RESP 22; TEMP 36.8; O2SAT 98
--- NOTE | 2020-07-11 17:22 | CM.DANOTE ---
DCP ASSESSMENT: Patient is a 60 year-old male admitted for transmetatarsal amputation of left foot. PCP Rhianna Scanlon. Primary payer is [facility]. BLENDER LABORER Student met with patient he was in bed alert and oriented. Nursing was present for part of meeting. Educated patient on role of social work and discharge planning. During this initial visit patient was adamant he will not be returning to a fpc facility if he needs IV antibiotics at time of discharge. He reported he has had a long life and he would ?rather go home and have it be done.? ?I didn?t even want to come in for this? [Referring to leg]. Patient was teary off and on during visit. Due to patient?s presentation and comments. BLENDER LABORER Student asked patient if he was suicidal, he responded he was not but, endorsed he is at his end of his life? Patient seemed frustrated with current medical needs and changes related to his chronic condition(s). During the initial visit also reviewed potential need for IV antibiotic with patient. Patient has previously been on IV therapy at [facility]. Patient prefers either going outpatient or utilizing home IV therapy. Previously patient unable to afford out of pocket expense for previous IV therapy. He did state he would be willing to go to [facility] for daily IV or come to [facility] x1 per week as he feels this is what the DrShante told him, even though he was unsure of which doctor? If outpatient IV therapy decided it could not be more than 1x per day. After consulting with BLENDER LABORER and nursing staff met with patient at bedside a second time to explore statements around end-of-life care due to comments made at initial visit, not wanting to care for self and being okay with life ending. This web content writer also wanted to clarify if it was alright to share his strong thoughts and opinions about leaving the hospital with IV antibiotics and how a fpc facility was not an option in his opinion. He became direct, annoyed, made inappropriate sexual comments and declined for this web content writer to speak with the DrShante about his wishes during morning rounds. Patient expressed a desire for social work to not be a part of discharge planning? Patient made aware CM team will be involved with his D/c plan if IV abx treatment needed. Patient refused PT this date. Per doctor James?s note 07/11/20 it states he anticipates IV antibiotics. ?Postoperative plan narrative: We are awaiting final culture results. Once those are done then patient can be set up with IV antibiotics.? Patient?s discharge plan wishes are to leave hospital and return home with some supportive friends who can visit. He is open to IV antibiotics only if they can be administered at [facility]. Unclear on how realistic [facility] would be given he lives on [address]. [facility] more viable option if they will accept case. PLAN: Discharge plan and recommendations are pending at this time will seek further clarification from Dr. Worley on 07-12-20. Per hospitalist, patient cleared medically from their standpoint. CM Team will continue to follow patient. Anticipate d/c within the next 24-48 hrs. JUVENTINO Montenegro MSW Student Discharge Planning/Care Management CM Discharge Assessment Start: 07/10/20 16:20 Freq: Status: Active Protocol: Document 07/11/20 11:22 AL (Rec: 07/11/20 11:31 AL [id number]) Discharge Planning Assessment Assigned Curb Attendant JUVENTINO Romero Student Contact Information Paola Watts, Family Advance Directives? No History Provided By Patient,Medical Record Prior Living Arrangements House Household Members none Type of transporation used prior to Relies on Others admit Independent with ADL's Yes Is patient alert and oriented? Yes Caregiver for Another No Comment Anticipated patient will need IV antibiotics at time of discharge DME Already Rented / Owned Wheelchair Barriers to Discharge Yes Comment IV antibiotics at time of discharge Discharge Plan Home Community Services IV Therapy Transportation Arrangement Patient friend can provide transporation at time of discharge Whiteboard Updated in Patient Room with Yes name and ext. # of Curb Attendant Review Status In Process Pre-Anesthesia Assessment Start: 07/08/20 08:13 Freq: Status: Active Protocol: Document 07/08/20 08:13 CAB (Rec: 07/08/20 08:35 CAB [id number]) Pre-Anesthesia Assessment Patient Information Reviewed Via Chart Review Comment COVID screen not identified Primary Care Provider Rhianna Scanlon Seen Specialist in Last 12 Months Yes Specialist Seen Orthopedist,Other Comment Infectious disease Primary Language Georgian Preferred Language Georgian Master Machinist Required No Height 175.26 cm Weight 88.451 kg Body Mass Index (BMI) 28.8 Barriers to Learning None Anesthesia Review Requested No alcohol intake current alcohol intake frequency 0-2 drinks per day Smoking Status Former smoker Substance Use Type marijuana Pain Present Pain Reported Musculoskeletal Symptoms Abnormal Gait,Difficulty Walking,Numbness Patient is completely paralyzed or No completely immobile Prosthesis or Orthotic Device Wheelchair Gait/Transferring Impaired Mental Status Oriented to own ability Comment Hx of Friedreichs ataxia, uses a power chair Is patient on oxygen? No Hx Sleep Apnea No Currently Taking a Beta Jann No Anti-Coagulant Therapy No Hx Pacemaker/ICD No Pacemaker Rep Required? No dysphagia Yes: Choking r/t ataxia Urinary Catheter Present No Hx Urinary Self Catheterization No Diabetes Yes HgbA1C 7.6 Date 04/29/20 Presence of External or Internal Medical Yes: Power chair Devices Marital Status Unknown Lives With family Patient Discharge Plan Description Return Home Comment Lives on [facility] Do You Have Any Spiritual Beliefs That No May Affect Your HC Choices? Do You Have Any Cultural Practices That No May Affect Your HC Choices? Emergency Contact Name Katja Carvajal(friend) Emergency Contact Phone Number [phone] Advance Directives? No
--- NOTE | 2020-07-11 17:26 | CM.DANOTE ---
DCP ASSESSMENT: Patient is an 84 year-old male admitted to the hospital with acute respiratory failure with sepsis, acute pneumonia. PCP is Wes Jean. Primary payer is Medicare and self-pay. SOLAR DEVELOPMENT ENGINEER Student met with patient he was sitting in a chair alert and oriented to self and location. Educated patient on role of social work in discharge planning. He reported he has had home health prior to this hospital admission. Patient gave this staff writer permission to talk with both daughter?s Regina and Domenica . Information gathered from Regina lives near [place], Domenica lives in [place] and per Regina she will return to stay with her father at time of discharge. Met with Regina this date, she confirmed after fathers last admission to [facility] on 06/14 he went to [facility], then returned home with daughter Domenica and [facility]. Patient and daughter agree to a return to [facility] if it is medically indicated. If not he can return home with [facility] and home health. [facility] is reviewing. Physical therapy has been ordered, evaluation pending. PLAN: Pending additional information from therapies to help with determination SNF vs home with home health. CM Team to continue to follow. Discharge Planning/Care Management CM Discharge Assessment Start: 07/10/20 16:20 Freq: Status: Active Protocol: Document 07/11/20 11:22 AL (Rec: 07/11/20 11:31 AL [id number]) Discharge Planning Assessment Assigned Silk Blocker JUVENTINO Romero Student Contact Information Paola Watts, Family Advance Directives? No History Provided By Patient,Medical Record Prior Living Arrangements House Household Members none Type of transporation used prior to Relies on Others admit Independent with ADL's Yes Is patient alert and oriented? Yes Caregiver for Another No Comment Anticipated patient will need IV antibiotics at time of discharge DME Already Rented / Owned Wheelchair Barriers to Discharge Yes Comment IV antibiotics at time of discharge Discharge Plan Home Community Services IV Therapy Transportation Arrangement Patient friend can provide transporation at time of discharge Whiteboard Updated in Patient Room with Yes name and ext. # of Silk Blocker Review Status In Process Pre-Anesthesia Assessment Start: 07/08/20 08:13 Freq: Status: Active Protocol: Document 07/08/20 08:13 CAB (Rec: 07/08/20 08:35 [facility] [id number]) Pre-Anesthesia Assessment Patient Information Reviewed Via Chart Review Comment COVID screen not identified Primary Care Provider Rhianna Scanlon Seen Specialist in Last 12 Months Yes Specialist Seen Orthopedist,Other Comment Infectious disease Primary Language Slovenian Preferred Language Slovenian Electric Truck Operator Required No Height 175.26 cm Weight 88.451 kg Body Mass Index (BMI) 28.8 Barriers to Learning None Anesthesia Review Requested No alcohol intake current alcohol intake frequency 0-2 drinks per day Smoking Status Former smoker Substance Use Type marijuana Pain Present Pain Reported Musculoskeletal Symptoms Abnormal Gait,Difficulty Walking,Numbness Patient is completely paralyzed or No completely immobile Prosthesis or Orthotic Device Wheelchair Gait/Transferring Impaired Mental Status Oriented to own ability Comment Hx of Friedreichs ataxia, uses a power chair Is patient on oxygen? No Hx Sleep Apnea No Currently Taking a Beta Jann No Anti-Coagulant Therapy No Hx Pacemaker/ICD No Pacemaker Rep Required? No dysphagia Yes: Choking r/t ataxia Urinary Catheter Present No Hx Urinary Self Catheterization No Diabetes Yes HgbA1C 7.6 Date 04/29/20 Presence of External or Internal Medical Yes: Power chair Devices Marital Status Unknown Lives With family Patient Discharge Plan Description Return Home Comment Lives on [facility] Do You Have Any Spiritual Beliefs That No May Affect Your HC Choices? Do You Have Any Cultural Practices That No May Affect Your HC Choices? Emergency Contact Name Katja Carvajal(friend) Emergency Contact Phone Number [phone] Advance Directives? No
--- NOTE | 2020-07-11 18:03 | PC.NURSE ---
Addendum entered by Peri Gary R.N. 07/11/20 23:16: Pt mostly sleeping this shift. Requests assistance to elevate LLE on pillow and this was done. Scd remains in place to RLE. IV vancomycin infusing as ordered to left forearm iv without difficulty. Maintenance iv fluids dc'd per hospitalist verbal order. Addendum entered by Peri Gary R.N. 07/11/20 19:48: Addendum: Drain is hemovac; not VIPIN. Original Note: Pt resting quietly in bed @ beginning of shift. Has pillow under left knee and no spasms noted. Brian wrap to LLE is dry and intact with VIPIN compressed and intact. Scattered abraded areas to RLE/foot with scd in place. Pt prefers no gown in bed, but covered with bath blanket over lower part of body. Has slow, deliberate speech/movements. Requests pain meds for pain LLE 6/10 and oxycodone was given. Pt requests 10 units lispro insulin for blood glucose 190. This was given by Pau kevin RN. Urinal @ bedside for pt use.
[2020-07-11] MEDS: PRAVASTATIN 20 MG TABLET PO (21:29)
[2020-07-11] MEDS: SODIUM CHLORIDE 0.9% FLUSH 10 ML IV (21:33)
[2020-07-11 22:16] VITALS: BP 131/81; PULSE 78; RESP 22; TEMP 36.8; O2SAT 97
[2020-07-12] VITALS (7 sets, daily range): BP systolic 112–144; BP diastolic 72–89; PULSE 63–87; RESP 18–20; TEMP 35.9–36.7; O2SAT 92–99
[2020-07-12] MEDS: OXYCODONE IR 10 MG TABLET PO ×6 (01:43→21:14)
--- NOTE | 2020-07-12 03:47 | PC.NURSE ---
All bedding changed per patients request. Patient comfortable now. earlier pain med at 0143 still effective. Noticing less leg spasms this shift.
[2020-07-12] MEDS: CEFEPIME 2 GM in SODIUM CHLORIDE 0.9% 100 ML 200 ML IV ×3 (05:32→21:14)
[2020-07-12] MEDS: SODIUM CHLORIDE 0.9% FLUSH 10 ML IV ×3 (05:33→21:16)
[2020-07-12 05:40] LABS: Alanine Aminotransferase 36 IU/L (<50); Albumin 3.9 g/dL (3.5-5.0); Albumin Globulin Ratio 1.1 (1.0-2.8); Alkaline Phosphatase 60 U/L (38-126); Aspartate Aminotransferase 33 IU/L (17-59); Bilirubin Total 0.8 mg/dL (0.2-1.3); Blood Urea Nitrogen 12 mg/dL (9-20); Calcium 9.6 mg/dL (8.4-10.2); Carbon Dioxide 28 mmol/L (22-32); Chloride 101 mmol/L (98-107); Estimated Glomerular Filt Rate > 60.0 mL/min (>60); Globulin 3.7 g/dL (1.7-4.1); Glucose 168 mg/dL (80-110); HEMOLYSIS < 15 (0-50); Potassium 4.8 mmol/L (3.4-5.1); Sodium 137 mmol/L (137-145); Total Protein 7.6 g/dL (6.3-8.2)
[2020-07-12] MEDS: VANCOMYCIN 1,250 MG/250 ML PIGGYBACK IV ×3 (06:12→23:23)
[2020-07-12] MEDS: INSULIN GLARGINE 100 UNIT/ML 3ML PEN 25 UNIT SUBCUT (08:22)
[2020-07-12] MEDS: INSULIN LISPRO 100 UNIT/ML 3ML VIAL SUBCUT ×2 (08:23→17:12)
[2020-07-12] MEDS: GABAPENTIN 300 MG CAPSULE PO ×3 (08:34→21:15)
[2020-07-12] MEDS: DULOXETINE 30 MG CAPSULE PO (08:34)
[2020-07-12] MEDS: BACLOFEN 10 MG TABLET 5 MG PO ×3 (08:35→21:15)
[2020-07-12] MEDS: DOCUSATE 100 MG CAPSULE PO ×2 (08:35→21:15)
[2020-07-12] MEDS: HEPARIN 5,000 UNIT/ML VIAL 5000 UNIT SUBCUT ×2 (08:35→21:14)
--- NOTE | 2020-07-12 11:33 | PC.NURSE ---
Day shift note: Hemovac drain discontinued per Dr. Worley order. 24 hour total amount of drainage output = 12ml. Scant amount on removal. Tolerated well.
--- NOTE | 2020-07-12 11:35 | PT-IP ANOTE ---
Pt continues to refuse PT, telling RN this AM that he would not participate until tomorrow. PT attempted to contact pt but was met with adamant refusal.
--- NOTE | 2020-07-12 12:18 | P.PN_ITS ---
Subjective Subjective Date Patient Seen: 07/12/20 Time Patient Seen: 12:18 Interval history: Patient states he was having quite severe pain yesterday evening. Pain is mild in nature in better controlled this morning. No fever chills. No nausea vomiting Exam Vital Signs (past 8 hours): - 07/12/20 05:25 07/12/20 07:40 07/12/20 07:59 Temperature 97.1 F L 98.0 F Pulse Rate 87 82 63 Respiratory Rate 18 18 18 Blood Pressure 131/82 144/89 H Pulse Oximetry 97 95 96 Oxygen Delivery Method Room Air Oxygen Flow Rate 0 Narrative Exam Narrative: 60-year-old male resting comfortably in bed in no apparent distress. The splint is intact, clean and dry. Hemovac shows scant serosangui neous drainage Objective Labs Result Diagrams: 07/11/20 05:15 07/12/20 05:20 Labs: Laboratory Results - last 24 hr 07/12/20 05:20 Sodium 137 Potassium 4.8 Chloride 101 Carbon Dioxide 28 BUN 12 Creatinine 0.80 Estimated GFR > 60.0 BUN/Creatinine Ratio 15.0 Glucose 168 H Calcium 9.6 Total Bilirubin 0.8 AST 33 ALT 36 Alkaline Phosphatase 60 Total Protein 7.6 Albumin 3.9 Globulin 3.7 Albumin/Globulin Ratio 1.1 PFSH Medical History Arthritis Chronic pain Depression Friedreich ataxia HLD (hyperlipidemia) Osteomyelitis Osteoporosis Scoliosis Type 2 diabetes mellitus Venous stasis Surgical History History of surgery (04/30/20) No pertinent past surgical history Status post transmetatarsal amputation of left foot Social History household members: none Smoking Status: Current every day smoker alcohol intake: current Assessment & Plan Post-op Postoperative Procedures: Procedures Operation Date: 07/09/20 13:30 Actual Procedures Side Surgeon p transmetatarsal amputation foot Left Katelyn Worley MD Postop day 3. Status post transmetatarsal amputation left foot, Achilles tendon lengthening left ankle. Continue to work on pain control. Final cultures pending. Continue IV antibiotics. If cultures finalize showing no growth in DC without antibiotics. Likely discharge tomorrow. Quality VTE Deep Vein Thrombosis/Pulmonary Embolism Present on Admission: No
--- NOTE | 2020-07-12 12:56 | PM.PN.1 ---
Subjective Subjective Date Patient Seen: 07/12/20 Time Patient Seen: 08:56 Interval history: Today he states his pain is improved. He otherwise has no complaints. His blood sugars have improved control after changing insulin. Exam Vital Signs (past 8 hours): - 07/12/20 05:25 07/12/20 07:40 07/12/20 07:59 Temperature 97.1 F L 98.0 F Pulse Rate 87 82 63 Respiratory Rate 18 18 18 Blood Pressure 131/82 144/89 H Pulse Oximetry 97 95 96 Oxygen Delivery Method Room Air Oxygen Flow Rate 0 Narrative Exam Narrative: General: no acute distress Lungs: clear bilaterally Cardio: regular rate and rhythm without murmurs Abdomen: Soft nontender, negative for organomegaly EXT: left leg bandaged Neuro: Alert and orientated x3, strength is +5/5 in all extremities Objective Labs Result Diagrams: 07/11/20 05:15 07/12/20 05:20 Labs: Laboratory Results - last 24 hr 07/12/20 05:20 Sodium 137 Potassium 4.8 Chloride 101 Carbon Dioxide 28 BUN 12 Creatinine 0.80 Estimated GFR > 60.0 BUN/Creatinine Ratio 15.0 Glucose 168 H Calcium 9.6 Total Bilirubin 0.8 AST 33 ALT 36 Alkaline Phosphatase 60 Total Protein 7.6 Albumin 3.9 Globulin 3.7 Albumin/Globulin Ratio 1.1 PFSH Medical History Arthritis Chronic pain Depression Friedreich ataxia HLD (hyperlipidemia) Osteomyelitis Osteoporosis Scoliosis Type 2 diabetes mellitus Venous stasis Surgical History History of surgery (04/30/20) No pertinent past surgical history Status post transmetatarsal amputation of left foot Social History household members: none Smoking Status: Current every day smoker alcohol intake: current Assessment & Plan Assessment & Plan narrative: Mr. Reis is a 59M with PMH of Freidrich's ataxia, DM2, chronic pain, hypertension, hyperlipidemia, and depression. Dr. Crooks requested consult on the patient in the management of his medical issues while hospitalized. Patient will remain in the hospital until Sunday pending culture results from the surgery. 1. 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 Crooks. -patient to be followed by Dr. Crooks and Dr. Macias -patient to continue on Maxipime 2 g q.8 hours and vancomycin per pharmacy -follow up cultures 2. Insulin-dependent type 2 diabetes with neuropathy, acute on chronic, unknown of present on admission, control unknown -A1C 8.1% -patient under diabetes protocol, blood sugar checks ACHS -increased Lantus dose to 40units total daily ---->taking 20 at bedtime and 20 in the a.m. -ordered sliding scale insulin -would recommend dc with new insulin dose for better blood sugar control 3. Jesus's ataxia, acute on chronic, stable, unknown of present on admission -patient denies difficulty with swallowing 4. chronic pain, acute on chronic, unknown of present on admission - continue home oxycodone 5 mg as needed. -PRN 10 oxycodone q.3 hours as needed for postoperative pain. -patient to be monitored for respiratory suppression, respiratory consult completed 5. Hyperlipidemia as a result of insulin-dependent type 2 diabetes, chronic, not present on admission-control unknown - continue home pravastatin 20mg 6. Depression, chronic, unknown if present on admission-controlled -patient denies depression symptoms at this time or suicidal ideation - continue home duloxetine. Code Status: Full Code Surrogate decision maker: Partner Pippaubaldo BARNARD PCR: Negative VTE/DVT prophylaxis: per surgery Patient is medically stable, no longer needing insulin adjustments. Medicine will sign off, please consult if any questions or concerns. Quality VTE Deep Vein Thrombosis/Pulmonary Embolism Present on Admission: No
--- NOTE | 2020-07-12 15:37 | CM.DPC ---
DCP Continued: This technical writer spoke with [facility]/ Marty Corrigan this am he reported cultures are pending. Cultures will determine if IV antibiotics are needed at time of discharge. Cultures are not anticipated to become available for 2 more days. Called [facility] . Infusions are taken care of via oncology department. Called to gather information, there was no answer, left a message. PLAN: CM Team to continue to follow. JUVENTINO Montenegro MSW Student
[2020-07-12] MEDS: PRAVASTATIN 20 MG TABLET PO (21:15)
[2020-07-13] VITALS: BP 148/94; PULSE 92; RESP 18; TEMP 36.7; O2SAT 99
[2020-07-13] MEDS: OXYCODONE IR 10 MG TABLET PO ×4 (03:26→21:40)
[2020-07-13 03:47] VITALS: BP 150/88; PULSE 75; RESP 18; TEMP 36.6; O2SAT 99
[2020-07-13] MEDS: SODIUM CHLORIDE 0.9% 250 ML 21 ML IV (05:28)
[2020-07-13] MEDS: CEFEPIME 2 GM in SODIUM CHLORIDE 0.9% 100 ML 200 ML IV ×3 (05:28→21:40)
[2020-07-13] MEDS: SODIUM CHLORIDE 0.9% FLUSH 10 ML IV ×3 (05:28→21:40)
[2020-07-13 05:44] LABS: Alanine Aminotransferase 38 IU/L (<50); Albumin 3.9 g/dL (3.5-5.0); Albumin Globulin Ratio 1.1 (1.0-2.8); Alkaline Phosphatase 65 U/L (38-126); Aspartate Aminotransferase 36 IU/L (17-59); BUN Creatinine Ratio 17.7 (6-22); Bilirubin Total 0.5 mg/dL (0.2-1.3); Blood Urea Nitrogen 14 mg/dL (9-20); Calcium 9.6 mg/dL (8.4-10.2); Carbon Dioxide 27 mmol/L (22-32); Chloride 102 mmol/L (98-107); Estimated Glomerular Filt Rate > 60.0 mL/min (>60); Globulin 3.7 g/dL (1.7-4.1); Glucose 180 mg/dL (80-110); HEMOLYSIS < 15 (0-50); Potassium 4.3 mmol/L (3.4-5.1); Sodium 136 mmol/L (137-145); Total Protein 7.6 g/dL (6.3-8.2)
[2020-07-13] MEDS: VANCOMYCIN 1,250 MG/250 ML PIGGYBACK 166.7 MG IV ×3 (06:16→23:20)
[2020-07-13 08:07] VITALS: BP 134/96; PULSE 79; RESP 16; TEMP 36.1; O2SAT 98
[2020-07-13] MEDS: INSULIN GLARGINE 100 UNIT/ML 3ML PEN 25 UNIT SUBCUT ×2 (08:12→21:32)
[2020-07-13] MEDS: HEPARIN 5,000 UNIT/ML VIAL 5000 UNIT SUBCUT ×2 (08:13→21:39)
[2020-07-13] MEDS: INSULIN LISPRO 100 UNIT/ML 3ML VIAL SUBCUT ×3 (08:13→17:21)
[2020-07-13] MEDS: DOCUSATE 100 MG CAPSULE PO ×2 (08:13→21:40)
[2020-07-13] MEDS: DULOXETINE 30 MG CAPSULE PO (08:13)
[2020-07-13] MEDS: GABAPENTIN 300 MG CAPSULE PO ×3 (08:13→21:40)
--- NOTE | 2020-07-13 10:12 | PM.PNPO.1 ---
Subjective Subjective Date Patient Seen: 07/13/20 Time Patient Seen: 07:48 Interval history: Pain is moderate. Denies fever or chills. No nausea or vomiting. Exam Vital Signs (past 8 hours): - 07/13/20 03:47 07/13/20 08:07 Temperature 97.9 F 97.0 F L Pulse Rate 75 79 Respiratory Rate 18 16 Blood Pressure 150/88 H 134/96 H Pulse Oximetry 99 98 Oxygen Delivery Method Room Air Oxygen Flow Rate 0 Narrative Exam Narrative: 60-year-old male resting comfortably in bed in no apparent distress. Splint and dressing are intact. Objective Labs Result Diagrams: 07/11/20 05:15 07/13/20 05:15 Labs: Laboratory Results - last 24 hr 07/13/20 05:15 Sodium 136 L Potassium 4.3 Chloride 102 Carbon Dioxide 27 BUN 14 Creatinine 0.79 Estimated GFR > 60.0 BUN/Creatinine Ratio 17.7 Glucose 180 H Calcium 9.6 Total Bilirubin 0.5 AST 36 ALT 38 Alkaline Phosphatase 65 Total Protein 7.6 Albumin 3.9 Globulin 3.7 Albumin/Globulin Ratio 1.1 FAX TO: ORDERED: WOUND Cx and GS COMMENTS: Comment BONE LEFT FOOT 1ST METATARSAL Procedure Result Verified Site Gram Stain Final 07/09/20-175 No Organism Seen No organisms seen White blood cells Occasional WBC seen Aerobic Culture for wounds Final 07/12/20-838 No growth. Anaerobic Culture Preliminary 07/12/20-913 [facility] Medical History Arthritis Chronic pain Depression Friedreich ataxia HLD (hyperlipidemia) Osteomyelitis Osteoporosis Scoliosis Type 2 diabetes mellitus Venous stasis Surgical History History of surgery (04/30/20) No pertinent past surgical history Status post transmetatarsal amputation of left foot Social History household members: none Smoking Status: Current every day smoker alcohol intake: current Assessment & Plan Post-op Postoperative Procedures: Procedures Operation Date: 07/09/20 13:30 Actual Procedures Side Surgeon p transmetatarsal amputation foot Left Katelyn Worley MD Postop day 4. Status post transmetatarsal amputation left foot, Achilles tendon lengthening left ankle. Continue to work on pain control. Final cultures pending. Continue IV antibiotics. If cultures finalize showing no growth then discharge without antibiotics. Likely discharge today once cultures final. Quality VTE Deep Vein Thrombosis/Pulmonary Embolism Present on Admission: No
[2020-07-13] MEDS: BACLOFEN 10 MG TABLET PO ×3 (10:15→21:44)
--- NOTE | 2020-07-13 10:23 | PT.IIE ---
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 (07/09/20) Subacute osteomyelitis, left ankle and foot (07/09/20) Unsteadiness on feet (07/09/20) Surgery Performed Operation Date: 07/09/20 13:30 Actual Procedures p transmetatarsal amputation foot(Left) - Katelyn Worley MD Surgical History (Last Reviewed 07/13/20 @ 10:13 by Yusuf Corrigan PA-C) History of surgery (04/30/20) No pertinent past surgical history Status post transmetatarsal amputation of left foot Medical History (Last Reviewed 07/13/20 @ 10:12 by Yusuf Corrigan PA-C) Arthritis Chronic pain Depression Friedreich ataxia HLD (hyperlipidemia) Osteomyelitis Osteoporosis Scoliosis Type 2 diabetes mellitus Venous stasis Physical Therapy Inpatient Evaluation/Re-Eval M1 PT/OT-IP Prior Functional Status Start: 07/10/20 10:30 Freq: NEEDED Status: Active Protocol: Document 07/13/20 10:23 AB (Rec: 07/13/20 11:53 AB [id number]) Medical Review Prior Functional Status Medical History Reviewed Yes Communication able to make needs known Mobility and Gait pt stated that he is modified independent with all mobilities and is w/c bound and has not walked for years. pt uses his electric w/c for mobility, has a transfer pole bedside and next to the toilet to assist with transfers. stated that he is modified independent with stand pivot transfer with transfer pole/ grab bar. Social History Household Members none Living Arrangements House Number of Floors (Floors) One Floor Number of Stairs To Enter/Railing? no steps to enter Home Environment Standard Height Toilet,Walk in Shower,Built-In Shower Seat Home Equipment Power Wheelchair/Scooter,Grab Bars In Shower Additional Social History Comment pt has a transfer pole next to the bed and next to the toilet to assist him with pivot transfers also stated that he has a rope with knots attached to the ceiling to assist him with positioning in bed stated that his friends help him with groceries M2 PT-IP Current Condition Start: 07/10/20 10:30 Freq: NEEDED Status: Active Protocol: Document 07/13/20 10:23 AB (Rec: 07/13/20 11:53 AB [email or web address]) Physical Therapy Current Condition Current Condition Evaluation Date 07/13/20 Treatment Diagnosis s/p L transmetatarsal amputation; generalized weakness Onset Date 07/09/20 Precautions Other Precautions per Dr. Amato: L heel or flatfoot weight-bearing on the splint for transfers. Weight Bearing Status Weight Bearing Status Weight Bear as Tolerated Allowed Weight Bearing Amount (enter % L heel or flatfoot weight- or #) (%) bearing on the splint for transfers M3 PT-IP Subjective Start: 07/10/20 10:30 Freq: NEEDED Status: Active Protocol: Document 07/13/20 10:23 AB (Rec: 07/13/20 11:53 AB [email or web address]) Subjective Physical Therapy Visit Type Type Initial Evaluation Visit Start Time 10:23 Visit Stop Time 10:47 Total Visit Minutes 24 Number of ENVIRONMENTAL DEPARTMENT MANAGER Visits 0 Physical Therapy Visit Comments Patient Comments wanted to do stretching prior to mobility Therapy Pain Assessment Pain When Pain Assessed At Rest Pain Present Pain Present Pain Reported Location Left Foot Scale Used pain scale not stated Pain Management Techniques Distraction,Modification of Treatment,Re-positioning, Timing of Activity with Medications M4 PT-IP Mobility and Gait Start: 07/10/20 10:30 Freq: NEEDED Status: Active Protocol: Document 07/13/20 10:23 AB (Rec: 07/13/20 11:53 AB [email or web address]) PT-Bed Mobility Assessment Rolling Level of Assist Maximal Assistance,1 Person Assistance Supine to Sit Supine to Sit Maximum Assistance,1 Person Assistance,Head of Bed Elevated,Bedrails Scooting Scooting to Edge of Bed Maximum Assistance PT-Transfer Assessment Equipment Orthotic/Prosthetic Devices or Brace: Yes Transfers Transfer Destination Wheelchair Transfer Technique Lateral Scoot Transfer Ability Level of Assist Maximum Assistance,1 Person Assistance,Use of Upper Extremities Comments Mobility Comments pt requested to do stretching prior to mobility. completed sidelying LE stretching to extension and supine hamstrings stretches and ankle DF stretching. completed supine to sit with HOB elevated per pt's request and used bed rails to assist max A and cues. pt has his power w /c in room and completed scoot transfer max A and cues. pt used arm rest of w/c to pull and scoot over. positioned pt on electric w/c. seat belt on. pt requested to have his belt around his knees for support due to increase abductor tone and pt wanting support on LE. informed nurse/ NAC regarding pt's mobility assistance. PT-Balance Assessment Sitting Balance and Reactions Static Sitting Balance Ability Fair Dynamic Sitting Balance Ability Fair Standing Balance and Reactions Device Used n/t M5 PT-IP Objective Assessments Start: 07/10/20 10:30 Freq: NEEDED Status: Active Protocol: Document 07/13/20 10:23 AB (Rec: 07/13/20 11:53 AB [email or web address]) Orientation Orientation/Cognition Level of Alertness Alert Orientation Name,Place,Situation Safety Awareness Decreased Safety Awareness Gross Range of Motion Lower Extremity ROM Impairments has hip flexor tightness and knee flexor tightness Strength Lower Extremity Strength Hip 3+/5 Knee 3+/5 Coordination Assessment Gross Coordination Gross Coordination Impaired Assessment Coordination 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 Sensation Assessment Sensation Gross Sensation Right LE Impaired,Left LE Impaired Sensation Description Numbness Comments Sensation Comments stated numbness on BLE Muscle Tone Muscle Tone WNL No Muscle Tone Location Bilateral Lower Extremity Type of Tone Hypertonicity Severity of Tone Moderate Manifistation of Tone Fluctuation,Ataxia Comments Muscle Tone Comments also has truncal fluctuating ataxia M6 PT-IP Treatment Start: 07/10/20 10:30 Freq: NEEDED Status: Active Protocol: Document 07/13/20 10:23 AB (Rec: 07/13/20 11:53 AB [email or web address]) Physical Therapy Treatment Education Education Provided Safety Other Treatments Other Treatment Performed supine LE stretching conducted M7 PT-IP Assessment and Plan Start: 07/10/20 10:30 Freq: NEEDED Status: Active Protocol: Document 07/13/20 10:23 AB (Rec: 07/13/20 11:53 AB [email or web address]) PT Summary Assessment and Plan Potential Rehabilitation Potential Fair Status of Condition at Evaluation Evolving Summary Impairments Pain,ROM,Strength,Balance, Coordination,Sensation,Tone, Cognition,Bed Mobility, Transfers,Gait,Activity Tolerance Assessment Summary pt requiring max A with mobility and is non ambulatory . informed pt regarding SNF and pt refuse and stated not to even mention about SNF. pt agreed to HHPT. pt has his home set up and stated that he can manage at home. pt directs his own care. Goals Bed Mobility Goal Standby Assistance Transfer Goal Standby Assistance Days to Meet Goals 5 Frequency of Treatment Frequency Of Treatment Once a Day Treatment Plan Physical Therapy Treatment Plan Bed Mobility Training,Transfer Training,Gait Training, Therapeutic Exercise,Balance Retraining,Post Op Education, Discharge Planning,Hot or Cold Pack,Neuromuscular Re-ed, Coordination Retraining,Manual Therapy Precautions Other Precautions falls Recommendations To Nursing Amount of Assist Needed 2 Person Assist Discharge Recommendations PT Discharge Recommendations Home vs SNF Transportation Needs at Discharge Private Vehicle,Wheelchair/ Cabulance
[2020-07-13 11:18] VITALS: BP 125/76; PULSE 85; RESP 16; TEMP 36.3; O2SAT 97
--- NOTE | 2020-07-13 14:35 | PC.NURSE ---
A&O x3. VSS. B, given 8 units humolog ss. Pain 4-5/10. Given PRN 10 mg oxycodone. Left food Brian wrap cdi. Worked with PT today, got him up into his chair. Mostly independent up in electric chair. Call light within reach, bed low, calls appropriately. Waiting on results of culture.
--- NOTE | 2020-07-13 15:02 | CM.DPC ---
DCP Cont: Per Ortho PA, awaiting final cultures to return to determine if and what IV-Abx may be needed at d/c. PT worked with pt today and aware that pt strongly declines going to SNF and feels he is set up for d/c to home and agreeable with HH. MARQUIS called [facility] and confirmed pt open to service with them already, they are very aware of pt as they have worked with him many times and just need Resume orders at d/c and no CLOTH SPREADER available for Sunday but have RN/PT/OT. MARQUIS faxed clinicals to review as pt closer to d/c and currently per RN there has been no wound care needed as pt's amputated toes/foot in a cast. MARQUIS spoke to Roya at [facility] in Sunday ([phone]) and she states that to start pt on infusions at their clinic they need to set up temporary priviledges for the following MD and Roya faxed the document with the information needed from the MD (NPI, LORRI, medical license number,etc). Roya aware that still awaiting cultures to determine if, what, how often abx needed. Plan: MARQUIS to follow closely tomorrow to hopefully determine if IV-Abx needed and if reasonable to have pt go to [facility] vs paying for home infusion?? [facility] Res[facility] Orders and d/c summary will be needed at discharge. JUVENTINO Vieyra
[2020-07-13 15:45] VITALS: BP 138/62; PULSE 81; RESP 18; TEMP 36.4; O2SAT 99
[2020-07-13 20:45] VITALS: BP 129/81; PULSE 76; RESP 20; TEMP 36.3; O2SAT 98
[2020-07-13] MEDS: PRAVASTATIN 20 MG TABLET PO (21:40)
[2020-07-14 02:22] VITALS: BP 132/79; PULSE 77; RESP 16; TEMP 36.1; O2SAT 99
[2020-07-14 04:44] VITALS: BP 148/55; PULSE 77; RESP 16; TEMP 36.2; O2SAT 99
[2020-07-14] MEDS: OXYCODONE IR 10 MG TABLET PO ×3 (04:44→21:21)
[2020-07-14] MEDS: SODIUM CHLORIDE 0.9% FLUSH 10 ML IV ×2 (06:24→21:22)
[2020-07-14] MEDS: CEFEPIME 2 GM in SODIUM CHLORIDE 0.9% 100 ML 200 ML IV ×3 (06:24→21:50)
[2020-07-14] MEDS: VANCOMYCIN 1,250 MG/250 ML PIGGYBACK 166.7 MG IV (06:57)
[2020-07-14 07:14] VITALS: BP 124/78; PULSE 78; RESP 16; TEMP 36.2; O2SAT 99
--- NOTE | 2020-07-14 08:03 | PM.PNPO.1 ---
Subjective Subjective Date Patient Seen: 07/14/20 Time Patient Seen: 08:03 Interval history: pod l tma- baclofen helping spasms --still awaiting final cultuyre and pathology- Exam Vital Signs (past 8 hours): - 07/14/20 02:22 07/14/20 04:44 Temperature 97.0 F L 97.1 F L Pulse Rate 77 77 Respiratory Rate 16 16 Blood Pressure 132/79 148/55 H Pulse Oximetry 99 99 Oxygen Delivery Method Room Air Oxygen Flow Rate 0 Narrative Exam Narrative: NDA MSK lle splint c/d/i Objective Labs Result Diagrams: 07/11/20 05:15 07/13/20 05:15 PFSH Medical History Arthritis Chronic pain Depression Friedreich ataxia HLD (hyperlipidemia) Osteomyelitis Osteoporosis Scoliosis Type 2 diabetes mellitus Venous stasis Surgical History History of surgery (04/30/20) No pertinent past surgical history Status post transmetatarsal amputation of left foot Social History household members: none Smoking Status: Current every day smoker alcohol intake: current Assessment & Plan Post-op Postoperative Procedures: Procedures Operation Date: 07/09/20 13:30 Actual Procedures Side Surgeon p transmetatarsal amputation foot Left Katelyn Worley MD LLE TMA- doing well on iv abx awaiting final cx-- and path margin - if neg then will dc w/o abx -- pathologist to call my cell with results continue baclofen has progressive nm disease - discussed pallative care consult while inpt for future planning-no interest in nursing facilities will dc home once path/culture final and these [place] dictate [place] abx discussed with nehat infectious disease Dr. Kailey Macias current meet inpt requirement for IV abx requirement. Quality VTE Deep Vein Thrombosis/Pulmonary Embolism Present on Admission: No
[2020-07-14] MEDS: DULOXETINE 30 MG CAPSULE PO (08:35)
[2020-07-14] MEDS: GABAPENTIN 300 MG CAPSULE PO ×3 (08:35→21:21)
[2020-07-14] MEDS: DOCUSATE 100 MG CAPSULE PO ×2 (08:35→21:21)
[2020-07-14] MEDS: BACLOFEN 10 MG TABLET PO ×2 (08:35→14:44)
[2020-07-14] MEDS: HEPARIN 5,000 UNIT/ML VIAL 5000 UNIT SUBCUT ×2 (08:36→21:21)
[2020-07-14] MEDS: INSULIN LISPRO 100 UNIT/ML 3ML VIAL SUBCUT ×3 (08:45→18:44)
[2020-07-14] MEDS: INSULIN GLARGINE 100 UNIT/ML 3ML PEN 25 UNIT SUBCUT ×2 (08:46→21:21)
--- NOTE | 2020-07-14 09:05 | OT.IP.EVAL ---
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 (07/09/20) Subacute osteomyelitis, left ankle and foot (07/09/20) Unsteadiness on feet (07/09/20) Surgery Performed Operation Date: 07/09/20 13:30 Actual Procedures p transmetatarsal amputation foot(Left) - Katelyn Worley MD Past Medical History (Last Reviewed 07/13/20 @ 10:12 by Yusuf Corrigan PA-C) Arthritis Chronic pain Depression Friedreich ataxia HLD (hyperlipidemia) Osteomyelitis Osteoporosis Scoliosis Type 2 diabetes mellitus Venous stasis Surgical History (Last Reviewed 07/13/20 @ 10:13 by Yusuf Corrigan PA-C) History of surgery (04/30/20) No pertinent past surgical history Status post transmetatarsal amputation of left foot Occupational Therapy Inpatient Evaluation/Re-Eval M1 PT/OT-IP Prior Functional Status Start: 07/10/20 10:30 Freq: NEEDED Status: Active Protocol: Document 07/14/20 09:05 [facility] (Rec: 07/14/20 09:33 [facility] [id number]) Medical Review Prior Functional Status Medical History Reviewed Yes Communication able to make needs known Mobility and Gait pt stated that he is modified independent with all mobilities and is w/c bound and has not walked for years. pt uses his electric w/c for mobility, has a transfer pole bedside and next to the toilet to assist with transfers. stated that he is modified independent with stand pivot transfer with transfer pole/ grab bar. Activities of Daily Living and IADL's Pt states just sits in the wc or from the bed to get dressed . Pt use of transfer pole to get to the toilet, and now has a rolling shower chair to get to the shower. Prior Functional Level (Other details) Pt states use of Senior Van to get around or just use of his electric wc. Social History Household Members none Living Arrangements House Number of Floors (Floors) One Floor Number of Stairs To Enter/Railing? no steps to enter Home Environment Standard Height Toilet,Walk in Shower,Built-In Shower Seat Home Equipment Power Wheelchair/Scooter,Hand Held Shower,Motion Picture Set Grip,Grab Bars In Shower Additional Social History Comment pt has a transfer pole next to the bed and next to the toilet to assist him with pivot transfers also stated that he has a rope with knots attached to the ceiling to assist him with positioning in bed stated that his friends help him with groceries M2 OT-IP Current Condition Start: 07/14/20 09:09 Freq: Status: Active Protocol: Document 07/14/20 09:05 [facility] (Rec: 07/14/20 09:33 [facility] [id number]) Occupational Therapy Current Condition Current Condition Evaluation Date 07/14/20 Treatment Diagnosis s/p Left transmetatarsal amputation, decreased mobility . Diagnosis Onset Date 07/09/20 Post Operative Precautions Other Precautions Left heel ot flat foot weight bearing on splint for transfers. Weight Bearing Status Weight Bearing Status Weight Bear as Tolerated M3 OT- IP Subjective and Pain Start: 07/14/20 09:09 Freq: Status: Active Protocol: Document 07/14/20 09:05 [facility] (Rec: 07/14/20 09:33 [facility] [id number]) OT- Subjective Occupational Therapy Visit Type Type Initial Evaluation Visit Start Time 08:32 Visit Stop Time 09:05 Total Visit Minutes 33 Occupational Therapy Visit Comments Patient Comments Pt agreed to work with OT, however did not want to get up as would rather just get up with PT as this time as only planning on getting up one time. Patient/Caregiver Goals To go home. OT Pain Assessment Pain When Pain Assessed At Rest Pain Present Pain Present Denied Pain M4 OT- IP ADL's Start: 07/14/20 09:09 Freq: Status: Active Protocol: Document 07/14/20 09:05 [facility] (Rec: 07/14/20 09:33 [facility] [id number]) OT [id number] General Evaluation Self-Feeding Ability Independent OT ADL-Grooming General Evaluation Grooming Ability Independent Comments OT Grooming Comments Pt able to do from bed. OT ADL-Dressing Comments OT Dressing Comments Pt did not want to attempt at this time. Pt states wears compression stocking and states at times has difficulty to hold one leg and herbert the stocking with the other hand. Suggested would be beneficial to take to attach a strap from the power chair to help hold his leg in place so able to get his compression stocking on. OT ADL-Toileting Comments OT Toileting Comments Not performed. OT ADL-Bathing Comments OT Bathing Comments Bed bath more appropriate at this time. Pt has a rolling shower chair at home. M5 OT- IP IADL's Start: 07/14/20 09:09 Freq: Status: Active Protocol: Document 07/14/20 09:05 [facility] (Rec: 07/14/20 09:33 [facility] [id number]) OT-Instrumental Activities of Daily Living Home Safety Awareness Awareness of Need for Assistance at Home Good Awareness Meal Preparation Meal Preparation Comments Pt states kitchen counters as wheelchair accessible. Director Of Government Sales Director Of Government Sales Comments Pt states use of lap tray attached to his wc to move items around. Driving Driving Comments Pt use of his power chair or use of Senior Van to get to place to place. M6 OT- IP Functional Cognition Start: 07/14/20 09:09 Freq: Status: Active Protocol: Document 07/14/20 09:05 [facility] (Rec: 07/14/20 09:33 [facility] [id number]) Cognitive Factors Limiting Selfcare Function Cognitive Ability Level of Alertness Alert Patient Orientation Name,Age,Birthday,Month,Date, Year,Day of Week,Place, Situation Attention Span Ability Capable of Focused Attention, Capable of Sustained Attention Ability to Follow Commands Able to Follow One Step Commands Cognitive Comments Cognitive Assessment Comments Pt feels that he just wants to focus on getting stronger and work with only PT at this time as he feels that he has a good set-up at home for ADL and IADl needs. OT- Vision and Hearing OT- Hearing Assessment OT- Hearing Assessment WFL OT- Vision Assessment Visual Acuity Glasses All The Time M7 OT- IP Mobility and Balance Start: 07/14/20 09:09 Freq: Status: Active Protocol: Document 07/14/20 09:05 [facility] (Rec: 07/14/20 09:33 [facility] [id number]) OT-Transfer Assessment Comments Mobility Comments NOt wanting to get up at this time. M8 OT- IP Objective Assessments Start: 07/14/20 09:09 Freq: Status: Active Protocol: Document 07/14/20 09:05 [facility] (Rec: 07/14/20 09:33 [facility] [id number]) OT Gross Range of Motion Upper Extremity Range of Motion Assessment Within Functional Limits OT Strength Upper Extremity Strength Assessment Within Functional Limits Comments Strength Comments Pt given therabands to work on while in the hospital to help maintian his UE strength. OT-Muscle Tone Assessment Comments Muscle Tone Comments Pt ataxic movements for BUE. M9 OT- IP Assessment and Plan Start: 07/14/20 09:09 Freq: Status: Active Protocol: Document 07/14/20 09:05 [facility] (Rec: 07/14/20 09:33 [facility] [id number]) OT Summary Assessment and Plan Potential Rehabilitation Potential Good Analytic Complexity at Evaluation Low Summary OT Impairments Pain,Balance,Functional Mobility,Dressing,Toileting, Bathing,Toilet Transfers, Shower Transfers,Activity Tolerance Progress Towards Goals Slow Progress due to Medical Issues,Slow Progress due to Activity Tolerance Assessment Summary Pt low complexity and main barriers are pain , decreased activity tolerance, balance, and per PT eval needing MAX A x1 to transfer, however pt not wanting to get up for OT as just wanting to focus on seeing PT at this time for mobility needs as he feels that his home set-up for OT needs are in place. To touch basae with pt again tomorrow to see if pt wanting to do OT, otherwise to discharge pt form OT services. Goals Grooming Goal Independent Dressing Goal Independent Toileting Goal Independent Bathing Goal Independent Toilet Transfer Goal Independent Shower Transfer Goal Independent Days to Meet Goals 10 Frequency of Treatment Frequency Of Treatment Once a Day Treatment Plan OT Treatment Plan ADL Training,Functional Cognition Training,Functional Mobility,Patient/Family Education,Discharge Planning Other Treatment Recommendations and Next Touch base with pt whether he Treatment Focus is willing to do OT as on OT eval pt states just wanting to do PT at this time. Discharge Recommendations OT Discharge Recommendations Home Health,SNF Rehab,Home vs SNF Other Discharge Recommendations Pending progress, at this time pt would need SNF, however pt 's home set-up is more conducive to his needs and therefore hopefully will progress here to be able to go home with assist as needed and Home health. Transportation Needs at Discharge Wheelchair/Cabulance
--- NOTE | 2020-07-14 11:10 | DIET.PN ---
Dietary Progress Note Assessment: 60y M admitted for transmetatarsal amputation referred to nutrition for help with nutrition to support wound healing. HT: 175.2cm WT:81.6kg BMI:26.6 Labs:BG 149-180 Interventions: 1. Assisted pt with hospital menu ordering process to ensure he is able to choose menu items he prefers. Helped pt order dinner salad c hb egg and chicken for lunch today. 2. Discussed nutrients for wound healing, provided pt handout on food sources of protein, zinc, Vit A, and Vit c. Diet Order: CCD EER: 45g CHO/meal, 85g PRO (1.1g/kg per wound healing), adequate zinc, Vit A, Vit C
--- NOTE | 2020-07-14 11:35 | PT.IPTN ---
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 (07/09/20) Subacute osteomyelitis, left ankle and foot (07/09/20) Unsteadiness on feet (07/09/20) Surgery Performed Operation Date: 07/09/20 13:30 Actual Procedures p transmetatarsal amputation foot(Left) - Katelyn Worley MD Physical Therapy Treatment Note M2 PT-IP Current Condition Start: 07/10/20 10:30 Freq: NEEDED Status: Active Protocol: Document 07/13/20 10:23 [facility] (Rec: 07/13/20 11:53 AB [id number]) Physical Therapy Current Condition Current Condition Evaluation Date 07/13/20 Treatment Diagnosis s/p L transmetatarsal amputation; generalized weakness Onset Date 07/09/20 Precautions Other Precautions per Dr. Amato: L heel or flatfoot weight-bearing on the splint for transfers. Weight Bearing Status Weight Bearing Status Weight Bear as Tolerated Allowed Weight Bearing Amount (enter % L heel or flatfoot weight- or #) (%) bearing on the splint for transfers M3 PT-IP Subjective Start: 07/10/20 10:30 Freq: NEEDED Status: Active Protocol: Document 07/14/20 10:49 [facility] (Rec: 07/14/20 14:33 SP [id number]) Subjective Physical Therapy Visit Type Type Treatment Note Visit Start Time 10:49 Visit Stop Time 11:35 Total Visit Minutes 46 Number of BOTTLING LINE ATTENDANT Visits 1 Physical Therapy Visit Comments Patient Comments Pt willing to work with therapy. Patient Goals Pt stated wanting to return home with friends to assist him and HHPT. Pt adiment not wanting SNF recommended, has his house set up for the way he moves and works for him. Therapy Pain Assessment Pain Present Pain Present Pain Reported Location Left Foot Scale Used pain scale not stated Pain Management Techniques Distraction,Modification of Treatment,Re-positioning, Timing of Activity with Medications M4 PT-IP Mobility and Gait Start: 07/10/20 10:30 Freq: NEEDED Status: Active Protocol: Document 07/14/20 10:49 SP (Rec: 07/14/20 14:33 SP [id number]) PT-Bed Mobility Assessment Rolling Level of Assist Contact Guard Assistance Supine to Sit Supine to Sit Moderate Assistance,1 Person Assistance,Bedrails Scooting Scooting to Edge of Bed Minimal Assistance PT-Transfer Assessment Equipment Orthotic/Prosthetic Devices or Brace: Yes Transfers Transfer Destination Wheelchair Transfer Technique Lateral Scoot Transfer Ability Level of Assist Minimal Assistance,1 Person Assistance,Use of Upper Extremities Comments Mobility Comments Pt directs his mobility. Completed supine>sit with use of bedrails (has transfer pole uses at bedside at home), support for LLE reposition to EOB Min then trunk righting to sit Mod A x1, Scoot to EOB Mod A with use of transfer pad and bed self bed rail LUE and other UE WB on bed. Pt able to sit at EOB unsupported. Pt directs power w/c reposition R arm rest (was folded up position from previous staff) to allow self repositioning of w/c in position needs for transfer. Pt required assist for lowering foot plate from folded position stated place by previous staff and Evan for BLE onto foot plate. Pt able to lateral scoot reaching across to opposite arm rest, Min A for lateral scoot and WB BLE (heel only LLE) to complete. Pt fastened seat belt of w/c. He reported didn' t knee belt around knees at this time did in previous tx. Pt was ableto w/c navigate around room and obstacle course in hallway set up with good skill pathfinding mgt, BOTTLING LINE ATTENDANT managed IV pole. Pt was seated in power w/c and had call light and all needs in reach before left. Gait Assessment Comments Gait Comments Does not walk, not need to assess. Transfer only. Safety w/c mobility assessed Mod I and adjusted pacing speed for obstacle navigation. See mobility comments. PT-Balance Assessment Sitting Balance and Reactions Static Sitting Balance Ability Fair Dynamic Sitting Balance Ability Fair Standing Balance and Reactions Device Used n/t M5 PT-IP Objective Assessments Start: 07/10/20 10:30 Freq: NEEDED Status: Active Protocol: Document 07/13/20 10:23 [facility] (Rec: 07/13/20 11:53 AB [id number]) Orientation Orientation/Cognition Level of Alertness Alert Orientation Name,Place,Situation Safety Awareness Decreased Safety Awareness Gross Range of Motion Lower Extremity ROM Impairments has hip flexor tightness and knee flexor tightness Strength Lower Extremity Strength Hip 3+/5 Knee 3+/5 Coordination Assessment Gross Coordination Gross Coordination Impaired Assessment Coordination 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 Sensation Assessment Sensation Gross Sensation Right LE Impaired,Left LE Impaired Sensation Description Numbness Comments Sensation Comments stated numbness on BLE Muscle Tone Muscle Tone WNL No Muscle Tone Location Bilateral Lower Extremity Type of Tone Hypertonicity Severity of Tone Moderate Manifistation of Tone Fluctuation,Ataxia Comments Muscle Tone Comments also has truncal fluctuating ataxia M6 PT-IP Treatment Start: 07/10/20 10:30 Freq: NEEDED Status: Active Protocol: Document 07/14/20 10:49 SP (Rec: 07/14/20 14:33 SP [id number]) Physical Therapy Treatment Education Education Provided Safety M7 PT-IP Assessment and Plan Start: 07/10/20 10:30 Freq: NEEDED Status: Active Protocol: Document 07/14/20 10:49 SP (Rec: 07/14/20 14:33 SP [id number]) PT Summary Assessment and Plan Potential Rehabilitation Potential Fair Status of Condition at Evaluation Evolving Summary Impairments Pain,ROM,Strength,Balance, Coordination,Sensation,Tone, Cognition,Bed Mobility, Transfers,Gait,Activity Tolerance Progress Towards Goals Progressing Toward Goals,Slow Progress due to Pain,Slow Progress due to Activity Tolerance Assessment Summary Pt required Mod A for supine> sit (states has an overhead rope to use for self mobiltiy at home but refused addition of trapeze for hos bed assist for mobility I assessment this tx) and Min A for trunk support during lateral scoot bed>w/c. Pt states the set up is different at home and requires more support here because of but could have done without me, declined further mobility once in chair. BOTTLING LINE ATTENDANT continuing to recommend SNF or 24/7 assist at home and HHPT for improvement in strength and functional independence. Pt reports can have friends and neighbors help if needs. PT will continue to assess progress. Goals Bed Mobility Goal Standby Assistance Transfer Goal Standby Assistance Days to Meet Goals 5 Frequency of Treatment Frequency Of Treatment Once a Day Treatment Plan Physical Therapy Treatment Plan Bed Mobility Training,Transfer Training,Gait Training, Therapeutic Exercise,Balance Retraining,Post Op Education, Discharge Planning,Hot or Cold Pack,Neuromuscular Re-ed, Coordination Retraining,Manual Therapy Other Recommendations and Next Treatment bed mobility with trapeze, Focus transfers <> w/c. Precautions Other Precautions Left heel ot flat foot weight bearing on splint for transfers. Recommendations To Nursing Amount of Assist Needed 1 Person Assist Discharge Recommendations PT Discharge Recommendations Home vs SNF Transportation Needs at Discharge Private Vehicle,Wheelchair/ Cabulance
[2020-07-14 12:00] VITALS: BP 120/71; PULSE 82; RESP 16; TEMP 36.6; O2SAT 100
[2020-07-14 14:16] LABS: Vancomycin Trough 18.6 ug/mL (10-20)
[2020-07-14] MEDS: VANCOMYCIN TROUGH 1 REQUEST MISC (14:37)
--- NOTE | 2020-07-14 14:58 | CM.DPC ---
Addendum entered by JUVENTINO Vieyra 07/14/20 15:06: ADD: Dr. Worley had placed order for Pall Care Consult this morning after meeting bedside with pt due to his dx and likely ongoing decline with NM dx. SW emailed with [facility] with Dr. Worley's contact info and requested Erlinda call Dr. Worley to discuss further as SW had not spoken directly to Dr. Worley regarding her Pall Care order. Unclear if Pall Care Consult will happen this afternoon. BF Original Note: DCP Cont IV-Abx vs Oral Per Ortho , pt making progress with his amputation wound but still awaiting cultures to determine if IV-Abx vs orals needed at d/c. SW spoke to Ortho RADHA Corrigan and confirmed that Dr. Worley is maintaining very close contact with lab/pathologist multiple times a day as due to pt's medical needs and wound they needed to extend the grow time for the cultures. They are hopeful to get results within the next day or two now. Challenge is that pt has adamantly refused SNF, even if IV-Abx needed. [facility] [place] [facility] provide outpt infusion (based on frequency of dosing) but they need MD information for the doctor following pt after d/c (sounds like it will be ID MD Dr. Macias at [facility]) to confirm privileges at their infusion clinic or set up temporary privileges. Pt has also only been willing yesterday and today to work some with PT/OT and registered sales assistant and has asked not to talk to Care Management/SW until its known what his needs are going to be for discharge. Pt currently open with [facility] and updated clinicals faxed and just need Resume Orders at d/c. Plan: SW to follow closely for final culture results to determine IV-Abx vs orals at d/c and then if pt can realistically d/c home with Resume [facility] and any other needs. JUVENTINO Vieyra
--- NOTE | 2020-07-14 15:28 | PM.CN.PC.1 ---
History of Present Illness Consult details Chief complaint: TRANSMETATARSAL AMPUTATION LEFT FOOT *OPB* Reason for consult: Palliative Medicine Consultation Requesting provider: Katelyn Worley Narrative: Reason for Consultation: Palliative medicine consultation received from Dr. Katelyn Worley regarding this 60M Marc Reis, who was admit to [facility] 07/12/2020 for an elective surgery partial left foot amputation. Patient was admit previously to [facility] for debridement and partial amputation of first metatarsal of his left great toe due to osteomyelitis at the end of April,. He has since been followed closely by infectious disease (Dr. Macias) and orthopedic surgery, and been on courses of oral and IV antibiotics. At a post op appointment with his surgeon 07/06/2020, Dr. Worley and the patient determined the wound at his left medial foot was not healing well despite optimal antibiotic treatments and wound care, his other 4 toes also suffer from poor circulation, and that he would require transmetatarsal amputation left foot. 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 On the same day, the patient underwent a transmetatarsal amputation of his left foot with tendo achilles lengthening of the left ankle. Per the surgeon, she believes she was able to get clean margins with the amputation and if so, won't require keno terminal operator IV antibiotics, but this is currently unconfirmed. If care home antibiotics are required, it has been recommended that the patient consider discharge to a fpc facilty for this therapy, which he has declined adamantly. Patient has stabilized in his blood sugars and medicine has signed off of his case. He continues on Maxipine 2 grams q 8 hours and Vancomycin per renal dosing. Case management has been pursuing Past Medical History: Friedreich ataxia, type 2 diabetes (poorly controlled), venous stasis, Arthritis, Chronic pain, Depression, Hyperlipidemia, osteomyelitis, osteoporosis, scoliosis, status post transmetatarsal amputation of left foot Social History: The patient is a single gentleman who lives in [place] [place] in a home provided by a friend on [facility]. He is close with his sisters who visit often from the [facility], Corrie Belle, Ana Maria Reynoso, Theodore Ordonez, and Shelbie Whitney. He has not children. Patient was diagnosed with Friedreich Atakia per symptoms in 1990. The diagnosis was confirmed with genetic testing in 1997. Patient states that he has outlived my diagnosis and that he is tired of fighting it. 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 He was thrilled at seeing the changes in the bottom of the ocean across the planet, and endured years of pain from falls and subsequent fractures (ribs, toes) in order to continue working on the boat, which he hid from his colleagues in order to continue working. He has been wheelchair bound from his disease now for the past 15 years. He built a wooden sailboat and states that he loves sailing, as he can fly, and not be tied to the wheelchair in his mind. He lives on [facility] on [facility], and his world is the forest and the sea outside his window. He is a self described environmentalist, and I don't care much for humans, really. He enjoys writing, though he describes as his disease progresses, the use of a typewriter and computer have become increasingly difficult for him. He lives independently in a home and would like to continue sailing for as long as possible. In addition to his lifelong passion for sailing, patient used to enjoy hiking, which he did every other day. He noticed if he did not hike and exercise regularly, he sustained substantial loss of function, which spurred him to continue hiking despite frequent falls. It has been a blow that he hasn't been able to hike since becoming wheelchair bound 15 years ago. Patient was in a skilled nursing after his April hospitalization for 6 weeks, and has vowed not to return. States that he would rather than be in a skilled nursing again. Loss of independence is described as the worst part of the experience for him. It affected him so much that he immediately went home and started looking at completing Advance Directives. He most trusts his friend Paola Watts to make medical decisions for him should he become incapacitated. He has not completed his DPAHC as of yet. Patient reports he has been cared for by [facility] in his home, enduring PT and speech therapy to treat his ongoing dysphagia/high risk for aspiration. He reports he feels more aware of his need to concentrate on swallowing, but that he knows I'm aspirating sometimes. He reports he was treated for bronchitis last year, but has not been treated previously for aspiration pneumonia to his knowledge. Patient reports that a very good friend of his who live in the same house as he last year spinal cancer. He reports that his friend attempted to get permission from her provider in [place] for physicians assisted suicide, with her father in attendance. He describes her as peaceful, and for him, a good experience. Because of the patient's profound general decline in clinical status over months and given the possibility of an underlying, incurable medical illness, the medical team is of the belief that life expectancy is limited to months to years, and has requested clarification of this gentleman's specific medical goals. I have reviewed the medical record, radiographs, diagnostics, attempted to interview the patient (disoriented, no registration) and subsequently interviewed the patient DPOAHC. The following aspects are pertinent, current and remote medical history, social/emotional and family dynamics, current medications and effects, ROS, examination findings, prognosis, care planning, goal setting. Meds Home Medications and Allergies Home Medications Medication Instructions Recorded Confirmed Type Basaglar KwikPen U-100 Insulin 32 unit SUBCUT DAILY 04/29/20 07/09/20 History duloxetine 30 mg PO QAM 04/29/20 07/09/20 History insulin aspart U-100 [Novolog See Rx Instructions .ROUTE .COMPLEX 04/29/20 07/09/20 History Flexpen U-100 Insulin] metformin 1,000 mg DIRECTED 04/29/20 07/09/20 History oxycodone 5 mg TID 04/29/20 07/08/20 History pravastatin 20 mg PO BEDTIME 04/29/20 07/09/20 History gabapentin [Neurontin] 300 mg PO TID #30 cap 05/04/20 07/09/20 Rx oxycodone 5 mg PO Q4HR PRN #20 tab 05/04/20 07/09/20 Rx aspirin 81 mg PO DAILY #90 tab 07/15/20 Rx baclofen 10 mg PO TID #60 tab 07/15/20 Rx oxycodone 5 mg PO Q3HR PRN #60 tab 07/15/20 Rx Allergies Allergy/AdvReac Type Severity Reaction Status Date / Time acetaminophen AdvReac Severe crawl out Verified 07/09/20 11:43 of my skin lisinopril AdvReac Unknown Cough Verified 07/09/20 11:43 amitriptyline AdvReac Nausea Verified 07/09/20 11:49 Review of Systems Constitutional Constitutional: Reports as per HPI Exam Vital Signs (past 8 hours): - 07/14/20 12:00 Temperature 97.8 F Pulse Rate 82 Respiratory Rate 16 Blood Pressure 120/71 Pulse Oximetry 100 Oxygen Delivery Method Room Air Oxygen Flow Rate 0 Narrative Exam Narrative: 60M pleasant, engaging gentleman sits up in his electric wheelchair at bedside today. Patient has some mild degree of impaired, slowed speech and spastic muscles but is independent in setting his wheelchair up for charging. He consents to this dialogue regarding palliative medicine today. Left foot bandaged with BROOKE wrap s/p partial amputation of foot. Resp Effort & Inspection: normal respiratory effort and able to speak in complete sentences Psych Appearance: grossly normal and well kempt Mental Status: mental status grossly normal Speech and Movement: speech and movement normal Mood: congruent mood Affect: normal affect Attitude: cooperative Thought Process: normal Thought Content: normal Judgment: judgment good Objective Labs Result Diagrams: 07/11/20 05:15 07/13/20 05:15 Labs: Laboratory Results - last 24 hr 07/14/20 13:40 Vancomycin Trough 18.6 Assessment & Recommendations A & R narrative: Discussion: Very engaging, pleasant gentleman is visited at bedside today. The patient is very informed about his chronic, life limiting disease and reports he feels he has overlived his prognosis, having been diagnosed with Friedreich ataxia 35 years ago. He places a high priority on his independence and in living in a home, surrounded by nature. He confirms his desire to avoid SNF at all cost, and is encouraged to consider making medical decisions ahead of time for himself, keeping this in mind. He has Advance Directives at home and our conversation today centers on who he most trusts to make medical decisions for him should he become incapacitated. Though he loves his sisters, he feels they do not know him as well as his friend Paola Wtats does, and for this reason, he feels she is the best person to serve as his power of manufacturing engineering technologist for healthcare. He is provided a copy of an Advance Directive to look over, offered to help him complete this information today. Patient declines, preferring to go over the documents himself. He is encouraged to consider his code status carefully as he contemplates the future; patient seems to understand that batool aspiration and aspiration pneumonia are inevitable, and that he will likely succumb to either pneumonia or a urinary tract infection/sepsis in the future. He would like time to review the handouts provided, including the [place] POLST and the information from a local community based hospice agency. Updated the medical team regarding the outcome of this palliative medicine consutation. Thank you for allowing palliative medicine to be involved in this delightful gentleman's case while here at [facility]. We will follow expectantly. Recommendations: - Maintain FULL CODE in patient's EMR unless patient indicates otherwise - Recommend arrangements for outpatient antibiotic infusion versus infusion in the home setting with fpc, if available - Pt is encouraged to discuss Physician's Assisted Suicide with his primary provider if he is considering this option for the future - Pt encouraged to consider engaging hospice services if available on the [place] where he lives if the only option for him is to have keno terminal operator IV antibiotics in a skilled nursing, which he has stated is repugnant a option for him. Coding: - Osteomyelitis left foot - s/o metatarsal amputation - Pain - NIDDM - on sliding scale with daily Lantus - HLD - Friedreich ataxia - Palliative Medicine Consultation Coding: To remain informed regarding current treatment opportunities, provider reviewed extensive additional documentation of multiple treatment providers/facilities which was utilized to update the management plan. Total time in review of additional medical information is 32 minutes, external to in person evaluation. Time in assessment and management of acute and chronic medical diagnoses, pertinent history to palliative medicine decision making, discussion and management of clinical findings enumerated above as well as fears regarding the transition to a more end of life plan and and dying is 23 minutes, more than half of which is necessary for education and counseling. Advanced Care Planning discussion time is 17 minutes. The patient currently lacks testamentary documents for estate planning, DPOAHC, lacks POLST and statement of wishes. Dialogue addresses patient preferences at the end/near end of life including resuscitation wishes, and natural consequences of undergoing heroic measures including SNF and reliance on others for self-care. Additional care limits discussed above.
[2020-07-14 16:05] VITALS: BP 139/81; PULSE 84; RESP 20; TEMP 36.4; O2SAT 96
[2020-07-14] MEDS: VANCOMYCIN 1,250 MG/250 ML PIGGYBACK 166.667 MG IV (16:26)
--- NOTE | 2020-07-14 17:06 | PC.NURSE ---
Addendum entered by Peri Gary R.N. 07/14/20 22:49: Blood sugar 129 as checked by pt via pt's implanted monitor LUE. Pt not given any lispro at this time, but 4 units lantus as per pt request. Medicated for LLE pain 6/10. Addendum entered by Peri Gary R.N. 07/14/20 22:47: No witnessed or patient c/o spasms to LLE. Remains up in wheelchair and declines offers for assistance by staff to transfer into bed. Addendum entered by Peri Gary R.N. 07/14/20 18:54: Pt now on Facetime with sister while up in wheelchair. Rates LLE pain 5/10 when asked, but pt is bright and conversant while up in chair. Pt requests 10 units lispro for blood sugar 126. Informed pt per correction orders, no insulin is indicated. Pt reports feels tips of fingertips are tingling and states needs insulin as ate high carb dinner. 10 units lispro was administered per pt request and pt was instructed to monitor blood sugar carefully. Yuki corcoran provided @ pt's bedside in the event blood sugar decreases too quickly. Pain level reassessed using FLACC scale as zero. Brian wrap to LLE dry and intact. Original Note: Pt up in room in wheelchair @ beginning of shift. New IV start for antibiotics per float RNItzel. Palliative GRINDER OPERATOR AUTOMATIC Erlinda Feliciano in to see patient for conversation. IV Vanco hung as per emar with slight delay d/t previous antibiotic and failed iv requiring re-establishment. Pharmacist, Don, was made aware to re-time vanco peak if desired.
[2020-07-14 19:50] LABS: Vancomycin Peak 28.7 ug/mL (20-40)
[2020-07-14 20:15] VITALS: BP 150/86; PULSE 83; RESP 16; TEMP 36.8
[2020-07-14] MEDS: PRAVASTATIN 20 MG TABLET PO (21:21)
[2020-07-15] VITALS: BP 128/80; PULSE 78; RESP 18; TEMP 36.7; O2SAT 95
[2020-07-15] MEDS: OXYCODONE IR 10 MG TABLET PO ×2 (00:10→08:23)
[2020-07-15] MEDS: VANCOMYCIN 1,250 MG/250 ML PIGGYBACK 166.67 MG IV (00:11)
[2020-07-15 04:00] VITALS: BP 138/78; PULSE 70; RESP 18; TEMP 36.7; O2SAT 99
[2020-07-15] MEDS: CEFEPIME 2 GM in SODIUM CHLORIDE 0.9% 100 ML 200 ML IV (06:03)
[2020-07-15] MEDS: VANCOMYCIN 1,250 MG/250 ML PIGGYBACK 167 MG IV (06:55)
[2020-07-15 08:00] VITALS: BP 128/73; PULSE 79; RESP 16; TEMP 36.6; O2SAT 97
[2020-07-15] MEDS: DULOXETINE 30 MG CAPSULE PO (08:23)
[2020-07-15] MEDS: HEPARIN 5,000 UNIT/ML VIAL 5000 UNIT SUBCUT (08:23)
[2020-07-15] MEDS: DOCUSATE 100 MG CAPSULE PO (08:23)
[2020-07-15] MEDS: BACLOFEN 10 MG TABLET PO (08:23)
[2020-07-15] MEDS: GABAPENTIN 300 MG CAPSULE PO (08:23)
[2020-07-15] MEDS: INSULIN GLARGINE 100 UNIT/ML 3ML PEN 25 UNIT SUBCUT (08:24)
[2020-07-15] MEDS: INSULIN LISPRO 100 UNIT/ML 3ML VIAL SUBCUT (08:26)
--- NOTE | 2020-07-15 08:28 | OT.IP.TRT ---
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 (07/09/20) Subacute osteomyelitis, left ankle and foot (07/09/20) Unsteadiness on feet (07/09/20) Surgery Performed Operation Date: 07/09/20 13:30 Actual Procedures p transmetatarsal amputation foot(Left) - Katelyn Worley MD Occupational Therapy Treatment Note M2 OT-IP Current Condition Start: 07/14/20 09:09 Freq: Status: Active Protocol: Document 07/14/20 09:05 [facility] (Rec: 07/14/20 09:33 [facility] [id number]) Occupational Therapy Current Condition Current Condition Evaluation Date 07/14/20 Treatment Diagnosis s/p Left transmetatarsal ampulation, decreased mobility . Diagnosis Onset Date 07/09/20 Post Operative Precautions Other Precautions Left heel to flat foot weight bearing on splint for transfers. Weight Bearing Status Weight Bearing Status Weight Bear as Tolerated M3 OT- IP Subjective and Pain Start: 07/14/20 09:09 Freq: Status: Active Protocol: Document 07/15/20 08:20 [facility] (Rec: 07/15/20 10:35 [facility] [id number]) OT- Subjective Occupational Therapy Visit Type Type Treatment Note Visit Start Time 08:20 Visit Stop Time 08:28 Total Visit Minutes 8 Occupational Therapy Visit Comments Patient Comments Pt not wanting to get up at this time. Patient/Caregiver Goals Pt wanting to go home. OT Pain Assessment Pain When Pain Assessed At Rest Pain Present Pain Present Denied Pain M5 OT- IP IADL's Start: 07/14/20 09:09 Freq: Status: Active Protocol: Document 07/14/20 09:05 [facility] (Rec: 07/14/20 09:33 [facility] [id number]) OT-Instrumental Activities of Daily Living Home Safety Awareness Awareness of Need for Assistance at Home Good Awareness Meal Preparation Meal Preparation Comments Pt states kitchen counters as wheelchair accessible. Medical Liaison Medical Liaison Comments Pt states use of lap tray attached to his wc to move items around. Driving Driving Comments Pt use of his power chair or use of Senior Van to get to place to place. M6 OT- IP Functional Cognition Start: 07/14/20 09:09 Freq: Status: Active Protocol: Document 07/15/20 08:20 [facility] (Rec: 07/15/20 10:35 [facility] [id number]) Cognitive Factors Limiting Selfcare Function Cognitive Ability Level of Alertness Alert Patient Orientation Name,Age,Birthday,Month,Date, Year,Day of Week,Place, Situation Attention Span Ability Capable of Focused Attention, Capable of Sustained Attention Ability to Follow Commands Able to Follow One Step Commands Memory Description Short Term Impaired Cognitive Comments Cognitive Assessment Comments Pt did not remember the conversation with OT yesterday . Pt admits that he has to write things down often for himself. Reminded pt to ask his home health OT to come up with ways to assist to help get his compression stocking better. For example, to place a strap on his wc to help hold his leg in place so his is able to use both hands to get on his stockings M7 OT- IP Mobility and Balance Start: 07/14/20 09:09 Freq: Status: Active Protocol: Document 07/14/20 09:05 [facility] (Rec: 07/14/20 09:33 [facility] [id number]) OT-Transfer Assessment Comments Mobility Comments NOt wanting to get up at this time. M8 OT- IP Objective Assessments Start: 07/14/20 09:09 Freq: Status: Active Protocol: Document 07/14/20 09:05 [facility] (Rec: 07/14/20 09:33 [facility] [id number]) OT Gross Range of Motion Upper Extremity Range of Motion Assessment Within Functional Limits OT Strength Upper Extremity Strength Assessment Within Functional Limits Comments Strength Comments Pt given therabands to work on while in the hospital to help maintain his UE strength. OT-Muscle Tone Assessment Comments Muscle Tone Comments Pt ataxic movements for BUE. M9 OT- IP Assessment and Plan Start: 07/14/20 09:09 Freq: Status: Active Protocol: Document 07/15/20 08:20 [facility] (Rec: 07/15/20 10:35 [facility] [id number]) OT Summary Assessment and Plan Potential Rehabilitation Potential Good Analytic Complexity at Evaluation Low Summary Progress Towards Goals Progressing Toward Goals Assessment Summary Pt looking to go home today and resume home health . Treatment Plan OT Treatment Plan ADL Training,Functional Cognition Training,Functional Mobility,Patient/Family Education,Discharge Planning Discharge Recommendations OT Discharge Recommendations Home with Assistance,Home Health Transportation Needs at Discharge Wheelchair/Cabulance
--- NOTE | 2020-07-15 09:58 | P.PN_ITS ---
Subjective Subjective Date Patient Seen: 07/15/20 Time Patient Seen: 09:58 Interval history: Patient states he is doing well and is in minimal discomfort at rest. At this time he denies fever, chills, nausea, chest pain, shortness of breath, or urinary retention. He states he occasionally will get a shooting pain in the left lower extremity. Exam Vital Signs (past 8 hours): - 07/15/20 04:00 07/15/20 08:00 Temperature 98.0 F 97.8 F Pulse Rate 70 79 Respiratory Rate 18 16 Blood Pressure 138/78 128/73 Pulse Oximetry 99 97 Oxygen Delivery Method Room Air Oxygen Flow Rate 0 Narrative Exam Narrative: 60-year-old male postop day 6 status post left transmetatarsal foot amputation. Patient is resting comfortably in bed, is in no acute distress, is alert and oriented x3. Left lower extremity in cast in bandage with Brian wrap. Good sensation appreciated in the bilateral thighs. Patient notes decreased sensation to light touch just distal to the left knee and extending down into the midfoot. Patient also notes decreased sensation to light touch in the right leg the distal half of the extremity extending to the dorsal aspect of the foot. Hypersensitivity noted to light touch on the plantar aspect of the right foot. Poorly healing scars and lesions in the bilateral low er extremities. Right 2nd toe with a lesion on the dorsal aspect with surrounding erythema. Calves are nontender, negative Homans sign. Const General: cooperative and comfortable Resp Effort & Inspection: normal respiratory effort and able to speak in complete sentences Objective Labs Result Diagrams: 07/11/20 05:15 07/13/20 05:15 Labs: Laboratory Results - last 24 hr 07/14/20 07/14/20 13:40 19:08 Vancomycin Peak 28.7 Vancomycin Trough 18.6 PFSH Medical History Arthritis Chronic pain Depression Friedreich ataxia HLD (hyperlipidemia) Osteomyelitis Osteoporosis Scoliosis Type 2 diabetes mellitus Venous stasis Surgical History History of surgery (04/30/20) No pertinent past surgical history Status post transmetatarsal amputation of left foot Social History household members: none Smoking Status: Current every day smoker alcohol intake: current Assessment & Plan Post-op Postoperative Procedures: Procedures Operation Date: 07/09/20 13:30 Actual Procedures Side Surgeon p transmetatarsal amputation foot Left Katelyn Worley MD Postoperative status: doing well Postoperative plan narrative: Current pain management regimen is to be continued as it is adequately controlled the patient's pain level at this time. We will consult with social work to determine best option for the patient in terms of antibiotic regimen. Patient would prefer to undergo IV antibiotic treatment back home on Sunday. Time Spent With Patient Time with patient: 15-24 minutes Quality VTE Deep Vein Thrombosis/Pulmonary Embolism Present on Admission: No
--- NOTE | 2020-07-15 10:30 | PT.IPTN ---
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 (07/09/20) Subacute osteomyelitis, left ankle and foot (07/09/20) Unsteadiness on feet (07/09/20) Surgery Performed Operation Date: 07/09/20 13:30 Actual Procedures p transmetatarsal amputation foot(Left) - Katelyn Worley MD Physical Therapy Treatment Note M2 PT-IP Current Condition Start: 07/10/20 10:30 Freq: NEEDED Status: Active Protocol: Document 07/13/20 10:23 AB (Rec: 07/13/20 11:53 AB [id number]) Physical Therapy Current Condition Current Condition Evaluation Date 07/13/20 Treatment Diagnosis s/p L transmetatarsal amputation; generalized weakness Onset Date 07/09/20 Precautions Other Precautions per Dr. Amato: L heel or flatfoot weight-bearing on the splint for transfers. Weight Bearing Status Weight Bearing Status Weight Bear as Tolerated Allowed Weight Bearing Amount (enter % L heel or flatfoot weight- or #) (%) bearing on the splint for transfers M3 PT-IP Subjective Start: 07/10/20 10:30 Freq: NEEDED Status: Active Protocol: Document 07/15/20 10:02 CLB (Rec: 07/15/20 12:11 CLB [id number]) Subjective Physical Therapy Visit Type Type Treatment Note Visit Start Time 10:02 Visit Stop Time 10:30 Total Visit Minutes 28 Number of UNLOADER OPERATOR Visits 2 Physical Therapy Visit Comments Patient Comments Pt refused transfer but wanted to do stretching in bed. M4 PT-IP Mobility and Gait Start: 07/10/20 10:30 Freq: NEEDED Status: Active Protocol: Document 07/15/20 10:02 CLB (Rec: 07/15/20 12:11 CLB [id number]) PT-Bed Mobility Assessment Rolling Level of Assist Contact Guard Assistance PT-Transfer Assessment Comments Mobility Comments Pt refused transfer but requested stretches in bed. Completed sidelying LE stretching to extension and supine hamstrings stretches and ankle DF stretching. Pt left in bed with alarm on and all needs within reach. PT-Balance Assessment Sitting Balance and Reactions Static Sitting Balance Ability Fair Dynamic Sitting Balance Ability Fair Standing Balance and Reactions Device Used n/t M5 PT-IP Objective Assessments Start: 07/10/20 10:30 Freq: NEEDED Status: Active Protocol: Document 07/13/20 10:23 AB (Rec: 07/13/20 11:53 AB [id number]) Orientation Orientation/Cognition Level of Alertness Alert Orientation Name,Place,Situation Safety Awareness Decreased Safety Awareness Gross Range of Motion Lower Extremity ROM Impairments has hip flexor tightness and knee flexor tightness Strength Lower Extremity Strength Hip 3+/5 Knee 3+/5 Coordination Assessment Gross Coordination Gross Coordination Impaired Assessment Coordination 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 Sensation Assessment Sensation Gross Sensation Right LE Impaired,Left LE Impaired Sensation Description Numbness Comments Sensation Comments stated numbness on BLE Muscle Tone Muscle Tone WNL No Muscle Tone Location Bilateral Lower Extremity Type of Tone Hypertonicity Severity of Tone Moderate Manifistation of Tone Fluctuation,Ataxia Comments Muscle Tone Comments also has truncal fluctuating ataxia M6 PT-IP Treatment Start: 07/10/20 10:30 Freq: NEEDED Status: Active Protocol: Document 07/15/20 10:02 CLB (Rec: 07/15/20 12:11 CLB [id number]) Physical Therapy Treatment Other Treatments Other Treatment Performed supine LE stretching conducted M7 PT-IP Assessment and Plan Start: 07/10/20 10:30 Freq: NEEDED Status: Active Protocol: Document 07/15/20 10:02 CLB (Rec: 07/15/20 12:11 CLB [id number]) PT Summary Assessment and Plan Potential Rehabilitation Potential Fair Status of Condition at Evaluation Evolving Summary Impairments Pain,ROM,Strength,Balance, Coordination,Sensation,Tone, Cognition,Bed Mobility, Transfers,Gait,Activity Tolerance Assessment Summary Pt in non ambulatory and refused transfer, stretching in bed was performed. Pt refuses SNF rehab and pt plans to d/c home with assist of friends and HH. Goals Bed Mobility Goal Standby Assistance Transfer Goal Standby Assistance Days to Meet Goals 5 Frequency of Treatment Frequency Of Treatment Once a Day Treatment Plan Physical Therapy Treatment Plan Bed Mobility Training,Transfer Training,Gait Training, Therapeutic Exercise,Balance Retraining,Post Op Education, Discharge Planning,Hot or Cold Pack,Neuromuscular Re-ed, Coordination Retraining,Manual Therapy Precautions Other Precautions Left heel ot flat foot weight bearing on splint for transfers. Recommendations To Nursing Amount of Assist Needed 1 Person Assist Discharge Recommendations PT Discharge Recommendations Home vs SNF Transportation Needs at Discharge Private Vehicle,Wheelchair/ Cabulance
--- NOTE | 2020-07-15 11:01 | P.DS_ITS ---
History of Present Illness History of Present Illness Date Patient Seen: 07/15/20 Time Patient Seen: 11:01 Chief complaint: TRANSMETATARSAL AMPUTATION LEFT FOOT *OPB* Narrative: Refer to previous HPI. Discharge Providers Provider Date of admission: 07/09/20 10:52 Discharge Date: 07/15/20 Primary care physician: Rhianna Scanlon MD Consults: 07/09/20 09:40 Consult to Anesthesiology Routine Comment: Consulting Provider: Anesthesiologist Reason for consultation: Post operative pain managment Has provider been notified: No 07/09/20 19:21 Consult to Discharge Planning Routine Comment: abx plan (no SNF)- liklely weekly infusions Consult to Hospitalist Service Routine Comment: Consulting Provider: Brittney Delgadillo Reason for consultation: chaya Has provider been notified: Yes Consult to Physical Therapy Evaluate & Treat Comment: heel/flat on LLE for transfers. Physician Instructions: Evaluate and Treat Consult to Respiratory Therapy Evaluate & Treat Comment: Physician Instructions: Evaluate and treat 07/09/20 19:37 Consult to Dietitian, Adult Routine Comment: Reason For Exam: chair/bed bound 07/13/20 14:55 Consult to Occupational Therapy Evaluate & Treat Comment: Physician Instructions: Evaluate and treat 07/14/20 08:02 Consult to Palliative Care Urgent Comment: Consulting Provider: Erlinda Feliciano 07/14/20 08:40 Consult to Dietitian, Adult Routine Comment: Reason For Exam: dietary collaboration Discharge provider: Yayo Coffey PA-C Summary Hospital Course Discharge Diagnosis: 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 Following the procedure the patient has been convalescing appropriately and his pain has been managed with his current pain management regimen. Splint and dressing over the operative area has remained intact following surgery. Throughout the course of his stay in the hospital the patient has denied fever, chills, nausea, chest pain, shortness of breath, or urinary retention. Patient has remained left heel or flatfoot weight-bearing on splint for transfers. Status at Discharge Cognitive/behavioral status at discharge: oriented Functional status at discharge: uses cane/walker Overall status at discharge: patient is progressing back to baseline Exam Vital Signs (past 8 hours): - 07/15/20 04:00 07/15/20 08:00 Temperature 98.0 F 97.8 F Pulse Rate 70 79 Respiratory Rate 18 16 Blood Pressure 138/78 128/73 Pulse Oximetry 99 97 Oxygen Delivery Method Room Air Oxygen Flow Rate 0 Narrative Exam Narrative: 60-year-old male postop day 6 status post left transmetatarsal foot amputation. Patient is resting comfortably in bed, is in no acute distress, is alert and oriented x3. Left lower extremity in cast in bandage with Brian wrap. Good sensation appreciated in the bilateral thighs. Patient notes decreased sensation to light touch just distal to the left knee and extending down into the midfoot. Patient also notes decreased sensation to light touch in the right leg the distal half of the extremity extending to the dorsal aspect of the foot. Hypersensitivity noted to light touch on the plantar aspect of the right foot. Poorly healing scars and lesions in the bilateral lower extremities. Right 2nd toe with a lesion on the dorsal aspect with surrounding erythema. Calves are nontender, negative Homans sign. Const General: cooperative and comfortable Resp Effort & Inspection: normal respiratory effort and able to speak in complete sentences Objective Labs Result Diagrams: 07/11/20 05:15 07/13/20 05:15 Labs: Laboratory Results - last 24 hr 07/14/20 07/14/20 13:40 19:08 Vancomycin Peak 28.7 Vancomycin Trough 18.6 PFSH Medical History Arthritis Chronic pain Depression Friedreich ataxia HLD (hyperlipidemia) Osteomyelitis Osteoporosis Scoliosis Type 2 diabetes mellitus Venous stasis Surgical History History of surgery (04/30/20) No pertinent past surgical history Status post transmetatarsal amputation of left foot Social History household members: none Smoking Status: Current every day smoker alcohol intake: current Discharge Assessment & Plan Assessment and Plan Assessment: Patient is doing well and is stable. Plan of Treatment: Patient is to remain left heel or flatfoot weight-bearing on splint for transfers. Transfers on splint ok. First fall appt in clinic is scheduled for 6/23 at 11:20 with ortho. Patient has progressive nm disease - had pallative care consult for planning. Current pain management regimen is to be continued as it is adequately controlled his pain level. Patient is to begin aspirin 81 m g twice daily for 6 weeks following discharge from hospital. Patient is to contact clinic with any concerns or questions. Any signs of increased redness, swelling, warmth, pain, or discharge from around the operative site should be reported to the clinic. Discharge Plan Discharge Plan Patient Disposition: Home Provider Discharge Comment: Patient cleared for discharge. Discharge orders & Medications Prescriptions: New baclofen 10 mg Tablet 10 mg PO TID Qty: 60 RF: 0 oxycodone 5 mg Tablet 5 mg PO Q3HR PRN (Reason: Pain, Moderate (4-6)) Qty: 60 RF: 0 aspirin 81 mg tablet,delayed release (DR/EC) 81 mg PO DAILY Qty: 90 RF: 0 Continued oxycodone 5 mg tablet 5 mg TID RF: 0 insulin aspart U-100 [Novolog Flexpen U-100 Insulin] 100 unit/mL (3 mL) insulin pen See Rx Instructions .ROUTE .COMPLEX RF: 0 duloxetine 30 mg capsule,delayed release(DR/EC) 30 mg PO QAM RF: 0 Basaglar KwikPen U-100 Insulin 100 unit/mL (3 mL) insulin pen 32 unit SUBCUT DAILY RF: 0 pravastatin 20 mg tablet 20 mg PO BEDTIME RF: 0 metformin 1,000 mg tablet 1,000 mg DIRECTED RF: 0 gabapentin [Neurontin] 300 mg Capsule 300 mg PO TID Qty: 30 RF: 0 oxycodone 5 mg Tablet 5 mg PO Q4HR PRN (Reason: Pain, Moderate (4-6)) Qty: 20 RF: 0 Follow up/Referrals: Rhianna Scanlon MD [Primary Care Provider] - Diet/Activity/Treatments Diet: Diet as Tolerated Skin/Wound/Dressing Care Report to your healthcare provider any signs of infection, such as:: chills, fever, night sweats, increased pain, unusual drainage and unusual redness Dressing: Dressing splint in bandage is to remain intact. Visit Report/Discharge Packet Instructions: DI for Toe Amputation, DI for Prescription Opioid Use, Oxycodone, Baclofen Stand Alone Forms: Surgery Discharge Discharge Data Primary Care Provider: Rhianna Scanlon VTE Deep Vein Thrombosis/Pulmonary Embolism Present on Admission: No
--- NOTE | 2020-07-15 11:34 | CM.DPNOTE ---
DC Note Reviewed chart. Met w/patient and Ortho RADHA Zee at patient's bedside to review plan, then discussed DCP w/Dr Worley this morning. Plan: DC home today w/no need for ongoing IV abx. Close outpatient f/u recommended.. Ortho PA updated and will discuss w/ DR Worley ( DC Rx etc). DC order for home in place Discussed transportation w/patient- patient has his motorized w/c in the room, he plans to roll down to [facility] main entrance, [place] (no priority board needed). Patient will have friend or island transport get him home once in Sunday. Patient appreciative of this SENIOR PAINTER's visit. [facility] updated w/this information. Updated [facility] and requested resumption of services, e faxed DC Summary JW
--- NOTE | 2020-07-15 13:33 | CM.DPNOTE ---
Faxed recent nursing notes from 07/12 to present to [facility] at their request. Received fax confirmation. Shaye López CM Asst.
[2020-07-15 14:06] VITALS: BP 138/59; PULSE 94; TEMP 37.4
--- NOTE | 2020-07-15 14:28 | PC.NURSE ---
Discharge note: Patient discharge per Ortho order, discussed importance of F/U with Ortho on 07/26 as scheduled. Discussed importance of medication adherence, dressing care, s/sx of infections, and home safety. Discharge to [facility], patient to fiber picker Rx as coordinated by Pharmacist at [place]. Home via motorized wheelchair (personal) and all belongings, including discharge information.
== END 2020-07-15 14:31 | disposition home health service (06) | DRG 617 ==
LOC: OR 10:54 → AC 10:54
PROVIDERS: Internal Medicine; Nurse Practitioner Family; Admitting Provider Orthopaedic Surgery Foot and Ankle Surgery; PCP Family Medicine; Referring Provider Orthopaedic Surgery Foot and Ankle Surgery; Visit Provider Orthopaedic Surgery Foot and Ankle Surgery
PROC: 0Y6N0Z9 Detachment at Left Foot, Partial 1st Ray, Open Approach (ICD-10-PCS; principal; 2020-07-09 13:30)
DX: E11.621 Type 2 diabetes mellitus with foot ulcer (principal); M86.172 Other acute osteomyelitis, left ankle and foot; G11.11 Friedreich ataxia; E11.69 Type 2 diabetes mellitus with other specified complication; L97.524 Non-pressure chronic ulcer of other part of left foot with necrosis of bone; E11.40 Type 2 diabetes mellitus with diabetic neuropathy, unspecified; M67.02 Short Achilles tendon (acquired), left ankle; F32.9 Major depressive disorder, single episode, unspecified; G89.29 Other chronic pain; Z20.822 Contact with and (suspected) exposure to COVID-19; Z79.4 Long term (current) use of insulin
CPT/HCPCS: 36415; 80053; 80069; 80202; 82565; 82962; 83036; 84132; 85027; 87070; 87075; 87077; 87101; 87116; 87176; 87186; 87205; 87206; 87635; 97110; 97162; 97166; 97530; 97542; 99233; 99497; C9803; J0692; J0878; J1170; J1644; J1815; J2405; J2704

== ENCOUNTER 2020-11-12 11:25 | Day surgery (SDC) | payer MEDICARE, SELFPAY ==
[2020-07-09 19:24] VITALS: BMI 26.6
[2020-11-09 14:07] VITALS: BMI 27.3
[2020-11-12] VITALS (7 sets, daily range): BP systolic 90–133; BP diastolic 66–89; PULSE 83–88; RESP 12–16; TEMP 36.2–36.4; O2SAT 95–100; BMI 27.3
--- NOTE | 2020-11-12 12:12 | PM.PREOP ---
Pre-operative Note COVID-19 COVID-19 status: Result pending Result date/Date tested (Pos, Neg/Pending): 11/12/20 Interval Note History & Physical reviewed/Exam performed by Physician: Yes Changes to H&P: No
[2020-11-12 12:17] LABS: COVID19 -Nasal RAPID Negative (Negative)
[2020-11-12] MEDS: CEFAZOLIN 1 GM VIAL 2 GM IV (13:30)
--- NOTE | 2020-11-12 13:45 | SUR.OPER ---
Supine on padded OR bed, head on pillow, arms secured on padded arm boards at <90 degrees abduction, legs uncrossed, safety belt at thigh, tape over blanket over lower legs.
[2020-11-12] MEDS: EPINEPHrine 1 MG/ML SUBCUT (13:54)
[2020-11-12] MEDS: BUPIVACAINE 0.25% (PF) VIAL 30 ML INJ (13:54)
--- NOTE | 2020-11-12 14:28 | PM.OP.1 ---
Operative Date/Time/Diagnoses Date of procedure: 11/12/20 Time of procedure: 13:45 Pre-op diagnosis: Postoperative wound dehiscence left tarsometatarsal amputation stump T81.31XD Friedreich's ataxia Diabetes Post-op diagnosis: same Procedure & Clinicians Procedure: Revision left tarsometatarsal amputation stump CPT code 31173 Same procedure as scheduled: Yes Indications: Patient is a 60-year-old male with multiple medical comorbidities including Friedreich's ataxia, diabetes. He has a history of a nonhealing ulcer that started at his 1st metatarsal and developed into ulcerations and osteomyelitis. He ultimately underwent a tarsometatarsal amputation on the left side. Postoperatively at the central area of the stump he had wound dehiscence. Remainder of the stump healed well. He was treated with wound care and packing changes. This area has failed to heal. There are no current signs of infection or erythema. He has a subcentimeter by subcentimeter hole that is proximally 1/2 to 1 cm deep. No gross purulence. But concern for nonhealing dehiscence. Patient is indicated for revision of the transmetatarsal amputation stump. We discussed risks for need for additional surgery debridement or bone resection. Possible need for infection treatment with antibiotics. Patient understands and agrees with the plan. He has had stagnation of his wound on conservative care. The risks and benefits of the procedure have been discussed with the patient even opportunity to ask questions. The risks of surgery include but are not limited to infection, persistence of pain, damage to nerves and blood vessels, posttraumatic arthritis, DVT, PE, need for additional surgery, amputation, risk of cardiopulmonary complications and . The patient expressed a thorough understanding of the risks and benefits of surgery and has elected to proceed. Consent was signed in the office. Surgeon: Katelyn Worley Click Yes if Unassisted: Yes Anesthesia Type: Sedation and Local Operative Notes Findings: One 7 x 0.7 x 1 cm deep area of dehiscence at the apex of the tarsometatarsal amputation. No surrounding erythema. Mild fibrin is exudate present. No malodor. Area of wound dehiscence was resected. Back to clean margins. Creating an approximately 3 cm elliptical wound. This did track deep almost to the metatarsal resection level which was palpable deep in the wound but not exposed. No tunneling or purulence was encountered. Deep tissues bled briskly. Closure Type: primary Specimen(s): other (Tissue sent for culture and sensitivity) Estimated Blood Loss (mL): 5 Blood products transfused: none Tourniquet time (min): 0 Procedure in detail: Patient was seen in the preoperative area the site of surgery marked informed consent confirmed. He is brought back to the operating room by the anesthesia team positioned supine on the operative table. All bony prominences well padded. Operation was performed under sedation. Attention was turned to the left lower extremity. This was prepped and draped in the standard sterile fashion. Betadine prep was used due to the open wound. Formal time-out procedure was performed confirming the patient's side and site of surgery administration of appropriate preoperative antibiotics and presence of informed consent. All were in agreement. Attention turned to the left leg. The wound dehiscence area was as described above. An elliptical incision including the above day was carried out along the previous a transverse tarsometatarsal amputation stump incision. Was taken down through skin subcutaneous tissues full-thickness excising the tissue. Deep in the wound metatarsal resection level was palpated but not exposed. Rongeur and curettes were used for a debridement of subcutaneous tissue down to the level of bone. The wound was then irrigated with 3 L of saline using a cysto tubing. Once this was completed gloves were changed and a clean rongeur was used to obtain samples from deep in the wound that was sent for culture. Following this the transmetatarsal amputation incision line was then closed deep with 2-0 PDS, skin subcutaneous 4-0 Monocryl, skin 3-0 and 4-0 nylon. Additionally Dermabond was used over the incision. After this dried approximately 5 cc of local anesthetic was infiltrated for postoperative pain control. And a cushion Mepilex type dressing was placed. Patient was woken from anesthesia and taken to the recovery room in good condition. There no immediate complications from this procedure. Complications: none Post-operative Condition: stable Disposition: PACU Plan for aftercare: Heel weight-bearing for transfers on the left foot. A keep pressure off the forefoot area where the dressing and incision are located. Will follow-up cultures. He will follow up in 2 weeks for a wound check. Sutures will stay in 4-6 weeks.
--- NOTE | 2020-11-12 15:09 | SUR.PHASEII ---
Patient needed a fair amount of assistance to get dressed and ready for discharge. Has many disabilities but is independant at home. Had to leave on bus due to sister not having car big enough for his electric wheelchair. Did well after surgery
== END 2020-11-12 15:05 | disposition home or self-care (01) ==
PROVIDERS: PCP Family Medicine; Referring Provider Orthopaedic Surgery Foot and Ankle Surgery; Visit Provider Orthopaedic Surgery Foot and Ankle Surgery
PROC: (CPT 11042; principal; 2020-11-12 14:45)
DX: T87.81 Dehiscence of amputation stump (principal); G11.11 Friedreich ataxia; E11.9 Type 2 diabetes mellitus without complications; Z79.4 Long term (current) use of insulin; Z20.822 Contact with and (suspected) exposure to COVID-19
CPT/HCPCS: 11042; 87070; 87075; 87147; 87186; 87205; 87635; J0171; J0690; J2704

== ENCOUNTER → 2020-12-14 09:51 | Outpatient (CLI) | payer MEDICARE, SELFPAY ==
[2020-07-09 19:24] VITALS: BMI 26.6
== END ==
PROVIDERS: PCP Family Medicine; Referring Provider Family Medicine; Visit Provider Family Medicine
DX: E11.621 Type 2 diabetes mellitus with foot ulcer (principal); Z89.412 Acquired absence of left great toe; Z89.422 Acquired absence of other left toe(s)
CPT/HCPCS: 11042; 73630; 87070; 87075; 87077; 87147; 87186; 87205; 99204; 99214

== ENCOUNTER → 2020-12-14 12:07 | Outpatient (CLI) | payer MEDICARE, SELFPAY ==
[2020-07-09 19:24] VITALS: BMI 26.6
--- NOTE | 2020-12-14 12:09 | DI.RAD.S_ITS ---
PROCEDURE: XR FOOT LT MIN 3V INDICATIONS: LT FOOT/EVALUATE FOR OSTEOMYPELITIS TECHNIQUE: 3 views of the foot were acquired. COMPARISON: [facility], CR, XR FOOT 3 VIEWS WEIGHT BEARING LEFT, 07/06/2020, 13:15. [facility], CR, XR FOOT LT MIN 3V, 04/29/2020, 14:53. FINDINGS: Bones: Previous amputation of the 5 digits from the proximal metatarsal levels. Cortical irregularity and lucency is present involving the distal aspect of the 1st, 2nd, 4th and 5th metatarsal bones at the resection sites where there is adjacent soft tissue swelling and gas. Soft tissues: No tibiotalar joint effusion. Achilles tendon appears normal. IMPRESSION: Interval amputation of the 1st through 5th digits and cortical irregularity and lucencies are present involving multiple metatarsal bones at the amputation site which could represent early osteomyelitis. Dictated by: Teofilo JACINTO Interpreted: Shavonne Ames MD on 12/14/2020 at 14:23 Transcribed by: JOZEF on 12/14/2020 at 14:26 Approved by: Shavonne Ames M.D. on 12/14/2020 at 16:15
== END ==
PROVIDERS: PCP Family Medicine; Referring Provider Family Medicine; Visit Provider Family Medicine
DX: E11.621 Type 2 diabetes mellitus with foot ulcer (principal); Z89.412 Acquired absence of left great toe; Z89.422 Acquired absence of other left toe(s)
CPT/HCPCS: 73630

== ENCOUNTER → 2020-12-22 13:22 | Outpatient (CLI) | payer MEDICARE, SELFPAY ==
[2020-07-09 19:24] VITALS: BMI 26.6
== END ==
PROVIDERS: PCP Family Medicine; Referring Provider Family Medicine; Visit Provider Family Medicine
DX: E11.621 Type 2 diabetes mellitus with foot ulcer (principal); L97.522 Non-pressure chronic ulcer of other part of left foot with fat layer exposed; T81.31XA Disruption of external operation (surgical) wound, not elsewhere classified, initial encounter; Z89.422 Acquired absence of other left toe(s); G11.11 Friedreich ataxia; B95.2 Enterococcus as the cause of diseases classified elsewhere
CPT/HCPCS: 11042; 97605; 99214

== ENCOUNTER → 2021-01-05 10:37 | Outpatient (CLI) | payer MEDICARE, SELFPAY ==
[2020-07-09 19:24] VITALS: BMI 26.6
== END ==
PROVIDERS: PCP Family Medicine; Referring Provider Family Medicine; Visit Provider Family Medicine
DX: E11.621 Type 2 diabetes mellitus with foot ulcer (principal); L97.522 Non-pressure chronic ulcer of other part of left foot with fat layer exposed; T81.31XA Disruption of external operation (surgical) wound, not elsewhere classified, initial encounter; Z89.422 Acquired absence of other left toe(s); G11.11 Friedreich ataxia
CPT/HCPCS: 11042; 97605

== ENCOUNTER → 2021-01-19 10:18 | Outpatient (CLI) | payer MEDICARE, SELFPAY ==
[2020-07-09 19:24] VITALS: BMI 26.6
== END ==
PROVIDERS: PCP Family Medicine; Referring Provider Family Medicine; Visit Provider Family Medicine
DX: E11.621 Type 2 diabetes mellitus with foot ulcer (principal); L97.522 Non-pressure chronic ulcer of other part of left foot with fat layer exposed; T81.31XA Disruption of external operation (surgical) wound, not elsewhere classified, initial encounter; Z89.422 Acquired absence of other left toe(s); G11.11 Friedreich ataxia; L08.9 Local infection of the skin and subcutaneous tissue, unspecified; Z79.4 Long term (current) use of insulin; Z89.412 Acquired absence of left great toe; E11.40 Type 2 diabetes mellitus with diabetic neuropathy, unspecified
CPT/HCPCS: 11042; 87070; 87075; 87077; 87147; 87186; 87205; 99213; 99214

== ENCOUNTER → 2021-02-09 09:53 | Outpatient (CLI) | payer MEDICARE, SELFPAY ==
[2020-07-09 19:24] VITALS: BMI 26.6
== END ==
PROVIDERS: PCP Family Medicine; Referring Provider Family Medicine; Visit Provider Family Medicine
DX: T81.31XA Disruption of external operation (surgical) wound, not elsewhere classified, initial encounter (principal); E11.621 Type 2 diabetes mellitus with foot ulcer; L97.522 Non-pressure chronic ulcer of other part of left foot with fat layer exposed; E11.40 Type 2 diabetes mellitus with diabetic neuropathy, unspecified; G11.11 Friedreich ataxia; Z89.422 Acquired absence of other left toe(s); Z89.412 Acquired absence of left great toe; Z79.4 Long term (current) use of insulin
CPT/HCPCS: 11042

== ENCOUNTER → 2021-02-23 10:27 | Outpatient (CLI) | payer MEDICARE, SELFPAY ==
[2020-07-09 19:24] VITALS: BMI 26.6
== END ==
PROVIDERS: PCP Family Medicine; Referring Provider Family Medicine; Visit Provider Family Medicine
DX: T81.31XA Disruption of external operation (surgical) wound, not elsewhere classified, initial encounter (principal); E11.621 Type 2 diabetes mellitus with foot ulcer; L97.522 Non-pressure chronic ulcer of other part of left foot with fat layer exposed; E11.40 Type 2 diabetes mellitus with diabetic neuropathy, unspecified; G11.11 Friedreich ataxia; Z89.412 Acquired absence of left great toe; Z89.422 Acquired absence of other left toe(s); Z79.4 Long term (current) use of insulin
CPT/HCPCS: 11042; 97605

== ENCOUNTER → 2021-03-16 13:50 | Outpatient (CLI) | payer MEDICARE, SELFPAY ==
[2020-07-09 19:24] VITALS: BMI 26.6
== END ==
PROVIDERS: PCP Family Medicine; Referring Provider Family Medicine; Visit Provider Family Medicine
DX: T81.31XA Disruption of external operation (surgical) wound, not elsewhere classified, initial encounter (principal); E11.621 Type 2 diabetes mellitus with foot ulcer; L97.522 Non-pressure chronic ulcer of other part of left foot with fat layer exposed; E11.40 Type 2 diabetes mellitus with diabetic neuropathy, unspecified; G11.11 Friedreich ataxia; Z89.412 Acquired absence of left great toe; Z89.422 Acquired absence of other left toe(s); Z79.4 Long term (current) use of insulin
CPT/HCPCS: 15275; Q4110

== ENCOUNTER → 2021-03-24 09:23 | Outpatient (CLI) | payer MEDICARE, SELFPAY ==
[2020-07-09 19:24] VITALS: BMI 26.6
== END ==
PROVIDERS: PCP Family Medicine; Referring Provider Family Medicine; Visit Provider Family Medicine
DX: T81.31XA Disruption of external operation (surgical) wound, not elsewhere classified, initial encounter (principal); E11.621 Type 2 diabetes mellitus with foot ulcer; L97.522 Non-pressure chronic ulcer of other part of left foot with fat layer exposed; L08.9 Local infection of the skin and subcutaneous tissue, unspecified; E11.40 Type 2 diabetes mellitus with diabetic neuropathy, unspecified; R60.0 Localized edema; G11.11 Friedreich ataxia; Z89.412 Acquired absence of left great toe; Z89.422 Acquired absence of other left toe(s); Z99.3 Dependence on wheelchair; Z79.4 Long term (current) use of insulin
CPT/HCPCS: 87070; 87075; 87077; 87186; 87205; 99213

== ENCOUNTER → 2021-04-07 13:21 | Outpatient (CLI) | payer MEDICARE, SELFPAY ==
[2020-07-09 19:24] VITALS: BMI 26.6
== END ==
PROVIDERS: PCP Family Medicine; Referring Provider Family Medicine; Visit Provider Family Medicine
DX: T81.31XA Disruption of external operation (surgical) wound, not elsewhere classified, initial encounter (principal); E11.621 Type 2 diabetes mellitus with foot ulcer; L97.522 Non-pressure chronic ulcer of other part of left foot with fat layer exposed; B95.61 Methicillin susceptible Staphylococcus aureus infection as the cause of diseases classified elsewhere; E11.40 Type 2 diabetes mellitus with diabetic neuropathy, unspecified; G11.11 Friedreich ataxia; Z89.422 Acquired absence of other left toe(s); Z89.412 Acquired absence of left great toe; Z99.3 Dependence on wheelchair; Z79.4 Long term (current) use of insulin
CPT/HCPCS: 15275; 97605; 99213; Q4110

== ENCOUNTER → 2021-04-14 11:27 | Outpatient (CLI) | payer MEDICARE, SELFPAY ==
[2020-07-09 19:24] VITALS: BMI 26.6
== END ==
PROVIDERS: PCP Family Medicine; Referring Provider Family Medicine; Visit Provider Family Medicine
DX: T81.31XA Disruption of external operation (surgical) wound, not elsewhere classified, initial encounter (principal); E11.621 Type 2 diabetes mellitus with foot ulcer; L97.522 Non-pressure chronic ulcer of other part of left foot with fat layer exposed; E11.40 Type 2 diabetes mellitus with diabetic neuropathy, unspecified; G11.11 Friedreich ataxia; Z89.422 Acquired absence of other left toe(s); Z89.412 Acquired absence of left great toe
CPT/HCPCS: 15275; 99212; Q4137

== ENCOUNTER → 2021-04-21 08:42 | Outpatient (CLI) | payer MEDICARE, SELFPAY ==
[2020-07-09 19:24] VITALS: BMI 26.6
== END ==
PROVIDERS: PCP Family Medicine; Referring Provider Family Medicine; Visit Provider Family Medicine
DX: T81.31XA Disruption of external operation (surgical) wound, not elsewhere classified, initial encounter (principal); E11.621 Type 2 diabetes mellitus with foot ulcer; L97.522 Non-pressure chronic ulcer of other part of left foot with fat layer exposed; E11.40 Type 2 diabetes mellitus with diabetic neuropathy, unspecified; G11.11 Friedreich ataxia; Z89.422 Acquired absence of other left toe(s); Z89.412 Acquired absence of left great toe; Z99.3 Dependence on wheelchair; Z79.4 Long term (current) use of insulin
CPT/HCPCS: 15275; Q4137

== ENCOUNTER → 2021-04-28 09:35 | Outpatient (CLI) | payer MEDICARE, SELFPAY ==
[2020-07-09 19:24] VITALS: BMI 26.6
== END ==
PROVIDERS: PCP Family Medicine; Referring Provider Family Medicine; Visit Provider Family Medicine
DX: T81.31XA Disruption of external operation (surgical) wound, not elsewhere classified, initial encounter (principal); E11.621 Type 2 diabetes mellitus with foot ulcer; L97.522 Non-pressure chronic ulcer of other part of left foot with fat layer exposed; E11.40 Type 2 diabetes mellitus with diabetic neuropathy, unspecified; G11.11 Friedreich ataxia; Z89.422 Acquired absence of other left toe(s); Z89.412 Acquired absence of left great toe; Z99.3 Dependence on wheelchair; Z79.4 Long term (current) use of insulin
CPT/HCPCS: 11042

== ENCOUNTER → 2021-05-05 09:07 | Outpatient (CLI) | payer MEDICARE, SELFPAY ==
[2020-07-09 19:24] VITALS: BMI 26.6
== END ==
PROVIDERS: PCP Family Medicine; Referring Provider Family Medicine; Visit Provider Family Medicine
DX: T87.81 Dehiscence of amputation stump (principal); E11.621 Type 2 diabetes mellitus with foot ulcer; L97.522 Non-pressure chronic ulcer of other part of left foot with fat layer exposed; L03.116 Cellulitis of left lower limb; E11.40 Type 2 diabetes mellitus with diabetic neuropathy, unspecified; G11.11 Friedreich ataxia; Z89.412 Acquired absence of left great toe; Z89.422 Acquired absence of other left toe(s); Z99.3 Dependence on wheelchair
CPT/HCPCS: 11042; 87070; 87075; 87077; 87147; 87186; 87205; 99214

== ENCOUNTER → 2021-05-12 09:22 | Outpatient (CLI) | payer MEDICARE, SELFPAY ==
[2020-07-09 19:24] VITALS: BMI 26.6
== END ==
PROVIDERS: PCP Family Medicine; Referring Provider Family Medicine; Visit Provider Family Medicine
DX: T87.81 Dehiscence of amputation stump (principal); E11.621 Type 2 diabetes mellitus with foot ulcer; L97.522 Non-pressure chronic ulcer of other part of left foot with fat layer exposed; R60.0 Localized edema; B95.61 Methicillin susceptible Staphylococcus aureus infection as the cause of diseases classified elsewhere; E11.40 Type 2 diabetes mellitus with diabetic neuropathy, unspecified; G11.11 Friedreich ataxia; Z89.412 Acquired absence of left great toe; Z89.422 Acquired absence of other left toe(s); Z99.3 Dependence on wheelchair; Z79.4 Long term (current) use of insulin
CPT/HCPCS: 15275; 99213; Q4110

== ENCOUNTER → 2021-05-24 10:33 | Outpatient (CLI) | payer MEDICARE, SELFPAY ==
[2020-07-09 19:24] VITALS: BMI 26.6
== END ==
PROVIDERS: PCP Family Medicine; Referring Provider Family Medicine; Visit Provider Family Medicine
DX: T87.81 Dehiscence of amputation stump (principal); E11.621 Type 2 diabetes mellitus with foot ulcer; L97.522 Non-pressure chronic ulcer of other part of left foot with fat layer exposed; E11.40 Type 2 diabetes mellitus with diabetic neuropathy, unspecified; G11.11 Friedreich ataxia; Z89.412 Acquired absence of left great toe; Z89.422 Acquired absence of other left toe(s); Z99.3 Dependence on wheelchair
CPT/HCPCS: 15275; Q4110

== ENCOUNTER → 2021-06-09 11:52 | Outpatient (CLI) | payer MEDICARE, SELFPAY ==
[2020-07-09 19:24] VITALS: BMI 26.6
== END ==
PROVIDERS: PCP Family Medicine; Referring Provider Family Medicine; Visit Provider Family Medicine
DX: T87.81 Dehiscence of amputation stump (principal); E11.621 Type 2 diabetes mellitus with foot ulcer; L97.522 Non-pressure chronic ulcer of other part of left foot with fat layer exposed; R60.0 Localized edema; E11.40 Type 2 diabetes mellitus with diabetic neuropathy, unspecified; F11.11 Opioid abuse, in remission; Z89.412 Acquired absence of left great toe; Z89.422 Acquired absence of other left toe(s); Z99.3 Dependence on wheelchair
CPT/HCPCS: 15275; 99212; Q4137

== ENCOUNTER → 2021-06-16 09:54 | Outpatient (CLI) | payer MEDICARE, SELFPAY ==
[2020-07-09 19:24] VITALS: BMI 26.6
== END ==
PROVIDERS: PCP Family Medicine; Referring Provider Family Medicine; Visit Provider Family Medicine
DX: T87.81 Dehiscence of amputation stump (principal); E11.621 Type 2 diabetes mellitus with foot ulcer; L97.522 Non-pressure chronic ulcer of other part of left foot with fat layer exposed; E11.40 Type 2 diabetes mellitus with diabetic neuropathy, unspecified; G11.11 Friedreich ataxia; Z99.3 Dependence on wheelchair; Z89.412 Acquired absence of left great toe; Z89.422 Acquired absence of other left toe(s)
CPT/HCPCS: 15275; Q4137

== ENCOUNTER → 2021-06-23 09:15 | Outpatient (CLI) | payer MEDICARE, SELFPAY ==
[2020-07-09 19:24] VITALS: BMI 26.6
== END ==
PROVIDERS: PCP Family Medicine; Referring Provider Family Medicine; Visit Provider Family Medicine
DX: T87.81 Dehiscence of amputation stump (principal); E11.621 Type 2 diabetes mellitus with foot ulcer; L97.522 Non-pressure chronic ulcer of other part of left foot with fat layer exposed; E11.40 Type 2 diabetes mellitus with diabetic neuropathy, unspecified; G11.11 Friedreich ataxia; Z99.3 Dependence on wheelchair; Z89.412 Acquired absence of left great toe; Z89.422 Acquired absence of other left toe(s)
CPT/HCPCS: 15275; Q4137

== ENCOUNTER → 2021-07-07 09:03 | Outpatient (CLI) | payer MEDICARE, SELFPAY ==
[2020-07-09 19:24] VITALS: BMI 26.6
== END ==
PROVIDERS: PCP Family Medicine; Referring Provider Family Medicine; Visit Provider Family Medicine
DX: T87.81 Dehiscence of amputation stump (principal); E11.621 Type 2 diabetes mellitus with foot ulcer; L97.522 Non-pressure chronic ulcer of other part of left foot with fat layer exposed; E11.40 Type 2 diabetes mellitus with diabetic neuropathy, unspecified; G11.11 Friedreich ataxia; Z89.412 Acquired absence of left great toe; Z89.422 Acquired absence of other left toe(s); Z79.4 Long term (current) use of insulin
CPT/HCPCS: 15275; 99213; Q4137

== ENCOUNTER → 2021-07-13 09:33 | Outpatient (CLI) | payer MEDICARE, SELFPAY ==
[2020-07-09 19:24] VITALS: BMI 26.6
== END ==
PROVIDERS: PCP Family Medicine; Referring Provider Family Medicine; Visit Provider Family Medicine
DX: T87.81 Dehiscence of amputation stump (principal); E11.621 Type 2 diabetes mellitus with foot ulcer; L97.522 Non-pressure chronic ulcer of other part of left foot with fat layer exposed; L92.8 Other granulomatous disorders of the skin and subcutaneous tissue; E11.40 Type 2 diabetes mellitus with diabetic neuropathy, unspecified; G11.11 Friedreich ataxia; Z89.412 Acquired absence of left great toe; Z89.422 Acquired absence of other left toe(s); Z99.3 Dependence on wheelchair; Z79.4 Long term (current) use of insulin
CPT/HCPCS: 17250

== ENCOUNTER → 2021-07-27 09:17 | Outpatient (CLI) | payer MEDICARE, SELFPAY ==
[2020-07-09 19:24] VITALS: BMI 26.6
== END ==
PROVIDERS: PCP Family Medicine; Referring Provider Family Medicine; Visit Provider Family Medicine
DX: T87.81 Dehiscence of amputation stump (principal); E11.621 Type 2 diabetes mellitus with foot ulcer; L97.522 Non-pressure chronic ulcer of other part of left foot with fat layer exposed; L92.8 Other granulomatous disorders of the skin and subcutaneous tissue; L08.9 Local infection of the skin and subcutaneous tissue, unspecified; E11.40 Type 2 diabetes mellitus with diabetic neuropathy, unspecified; G11.11 Friedreich ataxia; Z89.412 Acquired absence of left great toe; Z89.422 Acquired absence of other left toe(s); Z99.3 Dependence on wheelchair; Z79.4 Long term (current) use of insulin
CPT/HCPCS: 11042; 87070; 87075; 87205; 99213

== ENCOUNTER → 2021-08-04 09:19 | Outpatient (CLI) | payer MEDICARE, SELFPAY ==
[2020-07-09 19:24] VITALS: BMI 26.6
== END ==
PROVIDERS: PCP Family Medicine; Referring Provider Family Medicine; Visit Provider Family Medicine
DX: T87.81 Dehiscence of amputation stump (principal); E11.621 Type 2 diabetes mellitus with foot ulcer; E11.40 Type 2 diabetes mellitus with diabetic neuropathy, unspecified; G11.11 Friedreich ataxia; Z89.412 Acquired absence of left great toe; Z89.422 Acquired absence of other left toe(s); Z99.3 Dependence on wheelchair; Z79.4 Long term (current) use of insulin
CPT/HCPCS: 11042

== ENCOUNTER → 2021-08-10 08:50 | Outpatient (CLI) | payer MEDICARE, SELFPAY ==
[2020-07-09 19:24] VITALS: BMI 26.6
== END ==
PROVIDERS: PCP Family Medicine; Referring Provider Family Medicine; Visit Provider Family Medicine
DX: T87.81 Dehiscence of amputation stump (principal); E11.621 Type 2 diabetes mellitus with foot ulcer; L97.522 Non-pressure chronic ulcer of other part of left foot with fat layer exposed; E11.51 Type 2 diabetes mellitus with diabetic peripheral angiopathy without gangrene; E11.40 Type 2 diabetes mellitus with diabetic neuropathy, unspecified; G11.11 Friedreich ataxia; Z89.412 Acquired absence of left great toe; Z89.422 Acquired absence of other left toe(s); Z99.3 Dependence on wheelchair; Z79.4 Long term (current) use of insulin
CPT/HCPCS: 11042; 99212

== ENCOUNTER → 2021-08-17 08:45 | Outpatient (CLI) | payer MEDICARE, SELFPAY ==
[2020-07-09 19:24] VITALS: BMI 26.6
== END ==
PROVIDERS: PCP Family Medicine; Referring Provider Family Medicine; Visit Provider Family Medicine
DX: T87.81 Dehiscence of amputation stump (principal); E11.621 Type 2 diabetes mellitus with foot ulcer; L97.522 Non-pressure chronic ulcer of other part of left foot with fat layer exposed; E11.51 Type 2 diabetes mellitus with diabetic peripheral angiopathy without gangrene; E11.40 Type 2 diabetes mellitus with diabetic neuropathy, unspecified; G11.11 Friedreich ataxia; Z89.412 Acquired absence of left great toe; Z89.422 Acquired absence of other left toe(s); Z99.3 Dependence on wheelchair; Z79.4 Long term (current) use of insulin
CPT/HCPCS: 15275; 99212; Q4110

== ENCOUNTER → 2021-08-24 08:56 | Outpatient (CLI) | payer MEDICARE, SELFPAY ==
[2020-07-09 19:24] VITALS: BMI 26.6
== END ==
PROVIDERS: PCP Family Medicine; Referring Provider Family Medicine; Visit Provider Family Medicine
DX: E11.621 Type 2 diabetes mellitus with foot ulcer (principal); T81.31XA Disruption of external operation (surgical) wound, not elsewhere classified, initial encounter; L97.522 Non-pressure chronic ulcer of other part of left foot with fat layer exposed; E11.40 Type 2 diabetes mellitus with diabetic neuropathy, unspecified; Z89.422 Acquired absence of other left toe(s); E11.649 Type 2 diabetes mellitus with hypoglycemia without coma; I25.10 Atherosclerotic heart disease of native coronary artery without angina pectoris; R60.0 Localized edema
CPT/HCPCS: 15275; 99213; Q4110

== ENCOUNTER → 2021-08-31 14:59 | Outpatient (CLI) | payer MEDICARE, SELFPAY ==
[2020-07-09 19:24] VITALS: BMI 26.6
== END ==
PROVIDERS: PCP Family Medicine; Referring Provider Family Medicine; Visit Provider Family Medicine
DX: T87.89 Other complications of amputation stump (principal); T81.89XA Other complications of procedures, not elsewhere classified, initial encounter; E11.621 Type 2 diabetes mellitus with foot ulcer; L97.522 Non-pressure chronic ulcer of other part of left foot with fat layer exposed; R60.0 Localized edema
CPT/HCPCS: 99212; 99213

== ENCOUNTER → 2021-09-07 08:46 | Outpatient (CLI) | payer MEDICARE, SELFPAY ==
[2020-07-09 19:24] VITALS: BMI 26.6
== END ==
PROVIDERS: PCP Family Medicine; Referring Provider Family Medicine; Visit Provider Family Medicine
DX: E11.621 Type 2 diabetes mellitus with foot ulcer (principal); L97.522 Non-pressure chronic ulcer of other part of left foot with fat layer exposed; T81.31XA Disruption of external operation (surgical) wound, not elsewhere classified, initial encounter; Z89.422 Acquired absence of other left toe(s); G11.11 Friedreich ataxia
CPT/HCPCS: 15275; 99212; 99214; Q4110

== ENCOUNTER → 2021-09-14 08:52 | Outpatient (CLI) | payer MEDICARE, SELFPAY ==
[2020-07-09 19:24] VITALS: BMI 26.6
== END ==
PROVIDERS: PCP Family Medicine; Referring Provider Family Medicine; Visit Provider Family Medicine
DX: E11.621 Type 2 diabetes mellitus with foot ulcer (principal); L97.522 Non-pressure chronic ulcer of other part of left foot with fat layer exposed; T81.31XA Disruption of external operation (surgical) wound, not elsewhere classified, initial encounter; Z89.422 Acquired absence of other left toe(s); G11.11 Friedreich ataxia
CPT/HCPCS: 15275; Q4110

== ENCOUNTER → 2021-09-21 08:56 | Outpatient (CLI) | payer MEDICARE, SELFPAY ==
[2020-07-09 19:24] VITALS: BMI 26.6
== END ==
PROVIDERS: PCP Family Medicine; Referring Provider Family Medicine; Visit Provider Family Medicine
DX: E11.621 Type 2 diabetes mellitus with foot ulcer (principal); L97.522 Non-pressure chronic ulcer of other part of left foot with fat layer exposed; T87.89 Other complications of amputation stump; Z89.422 Acquired absence of other left toe(s); G11.11 Friedreich ataxia; E11.649 Type 2 diabetes mellitus with hypoglycemia without coma
CPT/HCPCS: 15275; 99214; Q4105

== ENCOUNTER → 2021-09-27 09:58 | Outpatient (CLI) | payer MEDICARE, SELFPAY ==
[2020-07-09 19:24] VITALS: BMI 26.6
== END ==
PROVIDERS: PCP Family Medicine; Referring Provider Family Medicine; Visit Provider Family Medicine
DX: E11.621 Type 2 diabetes mellitus with foot ulcer (principal); L97.522 Non-pressure chronic ulcer of other part of left foot with fat layer exposed; T81.31XA Disruption of external operation (surgical) wound, not elsewhere classified, initial encounter; R60.0 Localized edema; G11.11 Friedreich ataxia; Z89.422 Acquired absence of other left toe(s)
CPT/HCPCS: 99212

== ENCOUNTER → 2021-10-20 09:32 | Outpatient (CLI) | payer MEDICARE, SELFPAY ==
[2020-07-09 19:24] VITALS: BMI 26.6
== END ==
PROVIDERS: PCP Family Medicine; Referring Provider Family Medicine; Visit Provider Family Medicine
DX: E11.621 Type 2 diabetes mellitus with foot ulcer (principal); T81.31XA Disruption of external operation (surgical) wound, not elsewhere classified, initial encounter; L97.522 Non-pressure chronic ulcer of other part of left foot with fat layer exposed; Z89.422 Acquired absence of other left toe(s); R60.0 Localized edema
CPT/HCPCS: 15275; 99212; Q4105

== ENCOUNTER → 2021-11-03 09:33 | Outpatient (CLI) | payer MEDICARE, SELFPAY ==
[2020-07-09 19:24] VITALS: BMI 26.6
--- NOTE | 2021-11-03 09:35 | DI.RAD.S_ITS ---
PROCEDURE: XR THORACIC SPINE 3V INDICATIONS: RIB PAIN TECHNIQUE: Three views of the thoracic spine were acquired. COMPARISON: None. FINDINGS: Bones: Moderate compression deformity of the L1 vertebral body is of uncertain age. No acute thoracic spinal compression fracture. No suspicious bony lesions. 12 pairs of ribs are noted, and appear intact where visualized. Soft tissues: No paravertebral stripe thickening. IMPRESSION: Moderate L1 compression fracture is of uncertain age. Dictated by: Marshal Milan M.D. on 11/03/2021 at 11:29 Approved by: Marshal Milan M.D. on 11/03/2021 at 11:31
--- NOTE | 2021-11-03 09:35 | DI.RAD.S_ITS ---
PROCEDURE: XR LUMBAR SPINE MIN 4V INDICATIONS: BACK PAIN TECHNIQUE: 5 views of the lumbar spine were acquired, including bilateral oblique views. COMPARISON: [facility], , L-SPINE 2-3 VIEWS, 03/12/2008, 16:47. FINDINGS: Bones: 5 nonrib-bearing vertebrae are present. There is normal bony alignment. Moderate compression fracture at L1 is of uncertain age. There is compression fracture at the superior endplate of L4. Multilevel disc space narrowing degenerative endplate changes are seen. Multilevel facet hypertrophy is noted. No suspicious bony lesions. Soft tissues: Overlying bowel gas pattern is normal. No suspicious soft tissue calcifications. Oblique images: No pars defects. IMPRESSION: 1. Chronic moderate L1 compression fracture and mild L4 compression fracture are similar in extent when compared to the radiographs from 03/12/2008. 2. Progressive multilevel spondylosis. Dictated by: Marshal Milan M.D. on 11/03/2021 at 11:31 Approved by: Marhsal Milan M.D. on 11/03/2021 at 11:34
== END ==
PROVIDERS: PCP Family Medicine; Referring Provider Physical Medicine & Rehabilitation; Visit Provider Physical Medicine & Rehabilitation
DX: M47.816 Spondylosis without myelopathy or radiculopathy, lumbar region (principal); M54.9 Dorsalgia, unspecified; R07.81 Pleurodynia; M48.56XS Collapsed vertebra, not elsewhere classified, lumbar region, sequela of fracture
CPT/HCPCS: 72072; 72110

== ENCOUNTER → 2021-11-03 11:43 | Outpatient (CLI) | payer MEDICARE, SELFPAY ==
[2020-07-09 19:24] VITALS: BMI 26.6
== END ==
PROVIDERS: PCP Family Medicine; Referring Provider Family Medicine; Visit Provider Family Medicine
DX: M54.9 Dorsalgia, unspecified (principal); R07.81 Pleurodynia; M47.816 Spondylosis without myelopathy or radiculopathy, lumbar region; M48.56XS Collapsed vertebra, not elsewhere classified, lumbar region, sequela of fracture; E11.621 Type 2 diabetes mellitus with foot ulcer; T87.81 Dehiscence of amputation stump; L97.522 Non-pressure chronic ulcer of other part of left foot with fat layer exposed; Z89.422 Acquired absence of other left toe(s); G11.11 Friedreich ataxia
CPT/HCPCS: 72072; 72110; 99212

== ENCOUNTER → 2021-11-09 13:47 | Outpatient (CLI) | payer MEDICARE, SELFPAY ==
[2020-07-09 19:24] VITALS: BMI 26.6
== END ==
PROVIDERS: PCP Family Medicine; Referring Provider Family Medicine; Visit Provider Family Medicine
DX: E11.621 Type 2 diabetes mellitus with foot ulcer (principal); L97.522 Non-pressure chronic ulcer of other part of left foot with fat layer exposed; E11.40 Type 2 diabetes mellitus with diabetic neuropathy, unspecified; T87.81 Dehiscence of amputation stump; G11.11 Friedreich ataxia; R60.0 Localized edema; Z99.3 Dependence on wheelchair; Z89.422 Acquired absence of other left toe(s); S32.040S Wedge compression fracture of fourth lumbar vertebra, sequela; S32.010S Wedge compression fracture of first lumbar vertebra, sequela
CPT/HCPCS: 97597; 99214

== ENCOUNTER → 2021-11-23 08:38 | Outpatient (CLI) | payer MEDICARE, SELFPAY ==
[2020-07-09 19:24] VITALS: BMI 26.6
== END ==
PROVIDERS: PCP Family Medicine; Referring Provider Family Medicine; Visit Provider Family Medicine
DX: S32.019A Unspecified fracture of first lumbar vertebra, initial encounter for closed fracture (principal); S32.049A Unspecified fracture of fourth lumbar vertebra, initial encounter for closed fracture; M47.816 Spondylosis without myelopathy or radiculopathy, lumbar region; M47.817 Spondylosis without myelopathy or radiculopathy, lumbosacral region; E11.621 Type 2 diabetes mellitus with foot ulcer; L97.522 Non-pressure chronic ulcer of other part of left foot with fat layer exposed; T87.81 Dehiscence of amputation stump; Z89.422 Acquired absence of other left toe(s); G11.11 Friedreich ataxia; Z99.3 Dependence on wheelchair
CPT/HCPCS: 72148; 99212; 99213

== ENCOUNTER → 2021-11-23 09:24 | Outpatient (CLI) | payer MEDICARE, SELFPAY ==
[2020-07-09 19:24] VITALS: BMI 26.6
--- NOTE | 2021-11-23 09:25 | DI.MRI.S_ITS ---
PROCEDURE: MR LUMBAR SPINE WO CON INDICATIONS: Chronic progressive thoracic lumbar pain L1 and L4 fx TECHNIQUE: Noncontrast sagittal T1 spin echo and T2 fast echo, sagittal STIR, and T2 fast spin echo through the lumbar spine. In cases with scoliosis, additional coronal T2 fast spin echo may be performed. COMPARISON: [facility], MR, L-SPINE WITHOUT CONTRAST, 05/05/2008, 12:29. [facility], CR, XR LUMBAR SPINE MIN 4V, 11/03/2021, 9:38. FINDINGS: Image quality: Excellent. Alignment and Curvature: Mild dextroconvex scoliotic curvature is seen. Bone Marrow: Marrow is of normal overall signal. No acute vertebral body compression fractures. Chronic L1 and L4 compression deformities are seen. No abnormal STIR signal can be seen within the vertebral bodies to suggest acute or subacute fracture. Spinal Cord: Conus medullaris terminates at the L1 level. Visualized cord demonstrates normal signal and size. Paraspinous Soft Tissues: No paravertebral masses. T12-L1: The disc height and disk signal are well-preserved. Minimal disc bulge is seen. No significant neural foraminal or central canal narrowing can be seen. When comparison is made with the prior images, these findings are similar. L1-L2: Bridging endplate osteophytes are seen. No significant neural foraminal or central canal narrowing can be seen. No significant change from the prior. L2-L3: No significant abnormality is seen. L3-L4: Mild to moderate loss of disc height and disc signal can be seen. Bridging endplate osteophytes are seen. Mild to moderate disc bulge is seen. Mild facet joint hypertrophy is seen. No significant neural foraminal or central canal narrowing can be seen. These imaging findings have progressed compared to the prior study. L4-L5: The disc height is well-preserved. Loss of disc signal is seen at this level. Bridging endplate osteophytes are seen. Mild to moderate disc bulge is seen, with a mild central disc protrusion. There is a focal annular fissure seen posteriorly. Mild facet joint hypertrophy is seen. There is moderate left-sided and [id number] right-sided neural foraminal narrowing. Mild to moderate central canal narrowing is seen at this level. The degenerative changes are mildly progressed compared to 2009. L5-S1: Mild loss of disc height is seen. Loss of disc signal is seen. Mild generalized disc bulge is seen. There is a superimposed central disc protrusion. Mild facet joint hypertrophy is seen. Moderate bilateral neural foraminal narrowing is seen. Mild central canal narrowing is seen. When comparison is made with the prior images, these findings are similar. IMPRESSION: Chronic L1 and L4 compression deformities are seen. Multiple levels of lumbar spine degenerative change are seen, which are mildly progressed at L3-L4 and L4-L5 compared to 2009. Dictated by: Nestor Lopez M.D. on 11/23/2021 at 14:51 Approved by: Nestor Lopez M.D. on 11/23/2021 at 14:54
== END ==
PROVIDERS: PCP Family Medicine; Referring Provider Physical Medicine & Rehabilitation; Visit Provider Physical Medicine & Rehabilitation
DX: S32.019A Unspecified fracture of first lumbar vertebra, initial encounter for closed fracture (principal); S32.049A Unspecified fracture of fourth lumbar vertebra, initial encounter for closed fracture; M47.816 Spondylosis without myelopathy or radiculopathy, lumbar region; M47.817 Spondylosis without myelopathy or radiculopathy, lumbosacral region
CPT/HCPCS: 72148

== ENCOUNTER → 2021-12-07 08:48 | Outpatient (CLI) | payer MEDICARE, SELFPAY ==
[2020-07-09 19:24] VITALS: BMI 26.6
== END ==
PROVIDERS: PCP Family Medicine; Referring Provider Family Medicine; Visit Provider Family Medicine
DX: E11.621 Type 2 diabetes mellitus with foot ulcer (principal); T87.81 Dehiscence of amputation stump; L97.522 Non-pressure chronic ulcer of other part of left foot with fat layer exposed; Z89.422 Acquired absence of other left toe(s); G11.11 Friedreich ataxia
CPT/HCPCS: 99212; 99213

== ENCOUNTER → 2022-11-28 10:36 | Outpatient (CLI) | payer MEDICARE, SELFPAY ==
[2020-07-09 19:24] VITALS: BMI 26.6
--- NOTE | 2022-11-28 | DI.MRI.S_ITS ---
PROCEDURE: MR FOOT LT WO/W CON INDICATIONS: Pressure ulcer of other site, unspecified stage. Left foot TECHNIQUE: Noncontrast coronal T1 spin echo and STIR, sagittal T1 spin echo with fat saturation and STIR, axial T1 spin echo and T2 fast spin echo with fat saturation. After the administration of contrast, axial/sagittal/coronal T1 spin echo with fat saturation through the left foot. COMPARISON: , MR, MR FOOT LT WO/W CON, 04/30/2020, 10:32. FINDINGS: Image quality: Excellent. Bones: There is prior transmetatarsal amputation of the forefoot. Surgical margins are clean. No gross marrow edema. No acute fracture or dislocation is seen. No bony erosive changes are noted. No area of abnormal intraosseous enhancement. Soft tissues: There is ulceration over dorsal aspect of midfoot at the level of TMT joints. Surrounding soft tissue edema is seen. No discrete drainable abscess collection. No enhancing soft tissue mass. Visualized plantar foot muscles are normal in signal. Extensor and flexor tendons are grossly intact. IMPRESSION: 1. Prior transmetatarsal amputation of forefoot. Surgical margins are clean. No acute fracture or dislocation. No suspicious bony lesions. No evidence of osteomyelitis. 2. Ulceration over dorsal aspect of midfoot at the level of TMT joint with surrounding cellulitis. No discrete drainable abscess collection. Extensor and flexor tendons are grossly intact. No gross muscle signal abnormalities. Dictated by: Easton Morfin M.D. on 11/28/2022 at 17:03 Approved by: Easton Morfin M.D. on 11/28/2022 at 17:09
== END ==
LOC: MRI 10:37
PROVIDERS: PCP Family Medicine; Referring Provider Family Medicine; Visit Provider Family Medicine
DX: L89.899 Pressure ulcer of other site, unspecified stage (principal); L03.116 Cellulitis of left lower limb; Z89.432 Acquired absence of left foot
CPT/HCPCS: 73720; A9579

== ENCOUNTER → 2023-02-27 10:35 | Outpatient (CLI) | payer MEDICARE, SELFPAY ==
[2020-07-09 19:24] VITALS: BMI 26.6
== END ==
LOC: WC 10:37
PROVIDERS: PCP Family Medicine; Referring Provider Family Medicine; Visit Provider Surgery
DX: E11.621 Type 2 diabetes mellitus with foot ulcer (principal); L97.512 Non-pressure chronic ulcer of other part of right foot with fat layer exposed; L53.9 Erythematous condition, unspecified; R23.0 Cyanosis; G82.20 Paraplegia, unspecified; F17.290 Nicotine dependence, other tobacco product, uncomplicated; Z79.2 Long term (current) use of antibiotics
CPT/HCPCS: 11042; 87070; 87075; 87077; 87186; 87205; 99213; 99214

== ENCOUNTER → 2023-03-12 11:02 | Outpatient (CLI) | payer MEDICARE, SELFPAY ==
[2020-07-09 19:24] VITALS: BMI 26.6
--- NOTE | 2023-03-12 11:04 | DI.RAD.S_ITS ---
PROCEDURE: XR FOOT RT MIN 3V INDICATIONS: Non-healing wound, right foot TECHNIQUE: 3 views of the foot were acquired. COMPARISON: [facility], CR, XR FOOT LT MIN 3V, 12/14/2020, 13:25. [facility], CR, XR FOOT LT MIN 3V, 04/29/2020, 14:53. FINDINGS: Bones: No fractures or dislocations. Mild hallux valgus angulation of the 1st MTP. Mild interphalangeal joint degeneration. The 2nd proximal phalanx is not well visualized secondary to flexion. No suspicious bony lesions. Soft tissues: No tibiotalar joint effusion. Achilles tendon appears normal. IMPRESSION: No acute bony abnormality. No definite erosions are seen, however radiograph has low sensitivity for early phase osteomyelitis. If clinically indicated, MRI can be obtained for further evaluation. Dictated by: Andrei Calvert M.D. on 03/12/2023 at 13:45 Approved by: Andrei Calvert M.D. on 03/12/2023 at 13:47
== END ==
PROVIDERS: PCP Family Medicine; Referring Provider Surgery; Visit Provider Surgery
DX: E11.621 Type 2 diabetes mellitus with foot ulcer (principal); L97.519 Non-pressure chronic ulcer of other part of right foot with unspecified severity; M20.11 Hallux valgus (acquired), right foot; M19.071 Primary osteoarthritis, right ankle and foot
CPT/HCPCS: 73630

== ENCOUNTER → 2023-03-13 10:44 | Outpatient (CLI) | payer MEDICARE, SELFPAY ==
[2020-07-09 19:24] VITALS: BMI 26.6
== END ==
LOC: WC 10:45
PROVIDERS: PCP Family Medicine; Referring Provider Family Medicine; Visit Provider Surgery
DX: E11.621 Type 2 diabetes mellitus with foot ulcer (principal); L97.512 Non-pressure chronic ulcer of other part of right foot with fat layer exposed; R23.0 Cyanosis; L53.9 Erythematous condition, unspecified
CPT/HCPCS: 11042; 99213

== ENCOUNTER → 2023-03-28 08:52 | Outpatient (CLI) | payer MEDICARE, SELFPAY ==
[2020-07-09 19:24] VITALS: BMI 26.6
--- NOTE | 2023-03-28 08:52 | DI.US.S_ITS ---
PROCEDURE: US ARTERIAL DUPLEX LE RT INDICATIONS: Non-healing wound of right foot TECHNIQUE: Color and pulse Doppler interrogation was performed of the right lower extremity arterial system, with image documentation. COMPARISON: [facility], , US ARTERIAL DUPLEX LE LT, 04/30/2020, 8:27. FINDINGS: Common femoral artery: 101 cm/sec, with triphasic flow. Deep femoral artery: 132 cm/sec, with triphasic flow. Proximal superficial femoral artery: 119 cm/sec, with triphasic flow. Mid superficial femoral artery: 88 cm/sec, with biphasic flow. Distal superficial femoral artery: 124 cm/sec, with triphasic flow. Popliteal artery: 58 cm/sec, with triphasic flow. Posterior tibial artery: 69 cm/sec, with triphasic flow. Anterior tibial artery/dorsalis pedis: 64 cm/sec, with triphasic flow. Lewis-scale imaging description: Multiphasic waveforms of the arterial vasculature. Mild to moderate scattered atherosclerotic plaque. IMPRESSION: Multiphasic waveforms of the right lower extremity arterial vasculature with no velocity shift to suggest a hemodynamically significant stenosis. Dictated by: Ziggy Beregr M.D. on 03/28/2023 at 11:26 Approved by: Ziggy Berger M.D. on 03/28/2023 at 11:31
== END ==
PROVIDERS: PCP Family Medicine; Referring Provider Surgery; Visit Provider Surgery
DX: E11.621 Type 2 diabetes mellitus with foot ulcer (principal); L97.512 Non-pressure chronic ulcer of other part of right foot with fat layer exposed; L97.516 Non-pressure chronic ulcer of other part of right foot with bone involvement without evidence of necrosis; L53.9 Erythematous condition, unspecified; R23.0 Cyanosis; E11.42 Type 2 diabetes mellitus with diabetic polyneuropathy
CPT/HCPCS: 93926; 99212

== ENCOUNTER → 2023-03-28 13:07 | Outpatient (CLI) | payer MEDICARE, SELFPAY ==
[2020-07-09 19:24] VITALS: BMI 26.6
== END ==
PROVIDERS: PCP Family Medicine; Referring Provider Family Medicine; Visit Provider Surgery
DX: E11.621 Type 2 diabetes mellitus with foot ulcer (principal); L97.512 Non-pressure chronic ulcer of other part of right foot with fat layer exposed; L97.516 Non-pressure chronic ulcer of other part of right foot with bone involvement without evidence of necrosis; L53.9 Erythematous condition, unspecified; R23.0 Cyanosis; E11.42 Type 2 diabetes mellitus with diabetic polyneuropathy
CPT/HCPCS: 99212; 99213

== ENCOUNTER → 2023-04-11 14:57 | Outpatient (CLI) | payer MEDICARE, SELFPAY ==
[2020-07-09 19:24] VITALS: BMI 26.6
== END ==
LOC: WC 14:59
PROVIDERS: PCP Family Medicine; Referring Provider Family Medicine; Visit Provider Nurse Practitioner Family
DX: E11.621 Type 2 diabetes mellitus with foot ulcer (principal); L97.512 Non-pressure chronic ulcer of other part of right foot with fat layer exposed; L97.516 Non-pressure chronic ulcer of other part of right foot with bone involvement without evidence of necrosis; S91.124A Laceration with foreign body of right lesser toe(s) without damage to nail, initial encounter; R60.0 Localized edema; G82.20 Paraplegia, unspecified; G11.11 Friedreich ataxia; Z99.3 Dependence on wheelchair
CPT/HCPCS: 11042; 99204; 99213